=== PATIENT | female | born 1940 | race Caucasian/White ===

== ENCOUNTER 2017-02-02 07:31 | Emergency (ER) | payer OTHER ==
[2017-02-02 07:49] VITALS: BMI 20.9
[2017-02-02 08:11] VITALS: BP 189/77
[2017-02-02 08:18] LABS: BASOPHILS # (AUTO) 0.1 X10^3/uL (0.0-0.1); BASOPHILS % (AUTO) 0.9 % (0.2-1.0); EOSINOPHILS % (AUTO) 0.7 % (0.9-2.9); HEMATOCRIT 37.2 % (36.0-47.0); HEMOGLOBIN 12.8 g/dL (12.0-16.0); LYMPHOCYTES # (AUTO) 1.4 X10^3/uL (1.3-2.9); LYMPHOCYTES % (AUTO) 23.1 % (21.0-51.0); MEAN CORPUSCULAR HEMOGLOBIN 30.1 pg (27.0-34.0); MEAN CORPUSCULAR HGB CONC 34.3 g/dL (33.0-35.0); MEAN CORPUSCULAR VOLUME 87.8 fL (80.0-100.0); MEAN PLATELET VOLUME 8.7 fL (7.4-11.0); MONOCYTES # (AUTO) 0.6 x10^3/uL (0.3-0.8); MONOCYTES % (AUTO) 9.9 % (0.0-13.0); NEUTROPHILS % (AUTO) 65.4 % (42.0-75.0); PLATELET COUNT 342 X10^3/uL (150.0-450.0); RED BLOOD COUNT 4.24 X10^6/uL (3.5-5.4); RED CELL DISTRIBUTION WIDTH 13.6 % (11.6-16.5); WHITE BLOOD COUNT 6.1 X10^3/uL (3.6-10.0)
[2017-02-02 08:22] LABS: BLOOD UREA NITROGEN 12 mg/dL (7-18); CALCIUM 8.6 mg/dL (8.5-10.1); CARBON DIOXIDE 23.3 mmol/L (21-32); CHLORIDE 107 mmol/L (98-107); COR NA(FOR HYPERGLY) 142 mmol/L (136-145); CREATININE 0.75 mg/dL (0.55-1.02); SODIUM 142 mmol/L (136-145); eGFR BLACK RACES > 60 (>60); eGFR NON BLACK RACES > 60 (>60)
--- NOTE | 2017-02-02 08:36 | RAD ---
HISTORY: 76-year-old female with flu-like symptoms for 1 week. Study: Frontal view of the chest. Comparison: None. Findings: The trachea is midline. The cardiac silhouette is enlarged. The lungs are clear without focal conso lidation, effusion or pneumothorax. Soft tissues are unremarkable. Osseous structures are unremarkab le. IMPRESSION: 1. Cardiomegaly without other acute cardiopulmonary process. Reported By:
[2017-02-02] MEDS ORDERED: NS 1000 ML 1,000 ML ONE (09:10)
[2017-02-02] MEDS ORDERED: NS 1000 ML 1,000 ML IV ONE (09:16)
[2017-02-02] MEDS ORDERED: SOLU-Medrol 125 MG VIAL IVP ONE (10:39)
[2017-02-02] MEDS ORDERED: SOLU-Medrol 125 MG VIAL ONE (10:42)
[2017-02-02] MEDS ORDERED: ROCEPHIN VIAL 1 GM ONE (10:42)
[2017-02-02] MEDS ORDERED: DUONEB 0.5 MG/3 MG ONE (10:54)
[2017-02-02] MEDS ORDERED: ROCEPHIN 1 GM IV PREMIX 1 GM/50 ML IV.SOLN. IV SCH (11:00)
[2017-02-02] MEDS ORDERED: DUONEB 0.5 MG/3 MG NEB ONE (11:00)
--- NOTE | 2017-02-02 11:07 | DR.GENAD ---
HPI - PCP Primary Care Physician: amanda - HPI Comment HPI Comment: Pt is a 76 y/o WF from [place], [place] that was seen by her primary care provider, Dana Galicia NP, approximately one week in the office setting. Pt reports being told that she was influenza A positive and was started on Azithromycin and Tamiflu 7 days ago. The patient states that she has now completed both of these medications and still feels "terrible". - Complaint/Symptoms Chief Complaint Doctors Comments: Cough and congestion for one week Chief Complaint:: "I went to the doctor thursday and tested positive for the flu they gave me fluids and an antibotic and im no better and out of my antibotic now." - Source History Provided: Patient - Mode of Arrival Mode of Arrival: Ambulatory - Timing Onset of Chief Complaint: 01/27/17 - Duration Duration: Since Onset How lon Duration: Days - Severity Severity: Moderate PMH - PMH Past Medical History: Yes Past Medical History: Hypertension Past Surgical History: Yes Surgical History: Hysterectomy - Family History History of Family Medical Conditions: No - Social History Does patient currently use any type of tobacco product: No Have you used tobacco products in the last 12 months: No Type of Tobacco Use: None Does any household member use tobacco: No Alcohol Use: None Do you use any recreational Drugs:: No Lives With: Family Lives Where: Home - infectious screening In the last 2 months have you had wt loss of >10#?: NO Have you had fever, night sweats or hemotysis?: No Have you traveled outside the country in the last 6 months?: No Isolation: Standard ROS - Review of Systems Constitutional: See HPI Eyes: No Symptoms Reported ENTM: No Symptoms Reported Respiratoy: See HPI Cardiovascular: No Symptoms Reported Gastrointestinal/Abdominal: No Symptoms Reported Genitourinary: No Symptoms Reported Neurological: No Symptoms Reported Musculoskeletal: No Symptoms Reported Integumentary: No Symptoms Reported Hematologic/Lymphatic: No Symptoms Reported Endocrine: No Symptoms Reported Psychiatric: No Symptoms Reported PE - Vital Signs Vitals: Temperature 97.7 F Pulse Rate 79 Respiratory Rate 18 Blood Pressure [Left Arm] 189/77 Blood Pressure 212/81 O2 Sat by Pulse Oximetry 98 - General Limitations: No Limitations - Head Head Exam: Normal Inspection - Eyes Eye exam: Normal Appearance - ENT ENT Exam: Normal Exam External Ear Exam: Normal External Inspection Nose Exam: Normal Nose Exam Mouth Exam: Normal Inspection Throat Exam: Normal Inspection - Neck Neck Exam: Normal Inspection - Chest Chest Inspection: Normal Inspection - Respiratory Respiratory Exam: Bilateral Wheezing, Bilateral Rhonchi - Cardiovascular Cardiovascular Exam: Regular Rate - Abdominal Exam Abdominal Exam: Normal Inspection, Normal Bowel Sounds, Soft - Extremities Extremities Exam: Normal Inspection - Back Back Exam: Normal Inspection - Neurologic Neurological Exam: Alert, Oriented X3, CN II-XII Intact, Normal Gait - Psychiatric Psychiatric Exam: Normal Affect - Skin Skin Exam: Warm, Dry, Intact Course - Treatment Treatment: NS X 1 liters. Solumedrol 125mg IV X one. Rocephin 1gm IV X one. Albuterol JN X one - Reevaluation 1st: Improved (Initially seen by Dr. Dangelo) - Education/Counseling Education/Counseling: Patient Educated On: Treatment, Diagnosis, Prognosis, Needs for Follow Up (F/U with primary care provider within the next 7 days) ROR - Labs Reviewed Result Diagrams: 02/02/17 08:13 02/02/17 08:13 Laboratory: WBC 6.1 X10^3/uL (3.6-10.0) 02/02/17 08:13 RBC 4.24 X10^6/uL (3.5-5.4) 02/02/17 08:13 Hgb 12.8 g/dL (12.0-16.0) 02/02/17 08:13 Hct 37.2 % (36.0-47.0) 02/02/17 08:13 MCV 87.8 fL (80.0-100.0) 02/02/17 08:13 MCH 30.1 pg (27.0-34.0) 02/02/17 08:13 MCHC 34.3 g/dL (33.0-35.0) 02/02/17 08:13 RDW 13.6 % (11.6-16.5) 02/02/17 08:13 Plt Count 342 X10^3/uL (150.0-450.0) 02/02/17 08:13 MPV 8.7 fL (7.4-11.0) 02/02/17 08:13 Neut % 65.4 % (42.0-75.0) 02/02/17 08:13 Lymph % 23.1 % (21.0-51.0) 02/02/17 08:13 [place] % 9.9 % (0.0-13.0) 02/02/17 08:13 Eos % 0.7 % (0.9-2.9) L 02/02/17 08:13 Baso % 0.9 % (0.2-1.0) 02/02/17 08:13 Neut # 4.0 x10^3/uL (2.2-4.8) 02/02/17 08:13 Lymph # 1.4 X10^3/uL (1.3-2.9) 02/02/17 08:13 [place] # 0.6 x10^3/uL (0.3-0.8) 02/02/17 08:13 Eos # 0.0 x10^3/uL (0.0-0.2) 02/02/17 08:13 Baso # 0.1 X10^3/uL (0.0-0.1) 02/02/17 08:13 Absolute Nucleated RBC 0.0 /100WBC 02/02/17 08:13 Sodium 142 mmol/L (136-145) 02/02/17 08:13 Corrected Sodium 142 mmol/L (136-145) 02/02/17 08:13 Potassium 3.5 mmol/L (3.5-5.1) 02/02/17 08:13 Chloride 107 mmol/L (98-107) 02/02/17 08:13 Carbon Dioxide 23.3 mmol/L (21-32) 02/02/17 08:13 BUN 12 mg/dL (7-18) 02/02/17 08:13 Creatinine 0.75 mg/dL (0.55-1.02) 02/02/17 08:13 Est GFR (MDRD) Af Amer > 60 (>60) 02/02/17 08:13 Est GFR (MDRD) Non-Af > 60 (>60) 02/02/17 08:13 Glucose 111 mg/dL (65-99) H 02/02/17 08:13 Calcium 8.6 mg/dL (8.5-10.1) 02/02/17 08:13 - XRAY XRAY Interpreted by: Radiologist (No acute infiltrates) - Diagnosis Discharge Problem: Influenza A - Discharge Plan Disposition: 01 HOME, SELF-CARE Condition: Stable Prescriptions: Levofloxacin [LEVAQUIN TAB 250 MG *] 250 mg PO Q24H #7 tab Oseltamivir Phosphate [Tamiflu] 75 mg PO BID #14 cap - Follow ups/Referrals Follow ups/Referrals: Elder Coy [Primary Care Provider] - 3 days - Instructions Instructions: Influenza, Adult, [id number]
== END 2017-02-02 11:55 | disposition home or self-care (01) ==
LOC: ER 07:53
DX: J11.1 Influenza due to unidentified influenza virus with other respiratory manifestations (principal); I51.7 Cardiomegaly
CPT/HCPCS: 36415; 71010; 80048; 85025; 94640; 96365; 96374; 96375; 99283; A4222; J0696; J2930; J7620

== ENCOUNTER 2021-07-06 20:52 | Inpatient (IN) ==
--- NOTE | 2021-07-06 21:45 | DR.EXTPAIN ---
HPI Time seen Time Seen by Provider: 07/06/21 21:45 PCP Primary Care Physician: antoinette patel HPI Comment HPI Comment: PATIENT IS 81YR OLD FEMALE IN ER WITH NAUSEA, VOMITING AND DIARRHEA TIMES 3 DAYS. NO FEVER OR DYSURIA. TOOK ZOFRAN AND IMMODIUM THIS AM. DENIES CONTACT EXPOSURE. YEIMI HAVING ABDOMINAL PAIN AND GENERALIZED WEANESS. Complaint/Symptoms Chief Complaint Doctor Comments: NAUSEA, VOMITING DIARRHEA TIMES 3 DAYS. Chief Complaint:: "PT STATES SHES THROWING UP AND HAVING DIARHEEA SINCE THURSDAY NIGHT. SHE STATES FRANCIE GIBBS CALLED IN ZOFRAN AND SHE HAS TAKEN IT P RN. SHE REPORTS BEING UNABLE TO EAT AND KEEP ANYTHING DOWN SINCE THURSDAY." Self Treatment fo Chief Complaint: ZOFRAN 6PM. IMMODIUM THIS MORNING. COVID-19 Coronavirus risk:travel/contact w/high risk person: No Has patient experienced Coronavirus symptoms: No Nurses notes reviewed Nurses Notes Review: Yes Source History Provided: Patient and Family Member Mode of arrival Mode of Arrival: Ambulatory Timing Onset of Chief Complaint: 07/03/21 Associated signs and symptoms Associated Signs and Symptoms: Weakness, Pain, Abdominal Pain, Nausea and Vomiting PMH PMH Past Medical History: Yes Past Medical History: Anxiety, Arthritis, Depression, Dyslipidemia, GERD and Hypertension Past Surgical History: Yes Surgical History: Hysterectomy Family History History of Family Medical Conditions: Yes Family Medical History: Hypertension Social History Alcohol Use: None Do you use any recreational Drugs:: No Lives With: Family Lives Where: Home Infectious screening Have you traveled outside the country in the last 6 months?: No Isolation: Standard ROS Review of Systems Constitutional: See HPI, Weakness and Fatigue; negative Fever Eyes: No Symptoms Reported and See HPI; negative Blurred Vision ENTM: No Symptoms Reported and See HPI; negative Nose Discharge or Nose Congestion Respiratoy: No Symptoms Reported and See HPI; negative Moist Cough, Short of Breath or Wheezing Cardiovascular: No Symptoms Reported and See HPI; negative Chest Pain Gastrointestinal/Abdominal: See HPI, Abdominal Pain, Diarrhea, Nausea and Vomiting Genitourinary: No Symptoms Reported and See HPI; negative Dysuria Neurological: No Symptoms Reported, See HPI and Weakness; negative Headache or Dizziness Musculoskeletal: No Symptoms Reported and See HPI; negative Muscle Pain Integumentary: No Symptoms Reported; negative Rash or Juandice Hematologic/Lymphatic: See HPI and Easy Bruising Endocrine: No Symptoms Reported and See HPI; negative Increased Thirst or Increased Urine Psychiatric: No Symptoms Reported and See HPI All Other Systems: Reviewed and Negative PE Vital Signs Vitals: Temperature 97.9 F Pulse Rate 107 Respiratory Rate 18 Blood Pressure [Left Arm] 189/77 Blood Pressure 125/60 O2 Sat by Pulse Oximetry 92 General Limitations: No Limitations General Appearance: Alert and In No Apparent Distress Head Head Exam: Normal Inspection and Atraumatic Eyes Eye exam: Normal Appearance; negative Scleral Icterus or Conjunctival Injection ENT ENT Exam: Normal Exam Neck Neck Exam: Normal Inspection and Trachea Midline; negative Tenderness Chest Chest Inspection: Normal Inspection and Symmetric Chest Wall Rise; negative Tenderness Respiratory Respiratory Exam: Normal Lung Sounds Bilat; negative Accessory Muscle Use, Chest Wall Tenderness or Respiratory Distress Respiratory Exam: Bilateral: Rhonchi Cardiovascular Cardiovascular Exam: Regular Rate, Normal Rhythm and Normal Heart Sounds; negative Systolic Murmur or Diastolic Murmur Abdominal Exam Abdominal Exam: Normal Inspection, Normal Bowel Sounds, Soft and Tenderness Extremities Extremities Exam: Normal Inspection and Normal Capillary Refill Back Back Exam: Normal Inspection; negative (R) CVA Tenderness or (L) CVA Tenderness Neurological Neurological Exam: Alert, Oriented X3 and CN II-XII Intact Psychiatric Psychiatric Exam: Normal Affect and Normal Mood Skin Skin Exam: Warm, Dry, Intact and Normal Color MDM Differential Diagnosis Differential Diagnosis: Other (GASTROENTERITIS, VIRAL SYNDROM, BOWEL OBST., DEHYDRATION, UTI, WEAKNENN.) COURSE Treatment Treatment: SEE ORDERS DONE WHILE PATIENT WAS IN ER. Consultation Consultation Comments: DISCUSSED PATIENT WITH DR. BENAVIDES. SHE WILL ADMIT PATIENT. Education/Counseling Education/Counseling: Patient Educated On: Diagnosis ROR Labs Reviewed Laboratory Results Reviewed?: Yes Result Diagrams: 07/19/21 04:26 07/19/21 04:26 Laboratory: WBC 18.2 X10^3/uL (3.6-10.0) H 07/06/21 22:34 RBC 3.75 X10^6/uL (3.5-5.4) 07/06/21 22:34 Hgb 10.6 g/dL (12.0-16.0) L 07/06/21 22:34 Hct 31.8 % (36.0-47.0) L 07/06/21 22:34 MCV 85.0 fL (80.0-100.0) 07/06/21 22:34 MCH 28.3 pg (27.0-34.0) 07/06/21: MCHC 33.3 g/dL (33.0-35.0) 07/06/21: RDW 14.6 % (11.6-16.5) 07/06/21: Plt Count 301 X10^3/uL (150.0-450.0) 07/06/21 22: MPV 8.7 fL (7.4-11.0) 07/06/21 22: Neut % (Auto) 85.7 % (42.0-75.0) H 07/06/21 22: Lymph % (Auto) 3.7 % (21.0-51.0) L 07/06/21: [place] % (Auto) 10.1 % (0.0-13.0) 07/06/21: Eos % (Auto) 0.2 % (0.9-2.9) L 07/06/21: Baso % (Auto) 0.3 % (0.2-1.0) 07/06/21: Neut # (Auto) 15.6 x10^3/uL (2.2-4.8) H 07/06/21: Lymph # (Auto) 0.7 X10^3/uL (1.3-2.9) L 07/06/21 22: [place] # (Auto) 1.8 x10^3/uL (0.3-0.8) H 07/06/21: Eos # (Auto) 0.0 x10^3/uL (0.0-0.2) 07/06/21 22: Baso # (Auto) 0.1 X10^3/uL (0.0-0.1) 07/06/21: Absolute Nucleated RBC 0.1 /100WBC 07/06/21: Sodium 126 mmol/L (136-145) L 07/06/21 22: Corrected Sodium 127 mmol/L (136-145) L 07/06/21 22: Potassium 3.6 mmol/L (3.5-5.1) 07/06/21 22: Chloride 91 mmol/L (98-107) L 07/06/21 22:34 Carbon Dioxide 25.3 mmol/L (21-32) 07/06/21 22:34 BUN 44 mg/dL (7-18) H 07/06/21 22:34 Creatinine 3.87 mg/dL (0.55-1.02) H 07/06/21 22:34 Est GFR (MDRD) Af Amer 14 (>60) L 07/06/21 22:34 Est GFR (MDRD) Non-Af 12 (>60) L 07/06/21 22:34 Glucose 126 mg/dL (65-99) H 07/06/21 22:34 Calcium 8.6 mg/dL (8.5-10.1) 07/06/21 22:34 Corrected Calcium 9.4 mg/dL (8.5-10.1) 07/06/21 22:34 Total Bilirubin 0.70 mg/dL (0.2-1.0) 07/06/21 22:34 AST 242 Units/L (15-37) H 07/06/21 22:34 ALT 124 Units/L (12-78) H 07/06/21 22:34 Alkaline Phosphatase 80 Units/L (46-116) 07/06/21 22:34 Total Protein 6.9 g/dL (6.4-8.2) 07/06/21 22:34 Albumin 3.0 g/dL (3.4-5.0) L 07/06/21 22:34 Globulin 3.9 g/dL (2.5-4.5) 07/06/21 22:34 Albumin/Globulin Ratio 0.8 Ratio (1.1-2.1) L 07/06/21 22:34 Amylase 35 Units/L (25-115) 07/06/21 22:34 Lipase 52 Units/L (73-393) L 07/06/21 22:34 SARS-CoV-2 (PCR) Negative (NEGATIVE) 07/07/21 00:32 XRAY XRAY Interpreted by: Radiologist (REPORT NOTED.) EKG Rate: 91 [place]: Normal Rhythm: NSR and PVCs Block: None Hypertrophy: None ST: Old, Ant and Infarct Opioid Opioid Risk Tool Total: 0 Total Score Risk Category: Low Risk Copyright: Mat COLLINS predicting aberrant behaviors Diagnosis Discharge Problem: Abdominal pain, Cholecystitis, Acute renal insufficiency, Acute dehydration, Acute hyponatremia
[2021-07-06] MEDS ORDERED: DEMEROL INJ IVP ONE (22:25)
[2021-07-06] MEDS ORDERED: ZOFRAN INJ 4 MG VIAL IVP ONE (22:25)
[2021-07-06] MEDS ORDERED: TORADOL 15 MG VIAL IM ONE (22:30)
[2021-07-06 22:41] LABS: BASOPHILS # (AUTO) 0.1 X10^3/uL (0.0-0.1); BASOPHILS % (AUTO) 0.3 % (0.2-1.0); EOSINOPHILS % (AUTO) 0.2 % (0.9-2.9); HEMATOCRIT 31.8 % (36.0-47.0); HEMOGLOBIN 10.6 g/dL (12.0-16.0); LYMPHOCYTES # (AUTO) 0.7 X10^3/uL (1.3-2.9); LYMPHOCYTES % (AUTO) 3.7 % (21.0-51.0); MEAN CORPUSCULAR HEMOGLOBIN 28.3 pg (27.0-34.0); MEAN CORPUSCULAR HGB CONC 33.3 g/dL (33.0-35.0); MEAN PLATELET VOLUME 8.7 fL (7.4-11.0); MONOCYTES # (AUTO) 1.8 x10^3/uL (0.3-0.8); MONOCYTES % (AUTO) 10.1 % (0.0-13.0); NEUTROPHILS # (AUTO) 15.6 x10^3/uL (2.2-4.8); NEUTROPHILS % (AUTO) 85.7 % (42.0-75.0); RED BLOOD COUNT 3.75 X10^6/uL (3.5-5.4); RED CELL DISTRIBUTION WIDTH 14.6 % (11.6-16.5); WHITE BLOOD COUNT 18.2 X10^3/uL (3.6-10.0)
[2021-07-06] MEDS ORDERED: TORADOL 15 MG VIAL ONE (22:54)
[2021-07-06] MEDS ORDERED: ZOFRAN INJ 4 MG VIAL ONE (22:54)
[2021-07-06] MEDS ORDERED: NS 1,000 ML IV 1,000 ML ONE (22:54)
[2021-07-06 22:56] LABS: CALCIUM 8.6 mg/dL (8.5-10.1); CARBON DIOXIDE 25.3 mmol/L (21-32); COR CA(FOR HYPOALB) 9.4 mg/dL (8.5-10.1); CREATININE 3.87 mg/dL (0.55-1.02); TOTAL PROTEIN 6.9 g/dL (6.4-8.2)
--- NOTE | 2021-07-06 23:05 | CT ---
PROCEDURE: CT Abdomen and Pelvis without Contrast .HISTORY: Nausea, vomiting, and diarrhea with right upper quadrant pain.TECHNIQUE: Axial images were performed through the abdomen and pelvis without the administration of IV contrast with multiplanar reformations . Oral contrast was not administered . Dose reduction techniques including Automated Exposure Control (AEC) and adjustment of mA and kV were utilized .COMPARISON: None .TECHNICAL QUALITY: Satisfactory .FINDINGS:Linear scar versus discoid atelectasis lung bases. Moderate hiatal hernia.Liver, spleen, adrenals, pancreas show no abnormality.Kidneys show no stones or obstruction.Inhomogeneous gallbladder lumen with thickened wall and pericholecystic stranding consistent with gallbladder disease and acute cholecystitis. Normal biliary tree.Trace ascites tip of the right lobe of the liver. No pneumoperitoneum.Mild atherosclerosis aorta.No lymphadenopathy.No bowel obstruction or inflammation. Appendix is not visualized.Pelvis shows previous hysterectomy and no masses or free fluid. Normal urinary bladder.No acute bony abnormality.IMPRESSION:1. Sludge or stones in the gallbladder with acute cholecystitis.2. No other significant abnormality involving abdomen or pelvis.3. Moderate hiatal hernia.Electronically signed by: Juan Francisco Child (July 06, 2021 23:05:22)
[2021-07-06] MEDS: NS 1,000 ML IV 1,000 ML IV SCH (23:26)
[2021-07-07] MEDS ORDERED: ZOSYN VIAL 3.375 GRAMS 3.375 G in NS 100 ML IV 100 ML IV ONE (00:09)
[2021-07-07] MEDS ORDERED: ZOSYN VIAL 3.375 GRAMS IV ONE (00:24)
[2021-07-07] MEDS ORDERED: NS 100 ML IV 100 ML ONE (00:25)
[2021-07-07] MEDS ORDERED: ZOFRAN INJ 4 MG VIAL IVP PRN (01:34)
--- NOTE | 2021-07-07 03:57 | RAD ---
PROCEDURE: Chest X-ray 1 View .HISTORY: Preoperative study for cholecystectomy.TECHNIQUE: AP view .COMPARISON: None .TECHNICAL QUALITY: Satisfactory .FINDINGS:Normal size heart .Mediastinum and hilar regions show no masses or lymphadenopathy .Normal central vascularity .No pulmonary consolidation, masses, pleural fluid, or pneumothorax .No acute bony abnormality .IMPRESSION:No active cardiopulmonary disease .Electronically signed by: Juan Francisco Child (July 07, 2021 03:56:29)
[2021-07-07 05:31] LABS: BASOPHILS # (AUTO) 0.1 X10^3/uL (0.0-0.1); BASOPHILS % (AUTO) 0.4 % (0.2-1.0); EOSINOPHILS # (AUTO) 0.1 x10^3/uL (0.0-0.2); EOSINOPHILS % (AUTO) 1.1 % (0.9-2.9); HEMATOCRIT 28.9 % (36.0-47.0); HEMOGLOBIN 9.7 g/dL (12.0-16.0); LYMPHOCYTES # (AUTO) 0.6 X10^3/uL (1.3-2.9); LYMPHOCYTES % (AUTO) 4.4 % (21.0-51.0); MEAN CORPUSCULAR HEMOGLOBIN 28.5 pg (27.0-34.0); MEAN CORPUSCULAR HGB CONC 33.5 g/dL (33.0-35.0); MEAN CORPUSCULAR VOLUME 85.1 fL (80.0-100.0); MEAN PLATELET VOLUME 9.2 fL (7.4-11.0); MONOCYTES # (AUTO) 1.4 x10^3/uL (0.3-0.8); MONOCYTES % (AUTO) 10.7 % (0.0-13.0); NEUTROPHILS # (AUTO) 10.9 x10^3/uL (2.2-4.8); NEUTROPHILS % (AUTO) 83.4 % (42.0-75.0); RED BLOOD COUNT 3.39 X10^6/uL (3.5-5.4); RED CELL DISTRIBUTION WIDTH 14.4 % (11.6-16.5); WHITE BLOOD COUNT 13.1 X10^3/uL (3.6-10.0)
[2021-07-07 05:38] LABS: ALBUMIN 2.5 g/dL (3.4-5.0); CARBON DIOXIDE 22.9 mmol/L (21-32); COR CA(FOR HYPOALB) 9.2 mg/dL (8.5-10.1); CREATININE 4.06 mg/dL (0.55-1.02); TOTAL PROTEIN 6.1 g/dL (6.4-8.2)
[2021-07-07] MEDS ORDERED: POTASSIUM CHL 40 MEQ/NS 0.45% 500 ML IV PRN (06:14)
[2021-07-07] MEDS ORDERED: POTASSIUM CHLORIDE LIQ 20 MEQ UDC PO PRN (06:14)
[2021-07-07] MEDS ORDERED: KLOR-CON PO PRN (06:14)
[2021-07-07] MEDS ORDERED: K-RIDER 10 MEQ/NS 100 ML 10 MEQ/100 ML BAG IV PRN (06:14)
[2021-07-07] MEDS ORDERED: POTASSIUM CHL 60 MEQ/NS 0.45% 500 ML IV PRN (06:14)
[2021-07-07] MEDS: NS 1,000 ML IV 1,000 ML IV SCH ×4 (08:23→22:49)
[2021-07-07] MEDS: ZOSYN VIAL 3.375 GRAMS 3.375 G in NS 100 ML IV 100 ML IV SCH ×3 (10:00→21:10)
--- NOTE | 2021-07-07 11:10 | DR.H&P ---
H&P History & Physical for Day of: H&P Date: 07/07/21 Chief Complaint Chief Complaint: abdominal pain, nausea/vomiting Allergies Allergies Allergy/AdvReac Type Severity Reaction Status Date / Time codeine Allergy Verified 02/02/17 07:32 History of Present Illness History of Present Illness: Ms Ayala is a 81y/o female with a PMH of HTN, HLD and arthritis who presented with worsening abdominal pain, N/V and poor oral intake. She states her symptoms started Wed after she ate fried fish. She continue to have worsening right sided abdominal pain and right shoulder pain. She has not been able to keep anything down since then. Denies fever or chills. ER work up included CTAP which showed gall bladder stones/sludge concerning for acute cholecystitis. She was admitted for further care, surgery was consulted. Patient was started on IV fluids, antibiotics and pain control. She continues to have RUQ pain, controlled with medications. Denies hx of CAD or DM. No prev surgical complications. Labs reviewed: BUN/Cr 49/4.06 K: 3.3 AST/ALT: 143/95 WBC 13.1 Plan: follow surgery recommendations, continue hydration, pain control. Continue IV Zosyn. Replace K as per protocol. Monitor AM labs. Past Medical History Past Medical History: Anxiety, Arthritis, Depression, Dyslipidemia, GERD and Hypertension Past Surgical History Surgical History: Appendectomy and Hysterectomy Family History Family Medical History: Diabetes Mellitus, Cancer, [place], Heart Failure and Hypertension Social History Does patient currently use any type of tobacco product: No Have you used tobacco products in the last 12 months: No Type of Tobacco Use: None Does any household member use tobacco: No Alcohol Use: None Drug Use: None Prescription drug monitoring program results: PDMP reviewed and no concerns identified Medications Home Medications: codeine Allergy (Verified 02/02/17 07:32) CONTINUE taking the following medications clonazepam 0.5 mg PO DAILY PRN 07/07/21 [History] fenofibrate nanocrystallized 145 mg PO DAILY 07/07/21 [History] lisinopril 10 mg PO DAILY 07/07/21 [History] ondansetron 4 mg TRANSLINGUAL Q8H PRN 07/07/21 [History] pantoprazole 40 mg PO DAILY 07/07/21 [History] paroxetine HCl 20 mg PO DAILY 07/07/21 [History] temazepam 30 mg PO HS 07/07/21 [History] Labs Result Diagrams: 07/07/21 04:54 07/07/21 04:54 Labs: Laboratory WBC 13.1 X10^3/uL (3.6-10.0) H 07/07/21 04:54 RBC 3.39 X10^6/uL (3.5-5.4) L 07/07/21 04:54 Hgb 9.7 g/dL (12.0-16.0) L 07/07/21 04:54 Hct 28.9 % (36.0-47.0) L 07/07/21 04:54 MCV 85.1 fL (80.0-100.0) 07/07/21 04:54 MCH 28.5 pg (27.0-34.0) 07/07/21 04:54 MCHC 33.5 g/dL (33.0-35.0) 07/07/21 04:54 RDW 14.4 % (11.6-16.5) 07/07/21 04:54 Plt Count 261 X10^3/uL (150.0-450.0) 07/07/21 04:54 MPV 9.2 fL (7.4-11.0) 07/07/21 04:54 Neut % (Auto) 83.4 % (42.0-75.0) H 07/07/21 04:54 Lymph % (Auto) 4.4 % (21.0-51.0) L 07/07/21 04:54 [place] % (Auto) 10.7 % (0.0-13.0) 07/07/21 04:54 Eos % (Auto) 1.1 % (0.9-2.9) 07/07/21 04:54 Baso % (Auto) 0.4 % (0.2-1.0) 07/07/21 04:54 Neut # (Auto) 10.9 x10^3/uL (2.2-4.8) H 07/07/21 04:54 Lymph # (Auto) 0.6 X10^3/uL (1.3-2.9) L 07/07/21 04:54 [place] # (Auto) 1.4 x10^3/uL (0.3-0.8) H 07/07/21 04:54 Eos # (Auto) 0.1 x10^3/uL (0.0-0.2) 07/07/21 04:54 Baso # (Auto) 0.1 X10^3/uL (0.0-0.1) 07/07/21 04:54 Absolute Nucleated RBC 0.0 /100WBC 07/07/21 04:54 Sodium 128 mmol/L (136-145) L 07/07/21 04:54 Corrected Sodium 128 mmol/L (136-145) L 07/07/21 04:54 Potassium 3.3 mmol/L (3.5-5.1) L 07/07/21 04:54 Chloride 94 mmol/L (98-107) L 07/07/21 04:54 Carbon Dioxide 22.9 mmol/L (21-32) 07/07/21 04:54 BUN 49 mg/dL (7-18) H 07/07/21 04:54 Creatinine 4.06 mg/dL (0.55-1.02) H 07/07/21 04:54 Est GFR (MDRD) Af Amer 14 (>60) L 07/07/21 04:54 Est GFR (MDRD) Non-Af 11 (>60) L 07/07/21 04:54 Glucose 112 mg/dL (65-99) H 07/07/21 04:54 Calcium 8.0 mg/dL (8.5-10.1) L 07/07/21 04:54 Corrected Calcium 9.2 mg/dL (8.5-10.1) 07/07/21 04:54 Total Bilirubin 0.60 mg/dL (0.2-1.0) 07/07/21 04:54 AST 143 Units/L (15-37) H 07/07/21 04:54 ALT 95 Units/L (12-78) H 07/07/21 04:54 Alkaline Phosphatase 69 Units/L (46-116) 07/07/21 04:54 Total Protein 6.1 g/dL (6.4-8.2) L 07/07/21 04:54 Albumin 2.5 g/dL (3.4-5.0) L 07/07/21 04:54 Globulin 3.6 g/dL (2.5-4.5) 07/07/21 04:54 Albumin/Globulin Ratio 0.7 Ratio (1.1-2.1) L 07/07/21 04:54 Amylase 35 Units/L (25-115) 07/06/21 22:34 Lipase 52 Units/L (73-393) L 07/06/21 22:34 SARS-CoV-2 (PCR) Negative (NEGATIVE) 07/07/21 00:32 Review of Systems Constitutional: Weakness and Malaise Eyes: No Symptoms Reported ENT: No Symptoms Reported Respiratory: No Symptoms Reported Cardiovascular: No Symptoms Reported Gastrointestinal: Nausea, Vomiting and Abdominal Pain Genitourinary: No Symptoms Reported Musculoskeletal: No Symptoms Reported Skin: No Symptoms Reported Neurological: No Symptoms Reported Physical Exam Vital Signs: Temperature 98.7 F Pulse Rate [Brachial] 95 Pulse Rate 107 Respiratory Rate 20 Blood Pressure [Right Arm] 126/60 Blood Pressure [Left Arm] 189/77 Blood Pressure 125/60 O2 Sat by Pulse Oximetry 95 Oriented: Normal Eyes: Normal Ear: Normal Nose: Normal Throat: Normal Respiratory: Clear Throughout Cardiovascular: Normal Auscultation: Bowel Sounds: Normal Tenderness: RUQ, Epigastric and Moderate Skin: Normal Musculoskeletal: Normal Psychiatric: Anxiety Mood Description: Calm Affect: Normal Speech Pattern: Clear and Appropriate Assessment/Plan (1) Acute cholecystitis: Status: Acute (2) JESUS (acute kidney injury): Status: Acute (3) Hypokalemia: Status: Acute (4) Dehydration: Status: Acute (5) Anemia: Qualifiers: Anemia type: unspecified type Qualified Code(s): D64.9 - Anemia, unspecified Status: Acute Review H&P Reviewed: Yes Patient was examined?: Yes
[2021-07-07] MEDS: K-DUR TAB 20 MEQ PO PRN (11:14)
[2021-07-07] MEDS ORDERED: KLONOPIN TAB 0.5 MG PO PRN (12:40)
[2021-07-07] MEDS ORDERED: NS 1,000 ML IV 1,000 ML IV ONE (13:06)
[2021-07-07] MEDS: TRICOR TAB 145 MG PO SCH (14:54)
[2021-07-07] MEDS: PROTONIX TAB 40 MG PO SCH (14:54)
[2021-07-07] MEDS: PAXIL PO SCH (14:54)
[2021-07-07 15:28] LABS: BILIRUBIN,URINE NEGATIVE (NEGATIVE); BLOOD/HEMOGLOBIN,URINE 1+ (NEGATIVE); GLUCOSE, URINE NEGATIVE (NEGATIVE); KETONES,URINE NEGATIVE (NEGATIVE); LEUKOCYTE ESTERASE ,URINE 1+ (NEGATIVE); NITRITES,URINE NEGATIVE (NEGATIVE); PROTEIN,URINE 2+ (NEGATIVE); UROBILINOGEN,URINE NORMAL (NORMAL)
[2021-07-07 15:42] LABS: APPEARANCE,URINE SLIGHTLY HAZY (CLEAR); COLOR,URINE DARK YELLOW (YELLOW)
[2021-07-07 15:43] LABS: BACTERIA,URINE TRACE /HPF (NEGATIVE); SQUAMOUS EPITHELIAL CELL,UR MANY /HPF (NEGATIVE)
[2021-07-07] MEDS: DEMEROL INJ IVP PRN (17:20)
[2021-07-07 19:20] VITALS: BMI 24.5
[2021-07-07] MEDS ORDERED: RESTORIL CAP 30 MG PO SCH (21:00)
--- NOTE | 2021-07-07 23:43 | DR.CONSULT ---
CONSULT Consultation for Day of: Date: 07/07/21 Chief Complaint Chief Complaint: 81 yo female with 5 day history of RUQ pain which began with meals. Seen in ER and CT consistent with acute cholecystitis possible sludge vs gallstones . Patietn very dehydrated with Creatinine > 4 ( past was 0.75). Also hyponatremic consistent with severe dehydration. Allergies Allergies Allergy/AdvReac Type Severity Reaction Status Date / Time codeine Allergy Verified 02/02/17 07:32 History of Present Illness History of Present Illness: As above Past Medical History Past Medical History: Anxiety, Arthritis, Depression, Dyslipidemia, GERD and Hypertension Past Surgical History Surgical History: Appendectomy and Hysterectomy Family History Family Medical History: Diabetes Mellitus, Cancer, [place], Heart Failure and Hypertension Social History Does patient currently use any type of tobacco product: No Have you used tobacco products in the last 12 months: No Type of Tobacco Use: None Does any household member use tobacco: No Alcohol Use: None Drug Use: None Medications Home Medications: codeine Allergy (Verified 02/02/17 07:32) CONTINUE taking the following medications clonazepam 0.5 mg PO DAILY PRN 07/07/21 [History] fenofibrate nanocrystallized 145 mg PO DAILY 07/07/21 [History] lisinopril 10 mg PO DAILY 07/07/21 [History] ondansetron 4 mg TRANSLINGUAL Q8H PRN 07/07/21 [History] pantoprazole 40 mg PO DAILY 07/07/21 [History] paroxetine HCl 20 mg PO DAILY 07/07/21 [History] temazepam 30 mg PO HS 07/07/21 [History] Review of Systems Constitutional: See HPI Eyes: No Symptoms Reported ENT: No Symptoms Reported Respiratory: No Symptoms Reported Cardiovascular: No Symptoms Reported Gastrointestinal: See HPI, Nausea, Vomiting, Abdominal Pain and Diarrhea Genitourinary: No Symptoms Reported Musculoskeletal: No Symptoms Reported Skin: No Symptoms Reported Neurological: No Symptoms Reported Physical Exam Vital Signs: Temperature 97.4 F Pulse Rate [Brachial] 111 Pulse Rate 107 Respiratory Rate 20 Blood Pressure [Right Arm] 162/72 Blood Pressure [Left Arm] 189/77 Blood Pressure 125/60 O2 Sat by Pulse Oximetry 95 HgB = 9.7,WBC=13.1, Cr=4.06, BUN-49, Na= 129, K+ =3.3 Oriented: Normal, Time, Person and Place Eyes: Normal Ear: Normal Nose: Normal Throat: Normal Respiratory: Clear Throughout Cardiovascular: Normal : Normal Auscultation: Bowel Sounds: Normal Palpation: Other (gallbladder palpable RUQ.) Tenderness: RUQ Skin: Normal Musculoskeletal: Normal Psychiatric: Normal Mood Description: Calm Affect: Normal Speech Pattern: Clear Plan (1) Acute cholecystitis: Status: Acute Plan: IV Zoysn, Plan laparoscopic cholecystectomy tomorrow after significant fluid resuscitation. (2) JESUS (acute kidney injury): Status: Acute Plan: Fluid resiscitation (3) Hypokalemia: Status: Acute Plan: fluid resuscitation (4) Dehydration: Status: Acute (5) Anemia: Status: Acute Qualifiers: Anemia type: unspecified type Qualified Code(s): D64.9 - Anemia, unspecified
[2021-07-08] MEDS: NS 1,000 ML IV 1,000 ML IV SCH ×2 (04:12→06:01)
[2021-07-08 05:06] LABS: BASOPHILS % (AUTO) 0.2 % (0.2-1.0); EOSINOPHILS % (AUTO) 0.3 % (0.9-2.9); HEMATOCRIT 26.7 % (36.0-47.0); HEMOGLOBIN 9.1 g/dL (12.0-16.0); LYMPHOCYTES # (AUTO) 0.5 X10^3/uL (1.3-2.9); LYMPHOCYTES % (AUTO) 5.1 % (21.0-51.0); MEAN CORPUSCULAR HEMOGLOBIN 28.9 pg (27.0-34.0); MEAN CORPUSCULAR HGB CONC 33.9 g/dL (33.0-35.0); MEAN CORPUSCULAR VOLUME 85.4 fL (80.0-100.0); MEAN PLATELET VOLUME 9.3 fL (7.4-11.0); MONOCYTES # (AUTO) 1.7 x10^3/uL (0.3-0.8); MONOCYTES % (AUTO) 16.2 % (0.0-13.0); NEUTROPHILS % (AUTO) 78.2 % (42.0-75.0); RED BLOOD COUNT 3.13 X10^6/uL (3.5-5.4); RED CELL DISTRIBUTION WIDTH 14.6 % (11.6-16.5); WHITE BLOOD COUNT 10.2 X10^3/uL (3.6-10.0)
[2021-07-08] MEDS: ZOSYN VIAL 3.375 GRAMS 3.375 G in NS 100 ML IV 100 ML IV SCH (05:07)
[2021-07-08 05:13] LABS: ALBUMIN 2.1 g/dL (3.4-5.0); CALCIUM 7.5 mg/dL (8.5-10.1); CARBON DIOXIDE 18.5 mmol/L (21-32); CREATININE 1.96 mg/dL (0.55-1.02); TOTAL PROTEIN 5.6 g/dL (6.4-8.2)
[2021-07-08] MEDS ORDERED: MARCAINE 0.5% ONE (08:23)
[2021-07-08] MEDS ORDERED: NS 1,000 ML IV 1,000 ML ONE (08:42)
[2021-07-08] MEDS ORDERED: VERSED ONE (09:02)
[2021-07-08] MEDS ORDERED: QUELICIN (OR ANECTINE) ONE (09:02)
[2021-07-08] MEDS ORDERED: ZOFRAN INJ 4 MG VIAL ONE (09:02)
[2021-07-08] MEDS ORDERED: ZEMURON 100 MG VIAL ONE (09:02)
[2021-07-08] MEDS ORDERED: FENTANYL VIAL INJ 250 mcg ONE (09:02)
[2021-07-08] MEDS ORDERED: DIPRIVAN VIAL 20 ML ONE (09:03)
[2021-07-08] MEDS ORDERED: SUPRANE ONE (09:07)
[2021-07-08] MEDS ORDERED: BRIDION ONE (09:30)
--- NOTE | 2021-07-08 10:25 | OR.IMMED ---
IMMEDIATE POST-OP NOTE Immediate Post-Op Note Pre-Op Diagnosis: acute cholecystitis Post-Op Diagnosis: cholelithiasis and acute cholecystitis Procedure: laparoscopic cholecystectomy Description of Procedure: see operative summary Surgeon/Insulation Cupola Operator: Florence Findings: as above Specimens Removed: gallbladder Estimated Blood Loss: 200 cc Drains: Dash Martinez ( RUQ ij Thibodeaux's pouch) Complications: none Discharge Progress Notes: return to floor , begin diet, labs in AM Final Diagnosis: as above
[2021-07-08] MEDS ORDERED: DILAUDID INJ IVP PRN (10:26)
[2021-07-08] MEDS ORDERED: ZOFRAN INJ 4 MG VIAL IVP PRN (10:26)
[2021-07-08] MEDS ORDERED: BENADRYL INJ 50 MG VIAL IVP PRN (10:26)
[2021-07-08] MEDS ORDERED: PHENERGAN INJ 25 MG IM PRN (10:26)
[2021-07-08] MEDS ORDERED: BARHEMSYS INJ IVP PRN (10:26)
[2021-07-08] MEDS ORDERED: REGLAN INJ 10 MG VIAL IVP PRN (10:26)
[2021-07-08] MEDS: PROTONIX TAB 40 MG PO SCH (11:15)
[2021-07-08] MEDS: PAXIL PO SCH (11:15)
[2021-07-08] MEDS: LR 1,000 ML IV 1,000 ML IV SCH ×2 (12:00→20:41)
[2021-07-08] MEDS: DEMEROL INJ IVP PRN ×2 (12:11→19:40)
--- NOTE | 2021-07-08 12:20 | PCM.PROG ---
Progress Note Progress Note for Day of Date of Exam: 07/08/21 Subjective Subjective: Patient seen at bedside, no events overnight. Patient was taken for lap cholecystectomy this morning. She tolerated procedure well. She has a ERMA drain in place. Patient's O2 sats have been in the low 90s. Her renal function has improved. Labs/imaging reviewed Plan: follow surgery recommendations, diet as per surgery. Monitor ERMA drain output. Continue pain control. Oxygen prn to keep sats > 92%. Add IS. Continue Cipro and fluids. Monitor AM labs. Past Medical Family Social History Past Med/Fam/Surg Hx: No changes since H&P Allergies: Allergies codeine Allergy (Verified 02/02/17 07:32) Review of Systems ROS: No change since H&P Vital Signs and I&O's Vital Signs: Temperature 97 F Pulse Rate [Brachial] 84 Pulse Rate 88 Respiratory Rate 16 Blood Pressure [Right Arm] 162/67 Blood Pressure [Left Arm] 189/77 Blood Pressure 141/61 O2 Sat by Pulse Oximetry 95 Intake and Output: Intake & Output 07/05/21 07/06/21 07/07/21 07/08/21 23:59 23:59 23:59 23:59 Intake Total 4528 / 4528 1459 / 1459 Output Total 300 / 300 240 / 240 Balance 4228 / 4228 1219 / 1219 Physical Exam Oriented: Normal Eyes: Normal Ear: Normal Nose: Normal Throat: Normal Respiratory: Generalized and Diminished Cardiovascular: Normal Auscultation: Bowel Sounds: Normal Tenderness: Other (ERMA drain in place, dressing intact ) Skin: Normal Musculoskeletal: Normal Psychiatric: Normal Mood Description: Calm Affect: Normal Speech Pattern: Clear Laboratory and Diagnostics Result Diagrams: 07/08/21 04:30 07/08/21 04:30 Labs: Laboratory WBC 10.2 X10^3/uL (3.6-10.0) H 07/08/21 04:30 RBC 3.13 X10^6/uL (3.5-5.4) L 07/08/21 04:30 Hgb 9.1 g/dL (12.0-16.0) L 07/08/21 04:30 Hct 26.7 % (36.0-47.0) L 07/08/21 04:30 MCV 85.4 fL (80.0-100.0) 07/08/21 04:30 MCH 28.9 pg (27.0-34.0) 07/08/21 04:30 MCHC 33.9 g/dL (33.0-35.0) 07/08/21 04:30 RDW 14.6 % (11.6-16.5) 07/08/21 04:30 Plt Count 249 X10^3/uL (150.0-450.0) 07/08/21 04:30 MPV 9.3 fL (7.4-11.0) 07/08/21 04:30 Neut % (Auto) 78.2 % (42.0-75.0) H 07/08/21 04:30 Lymph % (Auto) 5.1 % (21.0-51.0) L 07/08/21 04:30 [place] % (Auto) 16.2 % (0.0-13.0) H 07/08/21 04:30 Eos % (Auto) 0.3 % (0.9-2.9) L 07/08/21 04:30 Baso % (Auto) 0.2 % (0.2-1.0) 07/08/21 04:30 Neut # (Auto) 8.0 x10^3/uL (2.2-4.8) H 07/08/21 04:30 Lymph # (Auto) 0.5 X10^3/uL (1.3-2.9) L 07/08/21 04:30 [place] # (Auto) 1.7 x10^3/uL (0.3-0.8) H 07/08/21 04:30 Eos # (Auto) 0.0 x10^3/uL (0.0-0.2) 07/08/21 04:30 Baso # (Auto) 0.0 X10^3/uL (0.0-0.1) 07/08/21 04:30 Absolute Nucleated RBC 0.0 /100WBC 07/08/21 04:30 Sodium 132 mmol/L (136-145) L 07/08/21 04:30 Corrected Sodium 132 mmol/L (136-145) L 07/08/21 04:30 Potassium 4.1 mmol/L (3.5-5.1) 07/08/21 04:30 Chloride 103 mmol/L (98-107) 07/08/21 04:30 Carbon Dioxide 18.5 mmol/L (21-32) L 07/08/21 04:30 BUN 44 mg/dL (7-18) H 07/08/21 04:30 Creatinine 1.96 mg/dL (0.55-1.02) H 07/08/21 04:30 Est GFR (MDRD) Af Amer 32 (>60) L 07/08/21 04:30 Est GFR (MDRD) Non-Af 26 (>60) L 07/08/21 04:30 Glucose 116 mg/dL (65-99) H 07/08/21 04:30 Calcium 7.5 mg/dL (8.5-10.1) L 07/08/21 04:30 Corrected Calcium 9.0 mg/dL (8.5-10.1) 07/08/21 04:30 Total Bilirubin 0.50 mg/dL (0.2-1.0) 07/08/21 04:30 AST 77 Units/L (15-37) H 07/08/21 04:30 ALT 69 Units/L (12-78) 07/08/21 04:30 Alkaline Phosphatase 116 Units/L (46-116) 07/08/21 04:30 Total Protein 5.6 g/dL (6.4-8.2) L 07/08/21 04:30 Albumin 2.1 g/dL (3.4-5.0) L 07/08/21 04:30 Globulin 3.5 g/dL (2.5-4.5) 07/08/21 04:30 Albumin/Globulin Ratio 0.6 Ratio (1.1-2.1) L 07/08/21 04:30 Amylase 35 Units/L (25-115) 07/06/21 22:34 Lipase 52 Units/L (73-393) L 07/06/21 22:34 Specimen Type Clean catch urine 07/07/21 14:55 Urine Color Dark yellow (YELLOW) 07/07/21 14:55 Urine Appearance Slightly hazy (CLEAR) 07/07/21 14:55 Urine pH 5.0 (5.0 - 8.0) 07/07/21 14:55 Ur Specific [place] 1.020 (1.000-1.030) 07/07/21 14:55 Urine Protein 2+ (NEGATIVE) 07/07/21 14:55 Urine Glucose (UA) Negative (NEGATIVE) 07/07/21 14:55 Urine Ketones Negative (NEGATIVE) 07/07/21 14:55 Urine Blood 1+ (NEGATIVE) 07/07/21 14:55 Urine Nitrite Negative (NEGATIVE) 07/07/21 14:55 Urine Bilirubin Negative (NEGATIVE) 07/07/21 14:55 Urine Urobilinogen Normal (NORMAL) 07/07/21 14:55 Ur Leukocyte Esterase 1+ (NEGATIVE) 07/07/21 14:55 Urine RBC 3-5 /HPF (0-3) A 07/07/21 14:55 Urine WBC 0-2 /HPF (0-5) 07/07/21 14:55 Ur Squamous Epith Cells Many /HPF (NEGATIVE) 07/07/21 14:55 Amorphous Sediment Trace /HPF (NEGATIVE) 07/07/21 14:55 Urine Bacteria Trace /HPF (NEGATIVE) 07/07/21 14:55 Ur Culture Indicated? No/not indicated 07/07/21 14:55 SARS-CoV-2 (PCR) Negative (NEGATIVE) 07/07/21 00:32 Plan (1) S/P laparoscopic cholecystectomy: Status: Acute (2) Acute cholecystitis: Status: Acute (3) JESUS (acute kidney injury): Status: Acute (4) Hypokalemia: Status: Acute (5) Dehydration: Status: Acute (6) Anemia: Status: Acute Qualifiers: Anemia type: unspecified type Qualified Code(s): D64.9 - Anemia, unspecified
--- NOTE | 2021-07-08 14:55 | DR.OPNOTE ---
OP NOTE Pre-Op Diagnosis: acute cholecystitis Post-Op Diagnosis: cholelithiasis and acute cholecystitis Procedure Date Date Of Procedure: 07/08/21 Procedure: PROCEDURE : LAPAROSCOPIC CHOLECYSTECTOMY NARRATIVE : The patient was taken to the operative suite and placed in a Supine position. General Endotracheal anesthesia induced and the entire abdomen prepped and draped in sterile fashion. Time out for the procedure obtained. Curvilinear 3cm incision made just below the umbilicus in the midline and dissection carried down to the midline fascia with holding sutures of a 0 vicryl placed on either side of the mid line. Fascia opened with # 15 blade knife and the peritoneum opened with Metzenbaum scissors . Bianca cannula placed and secured with holding sutures and the abdomen insufflated to 15 mm of mercury with carbon dioxide . Gallbladder was obscured by omentum. Two 5 mm trocars placed along the right costal margin and a 5 mm trocar placed in the epigastrium. Blunt dissection was used to remove the omentum from the gallbl adder. The gallbladder was thickened and inflammed. Dissection carried out in Calot's triangle finding both the cystic artery in the cystic duct. Both were clipped proximally and distally and then divided. This was the critical view of safety. Gallbladder than bluntly and sharpely dissected from the liver bed as it was inflamed. It was placed in a specimen bag and brought out through the inf raumbilical incision. Hemostasis obtained with electrocautery and Surgicel . A flat number 10 Dash Martinez drain was placed in the liver bed and brought out through the right lateral most 5 mm trocar site and secured with an interrupted silk suture to the skin . All trocars removed. The fascia of the initial incision closed with interrupted 0 Vicryl sutures All incisions then closed with interrupted 3-0 Vicryl subcutaneous sutures and the skin closed with steri strips . A total of 20 cc's of 0. 5% Marcaine was distributed between the four laparoscopic incisions. The patient was extubated and taken to the recovery room in good condition. Type of Anesthesia: General Anesthetic w/ETT Findings: cholelithiasis and acute cholecystitis Specimen/Pathology: gallbladder and contents Type of Fluids Used:: Lactated Ringers Total Amount of Fluid Infused:: 600 cc EBL: 200 cc Drains/Tubes Placed: Dash Martinez ( # 10) Complications:: none Needle/Sponge Count:: correct Disposition/Condition: Pt. tolerated procedure without difficulty. Extubated in the OR and taken to PACU in stable condition.
[2021-07-08] MEDS: APRESOLINE INJ 20 MG VIAL IVP PRN (15:13)
[2021-07-08] MEDS: ZESTRIL TAB 10 MG PO SCH (20:43)
[2021-07-08] MEDS: CIPRO TAB 500 MG PO SCH (20:43)
[2021-07-08] MEDS: RESTORIL CAP 15 MG PO SCH (20:43)
[2021-07-09] MEDS: LR 1,000 ML IV 1,000 ML IV SCH ×4 (02:08→20:21)
[2021-07-09] MEDS: DEMEROL INJ IVP PRN ×2 (03:44→18:04)
[2021-07-09 04:54] LABS: BASOPHILS % (AUTO) 0.3 % (0.2-1.0); EOSINOPHILS % (AUTO) 0.2 % (0.9-2.9); HEMOGLOBIN 8.2 g/dL (12.0-16.0); LYMPHOCYTES # (AUTO) 0.6 X10^3/uL (1.3-2.9); LYMPHOCYTES % (AUTO) 4.7 % (21.0-51.0); MEAN CORPUSCULAR HEMOGLOBIN 28.7 pg (27.0-34.0); MEAN CORPUSCULAR VOLUME 84.4 fL (80.0-100.0); MEAN PLATELET VOLUME 9.2 fL (7.4-11.0); MONOCYTES # (AUTO) 1.8 x10^3/uL (0.3-0.8); NEUTROPHILS # (AUTO) 10.3 x10^3/uL (2.2-4.8); NEUTROPHILS % (AUTO) 80.8 % (42.0-75.0); RED BLOOD COUNT 2.84 X10^6/uL (3.5-5.4); RED CELL DISTRIBUTION WIDTH 14.9 % (11.6-16.5); WHITE BLOOD COUNT 12.8 X10^3/uL (3.6-10.0)
[2021-07-09 05:03] LABS: ALANINE AMINOTRANSFERASE 77 Units/L (12-78); ALBUMIN 2.1 g/dL (3.4-5.0); ALKALINE PHOSPHATASE 124 Units/L (46-116); ASPARTATE AMINO TRANSFERASE 92 Units/L (15-37); BLOOD UREA NITROGEN 28 mg/dL (7-18); CHLORIDE 105 mmol/L (98-107); COR CA(FOR HYPOALB) 9.5 mg/dL (8.5-10.1); CREATININE 0.99 mg/dL (0.55-1.02); SODIUM 136 mmol/L (136-145); TOTAL PROTEIN 5.7 g/dL (6.4-8.2); eGFR NON BLACK RACES 57 (>60)
[2021-07-09] MEDS: PROTONIX TAB 40 MG PO SCH (08:59)
[2021-07-09] MEDS: PAXIL PO SCH (08:59)
[2021-07-09] MEDS: ZESTRIL TAB 10 MG PO SCH (08:59)
[2021-07-09] MEDS: CIPRO TAB 500 MG PO SCH ×2 (08:59→20:19)
[2021-07-09] MEDS: RESTORIL CAP 15 MG PO SCH (20:19)
--- NOTE | 2021-07-10 00:28 | NOTE.SOAP ---
Soap Note Note for Day of Date of Exam: 07/09/21 Subjective Data Subjective Data: POD # 1 after laparoscopic cholecystectomy. Doing better n. Taking diet . ERMA drain remains in place Objective Data Temperature: 98.3 F Pulse Rate: 105 Respiratory Rate: 20 Blood Pressure: 192/83 O2 Sat by Pulse Oximetry: 96 Objective Data: Abdomen is soft and benign. Hgb = 8.2, Na =136 , Cr=0/99, BUN= 28, WBC=12.8 ERMA with 40 cc out in last 24 hrs with serosanguanous fluid. Assessment Assessment: S/p laparoscopic cholecystectomy, Doing well. Dehydration much improved. ERMA drain in place. Plan Plan: Continue IVFs as per her PCP. Patient for discharge soon from my standpoint .
[2021-07-10] MEDS: DEMEROL INJ IVP PRN (00:43)
[2021-07-10] MEDS: LR 1,000 ML IV 1,000 ML IV SCH ×4 (02:07→19:52)
[2021-07-10 04:48] LABS: BASOPHILS # (AUTO) 0.1 X10^3/uL (0.0-0.1); BASOPHILS % (AUTO) 0.5 % (0.2-1.0); EOSINOPHILS # (AUTO) 0.3 x10^3/uL (0.0-0.2); EOSINOPHILS % (AUTO) 2.5 % (0.9-2.9); HEMATOCRIT 22.9 % (36.0-47.0); HEMOGLOBIN 7.6 g/dL (12.0-16.0); LYMPHOCYTES # (AUTO) 1.1 X10^3/uL (1.3-2.9); LYMPHOCYTES % (AUTO) 9.2 % (21.0-51.0); MEAN CORPUSCULAR HEMOGLOBIN 28.1 pg (27.0-34.0); MEAN CORPUSCULAR VOLUME 85.1 fL (80.0-100.0); MEAN PLATELET VOLUME 9.3 fL (7.4-11.0); MONOCYTES # (AUTO) 1.9 x10^3/uL (0.3-0.8); MONOCYTES % (AUTO) 15.5 % (0.0-13.0); NEUTROPHILS # (AUTO) 8.8 x10^3/uL (2.2-4.8); NEUTROPHILS % (AUTO) 72.3 % (42.0-75.0); RED BLOOD COUNT 2.69 X10^6/uL (3.5-5.4); RED CELL DISTRIBUTION WIDTH 14.8 % (11.6-16.5); WHITE BLOOD COUNT 12.1 X10^3/uL (3.6-10.0)
[2021-07-10 05:20] LABS: ALANINE AMINOTRANSFERASE 56 Units/L (12-78); ALBUMIN 1.9 g/dL (3.4-5.0); ALKALINE PHOSPHATASE 150 Units/L (46-116); ASPARTATE AMINO TRANSFERASE 49 Units/L (15-37); BLOOD UREA NITROGEN 21 mg/dL (7-18); CALCIUM 8.1 mg/dL (8.5-10.1); CARBON DIOXIDE 23.7 mmol/L (21-32); CHLORIDE 105 mmol/L (98-107); COR CA(FOR HYPOALB) 9.8 mg/dL (8.5-10.1); CREATININE 0.83 mg/dL (0.55-1.02); SODIUM 135 mmol/L (136-145); TOTAL PROTEIN 5.3 g/dL (6.4-8.2); eGFR NON BLACK RACES > 60 (>60)
[2021-07-10] MEDS: PAXIL PO SCH (08:00)
[2021-07-10] MEDS: CIPRO TAB 500 MG PO SCH ×2 (08:00→20:23)
[2021-07-10] MEDS: PROTONIX TAB 40 MG PO SCH (08:00)
[2021-07-10] MEDS: ZESTRIL TAB 10 MG PO SCH (08:00)
[2021-07-10] MEDS ORDERED: NORCO 5/325 MG TAB PO PRN (08:42)
[2021-07-10] MEDS ORDERED: ZESTRIL TAB 10 MG PO SCH (09:00)
[2021-07-10] MEDS: ALBUMIN HUMAN 25%- 100 ML 100 ML IV SCH (09:21)
[2021-07-10] MEDS ORDERED: ZESTRIL TAB 10 MG PO ONE (10:00)
[2021-07-10] MEDS: APRESOLINE INJ 20 MG VIAL IVP PRN (12:46)
[2021-07-10] MEDS ORDERED: CARDIZEM INJ 125 MG VIAL 125 MG in NS 100 ML IV 100 ML IV PRN (14:37)
[2021-07-10 15:35] LABS: CKMB % 2.9 % (<4); CREATINE KINASE MB 1.4 ng/mL (0-4.0)
[2021-07-10] MEDS ORDERED: LASIX IVP ONE (15:52)
[2021-07-10] MEDS ORDERED: KLONOPIN TAB 0.5 MG PO PRN (16:38)
[2021-07-10] MEDS ORDERED: NS 100 ML IV 100 ML ONE (16:44)
[2021-07-10] MEDS ORDERED: LANOXIN INJ IVP ONE (17:02)
--- NOTE | 2021-07-10 18:28 | CT ---
EXAM: CTA CHEST WITH INTRAVENOUS CONTRASTHISTORY: New onset atrial fibrillation. Elevated D-dimer. Rule out PE.TECHNIQUE: Spiral axial CT images are obtained through the chest with the administration of intravenous contrast. Coronal, sagittal and 3D MIP images are reformatted.DOSIMETRY: Total DLP 505.2 mGycm; CTDI 34.1 mGyCOMPARISON: None available.FINDINGS:CARDIOVASCULAR: There is no evidence for pulmonary embolic disease. The heart size and mediastinal vascular structures are within normal limits. There is no significant aortic or coronary atherosclerosis seen. No thoracic aortic aneurysm or dissection is noted.MEDIASTINUM AND SCOTT: There is a large, approximately 8.6 cm transverse by 5.4 cm AP by 8.3 cm CC, retrocardiac hiatal hernia containing collapsed proximal stomach. There is nonspecific shotty mediastinal lymphadenopathy. No mass lesion, emphysema, or abnormal fluid collection is seen.LUNGS: There are moderate to large bilateral pleural effusions (right greater than left) with compressive/consolidative bilateral posterior lower lobe and basilar atelectasis (right greater than left), with air bronchograms. There is no acute parenchymal infiltrate, lung nodule, pneumothorax or endobronchial obstructing lesion seen.CHEST WALL: There are no chest wall lesions seen. The visualized bony structures are within normal limits. No axillary lymphadenopathy is noted.UPPER ABDOMEN: Limited views through the upper abdomen demonstrate no gross acute abnormality.IMPRESSION:1. No evidence for pulmonary embolic disease.2. No evidence for aortic aneurysm or aortic dissection.3. Moderate to large bilateral pleural effusions (right greater than left) with compressive/consolidative bilateral posterior lower lobe and basilar atelectasis (right greater than left), with air bronchograms.4. No acute parenchymal infiltrate, endobronchial obstructing lesion, or pneumothorax seen.5. Large, approximately 8.6 cm transverse by 5.4 cm AP by 8.3 cm CC, retrocardiac hiatal hernia containing collapsed proximal stomach.6. Nonspecific shotty mediastinal lymphadenopathy.Electronically signed by: Hiue Blackburn (Jul 10, 2021 18:26:02)
--- NOTE | 2021-07-10 19:01 | PCM.PROG ---
Progress Note - Progress Note for Day of Date of Exam: 07/09/21 - Subjective Subjective: IS A 81 YEAR OLD PATIENT OF OURS. SHE WAS ADMITTED ON 07/07/21 FOR TREATMENT OF ACUTE RENAL FAILURE, DEHYDRATION, HYPONATREMIA, AND ACUTE CHOLECYSTITIS. , GENERAL SURGERY, WAS CONSULTED. PATIENT WAS TAKEN TO THE OR ON 07/08/21 FOR A LAPAROSCOPIC CHOLECYSTECTOMY. A ERMA DRAIN WAS LEFT IN PLACE FOLLOWING SURGERY. TODAY, SHE IS ALERT AND ORIENTED, LYING IN BED ON MORNING ROUNDS. SHE COMPLAINS OF DIFFUSE TENDERNESS TO ABDOMEN. SHE CONTINUES WITH GENERALIZED WEAKNESS, BUT DOES ADMIT TO SLIGHT IMPROVEMENT SINCE ADMISSION. SHE IS TOLERATING A LIQUID DIET WELL. ON EXAMINATION, HEART IS REGULAR IN RATE AND RHYTHM. BILATERAL LUNGS NOTED WITH DIMINISHED LUNG SOUNDS THROUGHOUT. AB DOMEN IS ROUND, SOFT, AND NOTED WITH DIFFUSE TENDERNESS. ERMA DRAIN REMAINS IN PLACE. NO UPPER OR LOWER EXTREMITY EDEMA NOTED. HER VITALS THIS MORNING ARE: 98.1-100-18-94% RA-177/70. LABS WERE OBTAINED. WBC 12.8, RBC 2.84, HGB 8.2, HCT 24.0, SODIUM 136, POTASSIUM 4.4, CHLORIDE 105, BUN 28, CREATININE 0.99, GLUCOSE 109, CALCIUM 8.0, AST 92, ALT 77, ALK PHOS 124, TOTAL PROTEIN 5.7, ALBUMIN 2.1. SHE IS CURRENTLY RECEIVING LR AT 125ML/HR, THE POTASSIUM AND MAGNESIUM PROTOCOLS, LISINOPRIL 10MG PO DAILY, RESTORIL 30MG PO HS, PAXIL 20MG PO DAILY, PROTONIX 40MG PO DAILY, APRESOLINE 10MG IV Q6H PRN, KLONOPIN 0.5MG PO DAILY, CIPRO 500MG PO DAILY. WE WILL INCREASE CIPRO TO 500MG PO BID. OTHERWISE, WE WILL CONTINUE WITH CURRENT PLAN OF CARE TODAY. WILL CONTINUE TO FOLLOW PATIENT. WE PLAN TO FOLLOW-UP WITH AM LABS AND CONTINUE TO MONITOR. TIME SPENT ON CLINICAL ASSESSMENT, REVIEWING LABS AND IMAGING, DECISION MAKING, AND DOCUMENTATION GREATER THAN 75 MINUTES. - Past Medical Family Social History Past Med/Fam/Surg Hx: No changes since H&P Allergies: Allergies codeine Allergy (Verified 02/02/17 07:32) - Review of Systems ROS: No change since H&P - Vital Signs and I&O's Vital Signs: Temperature 98.4 F Pulse Rate [Brachial] 98 Pulse Rate 113 Respiratory Rate 36 Blood Pressure [Right Arm] 182/78 Blood Pressure [Left Arm] 143/70 Blood Pressure 143/80 O2 Sat by Pulse Oximetry 100 Intake and Output: Intake & Output 07/08/21 07/09/21 07/10/21 07/11/21 11:59 11:59 11:59 11:59 Intake Total 5122 / 5122 4316 / 4316 4025 / 4025 35 35 Output Total 540 / 540 50 / 50 45 / 45 Balance 4582 / 4582 4266 / 4266 3980 / 3980 35 - Physical Exam Oriented: Normal Eyes: Normal Ear: Normal Nose: Normal Throat: Normal Respiratory: Generalized, Diminished Cardiovascular: Normal : Normal Auscultation: Bowel Sounds: Normal Palpation: Normal Tenderness: Diffuse, Mild, Other (ERMA drain in place, dressing intact) Skin: Normal Musculoskeletal: Normal Psychiatric: Normal Mood Description: Calm Affect: Normal Speech Pattern: Clear - Laboratory and Diagnostics Result Diagrams: 07/10/21 03:35 07/10/21 03:35 Labs: Laboratory WBC 12.1 X10^3/uL (3.6-10.0) H 07/10/21 03:35 RBC 2.69 X10^6/uL (3.5-5.4) L 07/10/21 03:35 Hgb 7.6 g/dL (12.0-16.0) L 07/10/21 03:35 Hct 22.9 % (36.0-47.0) L 07/10/21 03:35 MCV 85.1 fL (80.0-100.0) 07/10/21 03:35 MCH 28.1 pg (27.0-34.0) 07/10/21 03:35 MCHC 33.0 g/dL (33.0-35.0) 07/10/21 03:35 RDW 14.8 % (11.6-16.5) 07/10/21 03:35 Plt Count 305 X10^3/uL (150.0-450.0) 07/10/21 03:35 MPV 9.3 fL (7.4-11.0) 07/10/21 03:35 Neut % (Auto) 72.3 % (42.0-75.0) 07/10/21 03:35 Lymph % (Auto) 9.2 % (21.0-51.0) L 07/10/21 03:35 [place] % (Auto) 15.5 % (0.0-13.0) H 07/10/21 03:35 Eos % (Auto) 2.5 % (0.9-2.9) 07/10/21 03:35 Baso % (Auto) 0.5 % (0.2-1.0) 07/10/21 03:35 Neut # (Auto) 8.8 x10^3/uL (2.2-4.8) H 07/10/21 03:35 Lymph # (Auto) 1.1 X10^3/uL (1.3-2.9) L 07/10/21 03:35 [place] # (Auto) 1.9 x10^3/uL (0.3-0.8) H 07/10/21 03:35 Eos # (Auto) 0.3 x10^3/uL (0.0-0.2) H 07/10/21 03:35 Baso # (Auto) 0.1 X10^3/uL (0.0-0.1) 07/10/21 03:35 Absolute Nucleated RBC 0.2 /100WBC 07/10/21 03:35 D-Dimer 7.20 ug/ml (0.0-0.57) H* 07/10/21 14:35 Sodium 135 mmol/L (136-145) L 07/10/21 03:35 Corrected Sodium TNP 07/10/21 03:35 Potassium 4.1 mmol/L (3.5-5.1) 07/10/21 03:35 Chloride 105 mmol/L (98-107) 07/10/21 03:35 Carbon Dioxide 23.7 mmol/L (21-32) 07/10/21 03:35 BUN 21 mg/dL (7-18) H 07/10/21 03:35 Creatinine 0.83 mg/dL (0.55-1.02) 07/10/21 03:35 Est GFR (MDRD) Af Amer > 60 (>60) 07/10/21 03:35 Est GFR (MDRD) Non-Af > 60 (>60) 07/10/21 03:35 Glucose 104 mg/dL (65-99) H 07/10/21 03:35 Calcium 8.1 mg/dL (8.5-10.1) L 07/10/21 03:35 Corrected Calcium 9.8 mg/dL (8.5-10.1) 07/10/21 03:35 Total Bilirubin 0.50 mg/dL (0.2-1.0) 07/10/21 03:35 AST 49 Units/L (15-37) H 07/10/21 03:35 ALT 56 Units/L (12-78) 07/10/21 03:35 Alkaline Phosphatase 150 Units/L (46-116) H 07/10/21 03:35 Creatine Kinase 48 Units/L (26-192) 07/10/21 14:35 CK-MB (CK-2) 1.4 ng/mL (0-4.0) 07/10/21 14:35 CK/CKMB % Calc 2.9 % (<4) 07/10/21 14:35 Troponin I High Sens 108.3 ng/L (4.0-60.0) H* 07/10/21 14:35 B-Natriuretic Peptide 1600 pg/mL (0-79) H* 07/10/21 14:35 Total Protein 5.3 g/dL (6.4-8.2) L 07/10/21 03:35 Albumin 1.9 g/dL (3.4-5.0) L 07/10/21 03:35 Globulin 3.4 g/dL (2.5-4.5) 07/10/21 03:35 Albumin/Globulin Ratio 0.6 Ratio (1.1-2.1) L 07/10/21 03:35 Amylase 35 Units/L (25-115) 07/06/21 22:34 Lipase 52 Units/L (73-393) L 07/06/21 22:34 Specimen Type Clean catch urine 07/07/21 14:55 Urine Color Dark yellow (YELLOW) 07/07/21 14:55 Urine Appearance Slightly hazy (CLEAR) 07/07/21 14:55 Urine pH 5.0 (5.0 - 8.0) 07/07/21 14:55 Ur Specific [place] 1.020 (1.000-1.030) 07/07/21 14:55 Urine Protein 2+ (NEGATIVE) 07/07/21 14:55 Urine Glucose (UA) Negative (NEGATIVE) 07/07/21 14:55 Urine Ketones Negative (NEGATIVE) 07/07/21 14:55 Urine Blood 1+ (NEGATIVE) 07/07/21 14:55 Urine Nitrite Negative (NEGATIVE) 07/07/21 14:55 Urine Bilirubin Negative (NEGATIVE) 07/07/21 14:55 Urine Urobilinogen Normal (NORMAL) 07/07/21 14:55 Ur Leukocyte Esterase 1+ (NEGATIVE) 07/07/21 14:55 Urine RBC 3-5 /HPF (0-3) A 07/07/21 14:55 Urine WBC 0-2 /HPF (0-5) 07/07/21 14:55 Ur Squamous Epith Cells Many /HPF (NEGATIVE) 07/07/21 14:55 Amorphous Sediment Trace /HPF (NEGATIVE) 07/07/21 14:55 Urine Bacteria Trace /HPF (NEGATIVE) 07/07/21 14:55 Ur Culture Indicated? No/not indicated 07/07/21 14:55 SARS-CoV-2 (PCR) Negative (NEGATIVE) 07/07/21 00:32 Tissue Pathology To follow 07/08/21 09:55 Blood Type O POSITIVE 07/10/21 10:12 Antibody Screen Negative 07/10/21 10:12 Crossmatch See Detail 07/10/21 10:12 - Plan (1) S/P laparoscopic cholecystectomy Status: Acute Plan: ADMIT, LR AT 125ML/HR, THE POTASSIUM AND MAGNESIUM PROTOCOLS, LISINOPRIL 10MG PO DAILY, RESTORIL 30MG PO HS, PAXIL 20MG PO DAILY, PROTONIX 40MG PO DAILY, APRESOLINE 10MG IV Q6H PRN, KLONOPIN 0.5MG PO DAILY, CIPRO 500MG PO BID (2) JESUS (acute kidney injury) Status: Acute (3) Dehydration Status: Acute (4) Hyponatremia Status: Acute (5) Anemia Status: Acute Qualifiers: Anemia type: unspecified type (6) HTN (hypertension) Status: Chronic Qualifiers: Hypertension type: primary hypertension Qualified Code(s): I10 - Essential (primary) hypertension
--- NOTE | 2021-07-10 19:12 | PCM.PROG ---
Progress Note - Progress Note for Day of Date of Exam: 07/10/21 - Subjective Subjective: IS A 81 YEAR OLD PATIENT OF OURS. SHE WAS ADMITTED ON 07/07/21 FOR TREATMENT OF ACUTE RENAL FAILURE, DEHYDRATION, HYPONATREMIA, AND ACUTE CHOLECYSTITIS. SHE IS DAY 2 S/P LAPAROSCOPIC CHOLECYSTECTOMY. A ERMA DRAIN WAS LEFT IN PLACE FOLLOWING SURGERY. TODAY, SHE IS ALERT AND ORIENTED, LYING IN BED ON MORNING ROUNDS. SHE CONTINUES TO COMPLAINS OF DIFFUSE TENDERNESS TO ABDOMEN, BUT REPORTS IMPROVEMENT SINCE YESTERDAY. SHE IS TOLERATING A REGULAR DIET WELL. ON EXAMINATION, HEART IS REGULAR IN RATE AND RHYTHM. BILATERAL LUNGS NOTED WITH DIMINISHED LUNG SOUNDS THROUGHOUT. ABDOMEN IS ROUND, SOFT, AND NOTED WITH DIFFUSE TENDERNESS. ERMA DRAIN REMAINS IN PLACE. DRAINAGE FROM ERMA DRAIN HAS DECREASED. TRACE LOWER EXTREMITY EDEMA NOTED. HER VITALS THIS MORNING ARE: 98.7-102-22-92%RA-184/79. LABS WERE OBTAINED. WBC 12.1, RBC 2.69, HGB 7.6, HCT 22.9, SODIUM 135, POTASSIUM 4.1, CHLORIDE 105, BUN 21, CREATININE 0.83, GLUCOSE 104, CALCIUM 8.1, AST 49, ALT 56, ALK PHOS 150, TOTAL PROTEIN 5.3, ALBUMIN 1.9. SHE IS CURRENTLY RECEIVING LR AT 125ML/HR, THE POTASSIUM AND MAGNESIUM PROTOCOLS, LISINOPRIL 10MG PO DAILY, RESTORIL 30MG PO HS, PAXIL 20MG PO DAILY, PROTONIX 40MG PO DAILY, APRESOLINE 10MG IV Q6H PRN, KLONOPIN 0.5MG PO DAILY, CIPRO 500MG PO BID. TODAY, WE WILL ADD ALBUMIN 25% IV DAILY AND INCREASE LISINOPRIL OT 20MG PO DAILY. WE WILL TYPE AND SCREEN, CROSSMATCH, AND TRANSFUSE 2 UNITS OF PACKED RED BLOOD CELLS. OTHERWISE, WE WILL CONTINUE WITH CURRENT PLAN OF CARE TODAY. WILL CONTINUE TO FOLLOW PATIENT. WE PLAN TO FOLLOW-UP WITH AM LABS AND CONTINUE TO MONITOR. TIME SPENT ON CLINICAL ASSESSMENT, REVIEWING LABS AND IMAGING, DECISION MAKING, AND DOCUMENTATION GREATER THAN 45 MINUTES. - Past Medical Family Social History Past Med/Fam/Surg Hx: No changes since H&P Allergies: Allergies codeine Allergy (Verified 02/02/17 07:32) - Review of Systems ROS: No change since H&P - Vital Signs and I&O's Vital Signs: Temperature 98.4 F Pulse Rate [Brachial] 98 Pulse Rate 113 Respiratory Rate 36 Blood Pressure [Right Arm] 182/78 Blood Pressure [Left Arm] 143/70 Blood Pressure 143/80 O2 Sat by Pulse Oximetry 100 Intake and Output: Intake & Output 07/08/21 07/09/21 07/10/21 07/11/21 11:59 11:59 11:59 11:59 Intake Total 5122 / 5122 4316 / 4316 4025 / 4025 35 / 35 Output Total 540 / 540 50 / 50 45 / 45 Balance 4582 / 4582 4266 / 4266 3980 / 3980 35 - Physical Exam Oriented: Normal Eyes: Normal Ear: Normal Nose: Normal Throat: Normal Respiratory: Generalized, Diminished Cardiovascular: Normal : Normal Auscultation: Bowel Sounds: Normal Palpation: Normal Tenderness: Diffuse, Mild, Other (ERMA drain in place, dressing intact) Skin: Normal Musculoskeletal: Normal Psychiatric: Normal Mood Description: Calm Affect: Normal Speech Pattern: Clear - Laboratory and Diagnostics Result Diagrams: 07/10/21 03:35 07/10/21 03:35 Labs: Laboratory WBC 12.1 X10^3/uL (3.6-10.0) H 07/10/21 03:35 RBC 2.69 X10^6/uL (3.5-5.4) L 07/10/21 03:35 Hgb 7.6 g/dL (12.0-16.0) L 07/10/21 03:35 Hct 22.9 % (36.0-47.0) L 07/10/21 03:35 MCV 85.1 fL (80.0-100.0) 07/10/21 03:35 MCH 28.1 pg (27.0-34.0) 07/10/21 03:35 MCHC 33.0 g/dL (33.0-35.0) 07/10/21 03:35 RDW 14.8 % (11.6-16.5) 07/10/21 03:35 Plt Count 305 X10^3/uL (150.0-450.0) 07/10/21 03:35 MPV 9.3 fL (7.4-11.0) 07/10/21 03:35 Neut % (Auto) 72.3 % (42.0-75.0) 07/10/21 03:35 Lymph % (Auto) 9.2 % (21.0-51.0) L 07/10/21 03:35 [place] % (Auto) 15.5 % (0.0-13.0) H 07/10/21 03:35 Eos % (Auto) 2.5 % (0.9-2.9) 07/10/21 03:35 Baso % (Auto) 0.5 % (0.2-1.0) 07/10/21 03:35 Neut # (Auto) 8.8 x10^3/uL (2.2-4.8) H 07/10/21 03:35 Lymph # (Auto) 1.1 X10^3/uL (1.3-2.9) L 07/10/21 03:35 [place] # (Auto) 1.9 x10^3/uL (0.3-0.8) H 07/10/21 03:35 Eos # (Auto) 0.3 x10^3/uL (0.0-0.2) H 07/10/21 03:35 Baso # (Auto) 0.1 X10^3/uL (0.0-0.1) 07/10/21 03:35 Absolute Nucleated RBC 0.2 /100WBC 07/10/21 03:35 D-Dimer 7.20 ug/ml (0.0-0.57) H* 07/10/21 14:35 Sodium 135 mmol/L (136-145) L 07/10/21 03:35 Corrected Sodium TNP 07/10/21 03:35 Potassium 4.1 mmol/L (3.5-5.1) 07/10/21 03:35 Chloride 105 mmol/L (98-107) 07/10/21 03:35 Carbon Dioxide 23.7 mmol/L (21-32) 07/10/21 03:35 BUN 21 mg/dL (7-18) H 07/10/21 03:35 Creatinine 0.83 mg/dL (0.55-1.02) 07/10/21 03:35 Est GFR (MDRD) Af Amer > 60 (>60) 07/10/21 03:35 Est GFR (MDRD) Non-Af > 60 (>60) 07/10/21 03:35 Glucose 104 mg/dL (65-99) H 07/10/21 03:35 Calcium 8.1 mg/dL (8.5-10.1) L 07/10/21 03:35 Corrected Calcium 9.8 mg/dL (8.5-10.1) 07/10/21 03:35 Total Bilirubin 0.50 mg/dL (0.2-1.0) 07/10/21 03:35 AST 49 Units/L (15-37) H 07/10/21 03:35 ALT 56 Units/L (12-78) 07/10/21 03:35 Alkaline Phosphatase 150 Units/L (46-116) H 07/10/21 03:35 Creatine Kinase 48 Units/L (26-192) 07/10/21 14:35 CK-MB (CK-2) 1.4 ng/mL (0-4.0) 07/10/21 14:35 CK/CKMB % Calc 2.9 % (<4) 07/10/21 14:35 Troponin I High Sens 108.3 ng/L (4.0-60.0) H* 07/10/21 14:35 B-Natriuretic Peptide 1600 pg/mL (0-79) H* 07/10/21 14:35 Total Protein 5.3 g/dL (6.4-8.2) L 07/10/21 03:35 Albumin 1.9 g/dL (3.4-5.0) L 07/10/21 03:35 Globulin 3.4 g/dL (2.5-4.5) 07/10/21 03:35 Albumin/Globulin Ratio 0.6 Ratio (1.1-2.1) L 07/10/21 03:35 Amylase 35 Units/L (25-115) 07/06/21 22:34 Lipase 52 Units/L (73-393) L 07/06/21 22:34 Specimen Type Clean catch urine 07/07/21 14:55 Urine Color Dark yellow (YELLOW) 07/07/21 14:55 Urine Appearance Slightly hazy (CLEAR) 07/07/21 14:55 Urine pH 5.0 (5.0 - 8.0) 07/07/21 14:55 Ur Specific [place] 1.020 (1.000-1.030) 07/07/21 14:55 Urine Protein 2+ (NEGATIVE) 07/07/21 14:55 Urine Glucose (UA) Negative (NEGATIVE) 07/07/21 14:55 Urine Ketones Negative (NEGATIVE) 07/07/21 14:55 Urine Blood 1+ (NEGATIVE) 07/07/21 14:55 Urine Nitrite Negative (NEGATIVE) 07/07/21 14:55 Urine Bilirubin Negative (NEGATIVE) 07/07/21 14:55 Urine Urobilinogen Normal (NORMAL) 07/07/21 14:55 Ur Leukocyte Esterase 1+ (NEGATIVE) 07/07/21 14:55 Urine RBC 3-5 /HPF (0-3) A 07/07/21 14:55 Urine WBC 0-2 /HPF (0-5) 07/07/21 14:55 Ur Squamous Epith Cells Many /HPF (NEGATIVE) 07/07/21 14:55 Amorphous Sediment Trace /HPF (NEGATIVE) 07/07/21 14:55 Urine Bacteria Trace /HPF (NEGATIVE) 07/07/21 14:55 Ur Culture Indicated? No/not indicated 07/07/21 14:55 SARS-CoV-2 (PCR) Negative (NEGATIVE) 07/07/21 00:32 Tissue Pathology To follow 07/08/21 09:55 Blood Type O POSITIVE 07/10/21 10:12 Antibody Screen Negative 07/10/21 10:12 Crossmatch See Detail 07/10/21 10:12 - Plan (1) S/P laparoscopic cholecystectomy Status: Acute Plan: LR AT 125ML/HR, ALBUMIN 25% IV DAILY, THE POTASSIUM AND MAGNESIUM PROTOCO LS, LISINOPRIL 10MG PO DAILY, RESTORIL 30MG PO HS, PAXIL 20MG PO DAILY, PROTONIX 40MG PO DAILY, APRESOLINE 10MG IV Q6H PRN, KLONOPIN 0.5MG PO DAILY, CIPRO 500MG PO BID (2) JESUS (acute kidney injury) Status: Acute (3) Dehydration Status: Acute (4) Hyponatremia Status: Acute (5) Anemia Status: Acute Qualifiers: Anemia type: unspecified type Plan: TRANSFUSE 2 UNITS PRBC (6) HTN (hypertension) Status: Chronic Qualifiers: Hypertension type: primary hypertension Qualified Code(s): I10 - Essential (primary) hypertension
[2021-07-10] MEDS: RESTORIL CAP 15 MG PO SCH (20:23)
[2021-07-10] MEDS: LOPRESSOR INJ 5 MG AMP IVP PRN (20:24)
[2021-07-10 21:19] LABS: CKMB % 3.7 % (<4); CREATINE KINASE MB 1.9 ng/mL (0-4.0)
--- NOTE | 2021-07-10 23:46 | NOTE.SOAP ---
Soap Note Note for Day of Date of Exam: 07/10/21 Subjective Data Subjective Data: Postoperative day two after laparoscopic cholecystectomy for acute cholecystitis with cholelithiasis. Before surgery the patient was severely dehydrated with a creatinine of greater than 4. Creatinine now has returned to normal after aggressive intravenous hydration. Patient is taking a diet and the Dash Martinez drain has minimal output. Hemoglobin has dropped to 7. 6. Toay the patient began having tachycardia which appeared to be atrial defibrillation with elevated Troponin and elevated BNP. Patient transferred to the ICU. Is stable [place] amicably. No complaints of chest pain for shortness of breath. Objective Data Temperature: 98.1 F Pulse Rate: 112 Respiratory Rate: 31 Blood Pressure: 141/80 O2 Sat by Pulse Oximetry: 100 Objective Data: Incisions clean and dry. Minimal output from the Dash Martinez drain. Dash Martinez drain discontinued and dressing applied. Assessment Assessment: 1) Status post laparoscopic cholecystectomy for acute cholecystitis and cholelithiasis, doing well 2) new onset age of atrial fibrillation and elevated troponin and BNP probably consistent with aggressive rehydration secondary to her dehydration preoperatively. Most likely due to stretching after atrium Plan Plan: Drain has been discontinued. I will sign off. Dr. Coy will address her new onset atrial fibrillation and abnormal cardiac enzymes .
[2021-07-11] MEDS ORDERED: NS 100 ML IV 100 ML ONE (00:13)
[2021-07-11] MEDS: LOPRESSOR INJ 5 MG AMP IVP PRN (02:01)
[2021-07-11 02:49] LABS: BASOPHILS # (AUTO) 0.1 X10^3/uL (0.0-0.1); BASOPHILS % (AUTO) 0.7 % (0.2-1.0); EOSINOPHILS # (AUTO) 0.3 x10^3/uL (0.0-0.2); EOSINOPHILS % (AUTO) 2.4 % (0.9-2.9); HEMATOCRIT 21.6 % (36.0-47.0); HEMOGLOBIN 7.3 g/dL (12.0-16.0); LYMPHOCYTES # (AUTO) 1.3 X10^3/uL (1.3-2.9); MEAN CORPUSCULAR HEMOGLOBIN 28.6 pg (27.0-34.0); MEAN CORPUSCULAR HGB CONC 33.6 g/dL (33.0-35.0); MEAN CORPUSCULAR VOLUME 85.1 fL (80.0-100.0); MEAN PLATELET VOLUME 8.9 fL (7.4-11.0); MONOCYTES # (AUTO) 1.9 x10^3/uL (0.3-0.8); MONOCYTES % (AUTO) 14.4 % (0.0-13.0); NEUTROPHILS # (AUTO) 9.7 x10^3/uL (2.2-4.8); NEUTROPHILS % (AUTO) 72.5 % (42.0-75.0); RED BLOOD COUNT 2.54 X10^6/uL (3.5-5.4); WHITE BLOOD COUNT 13.3 X10^3/uL (3.6-10.0)
[2021-07-11 02:53] LABS: ALANINE AMINOTRANSFERASE 51 Units/L (12-78); ALBUMIN 2.4 g/dL (3.4-5.0); ALKALINE PHOSPHATASE 204 Units/L (46-116); ASPARTATE AMINO TRANSFERASE 43 Units/L (15-37); BLOOD UREA NITROGEN 18 mg/dL (7-18); CALCIUM 8.3 mg/dL (8.5-10.1); CARBON DIOXIDE 23.3 mmol/L (21-32); CHLORIDE 104 mmol/L (98-107); COR CA(FOR HYPOALB) 9.6 mg/dL (8.5-10.1); COR NA(FOR HYPERGLY) 136 mmol/L (136-145); SODIUM 136 mmol/L (136-145); TOTAL PROTEIN 5.6 g/dL (6.4-8.2); eGFR NON BLACK RACES > 60 (>60)
[2021-07-11 03:13] LABS: CKMB % 2.6 % (<4); CREATINE KINASE MB 1.3 ng/mL (0-4.0)
[2021-07-11 03:22] LABS: PLATELET MORPHOLOGY COMMENT NORMAL (NORMAL)
--- NOTE | 2021-07-11 04:04 | RAD ---
HISTORYTACHYCARDIA, INCREASED TROPONIN, SOBSTUDYCHEST, 1 VIEWCOMPARISONMay 2021 chest x-rayTECHNIQUEA single frontal view of the chest was obtained.FINDINGSThere are multiple EKG leads and wires seen overlying the patient. There is moderate cardiomegaly.There is a right perihilar alveolar infiltrate. There is a right lower lobe density which may represent an infiltrate and or atelectasis. Blunting of both costophrenic angles are seen, left worse than right consistent with small bilateral pleural effusions.. There is no pneumothorax. The osseous structures are intact.IMPRESSIONSmall bilateral pleural effusions, left greater than right, with either compressive atelectasis and/or infiltrate of the right lung base and right perihilar infiltrate. These are all new findings in comparison with the previous study.Electronically signed by: Laura Joshi (Jul 11, 2021 04:02:13)
[2021-07-11] MEDS: LR 1,000 ML IV 1,000 ML IV SCH (05:05)
--- NOTE | 2021-07-11 07:04 | RAD ---
HISTORYFollow-up congestive heart failure, shortness of breathSTUDYChest AP [id number]/01/2022 chest x-ray and CTA chestFINDINGSThe heart is mildly enlarged. No congestive heart failure is noted. Haziness in the lung bases likely due to the patient's known bilateral pleural effusions which are likely unchanged. No definite acute alveolar infiltrates are identified. Bony thorax is unremarkable.IMPRESSIONContinued cardiomegaly without definite congestive heart failureHaziness at the lung bases likely due to the patient's known pleural effusions which are likely unchanged and better demonstrated on the CTA chestNo definite acute infiltratesElectronically signed by: HUSAM GRANDE (Jul 11, 2021 07:02:33)
[2021-07-11] MEDS ORDERED: ZESTRIL TAB 20 MG ONE (08:17)
[2021-07-11] MEDS: ALBUMIN HUMAN 25%- 100 ML 100 ML IV SCH (08:19)
[2021-07-11] MEDS: CIPRO TAB 500 MG PO SCH (08:20)
[2021-07-11] MEDS: PAXIL PO SCH ×2 (08:21→09:12)
[2021-07-11] MEDS: PROTONIX TAB 40 MG PO SCH (08:21)
[2021-07-11] MEDS: LANOXIN INJ IVP SCH (08:57)
[2021-07-11] MEDS ORDERED: ZESTRIL TAB 10 MG PO SCH (09:00)
[2021-07-11] MEDS ORDERED: ZESTRIL TAB 20 MG PO SCH (09:00)
[2021-07-11] MEDS ORDERED: TOPROL XL PO SCH (09:00)
[2021-07-11] MEDS: ESTRACE PO SCH (09:12)
[2021-07-11] MEDS: LASIX IVP SCH ×2 (09:13→21:15)
[2021-07-11 09:32] LABS: CREATINE KINASE MB 1.2 ng/mL (0-4.0)
[2021-07-11 10:53] LABS: HEMATOCRIT 20.8 % (36.0-47.0)
[2021-07-11 11:50] LABS: BILIRUBIN,URINE NEGATIVE (NEGATIVE); BLOOD/HEMOGLOBIN,URINE NEGATIVE (NEGATIVE); GLUCOSE, URINE NEGATIVE (NEGATIVE); KETONES,URINE NEGATIVE (NEGATIVE); LEUKOCYTE ESTERASE ,URINE NEGATIVE (NEGATIVE); NITRITES,URINE NEGATIVE (NEGATIVE); PROTEIN,URINE 1+ (NEGATIVE); UROBILINOGEN,URINE NORMAL (NORMAL)
[2021-07-11] MEDS: ZOSYN VIAL 3.375 GRAMS 3.375 G in NS 100 ML IV 100 ML IV SCH ×3 (12:00→22:18)
[2021-07-11 12:05] LABS: APPEARANCE,URINE CLEAR (CLEAR); BACTERIA,URINE NEGATIVE /HPF (NEGATIVE); COLOR,URINE YELLOW (YELLOW); RBC,URINE 0-2 /HPF (0-3); SQUAMOUS EPITHELIAL CELL,UR RARE /HPF (NEGATIVE)
[2021-07-11] MEDS: APRESOLINE INJ 20 MG VIAL IVP PRN ×2 (13:15→22:42)
[2021-07-11] MEDS ORDERED: TYLENOL 325 MG TAB PO ONE ×2 (14:22→14:31)
[2021-07-11] MEDS ORDERED: BENADRYL INJ 50 MG VIAL IVP ONE (14:22)
[2021-07-11] MEDS ORDERED: BENADRYL INJ 50 MG VIAL ONE (14:31)
[2021-07-11] MEDS ORDERED: TOPROL XL PO ONE ×2 (14:40→14:48)
[2021-07-11] MEDS ORDERED: CARDIZEM INJ 125 MG VIAL 125 MG in NS 100 ML IV 100 ML IV PRN (15:21)
[2021-07-11] MEDS ORDERED: CARDIZEM CD 120 MG 24-HR PO ONE (16:21)
[2021-07-11] MEDS: CARDIZEM CD 120 MG 24-HR PO SCH (16:22)
[2021-07-11] MEDS ORDERED: NS 250 ML IV 250 ML IV ONE (16:40)
[2021-07-11 21:39] LABS: HEMATOCRIT 25.7 % (36.0-47.0); HEMOGLOBIN 8.7 g/dL (12.0-16.0)
[2021-07-11] MEDS ORDERED: NS 500 ML IV 500 ML IV ONE (21:50)
[2021-07-11] MEDS: RESTORIL CAP 15 MG PO SCH (22:00)
[2021-07-12 05:06] LABS: BASOPHILS # (AUTO) 0.1 X10^3/uL (0.0-0.1); BASOPHILS % (AUTO) 0.7 % (0.2-1.0); EOSINOPHILS # (AUTO) 0.6 x10^3/uL (0.0-0.2); EOSINOPHILS % (AUTO) 3.6 % (0.9-2.9); HEMATOCRIT 25.7 % (36.0-47.0); HEMOGLOBIN 8.6 g/dL (12.0-16.0); LYMPHOCYTES # (AUTO) 1.4 X10^3/uL (1.3-2.9); LYMPHOCYTES % (AUTO) 8.3 % (21.0-51.0); MEAN CORPUSCULAR HEMOGLOBIN 28.4 pg (27.0-34.0); MEAN CORPUSCULAR HGB CONC 33.4 g/dL (33.0-35.0); MEAN CORPUSCULAR VOLUME 84.9 fL (80.0-100.0); MEAN PLATELET VOLUME 8.8 fL (7.4-11.0); MONOCYTES # (AUTO) 1.9 x10^3/uL (0.3-0.8); MONOCYTES % (AUTO) 11.5 % (0.0-13.0); NEUTROPHILS # (AUTO) 12.4 x10^3/uL (2.2-4.8); NEUTROPHILS % (AUTO) 75.9 % (42.0-75.0); RED BLOOD COUNT 3.03 X10^6/uL (3.5-5.4); RED CELL DISTRIBUTION WIDTH 14.6 % (11.6-16.5); WHITE BLOOD COUNT 16.3 X10^3/uL (3.6-10.0)
[2021-07-12 05:29] LABS: ALANINE AMINOTRANSFERASE 49 Units/L (12-78); ALBUMIN 2.6 g/dL (3.4-5.0); ALKALINE PHOSPHATASE 195 Units/L (46-116); ASPARTATE AMINO TRANSFERASE 39 Units/L (15-37); BLOOD UREA NITROGEN 18 mg/dL (7-18); CALCIUM 8.4 mg/dL (8.5-10.1); CARBON DIOXIDE 24.5 mmol/L (21-32); CHLORIDE 103 mmol/L (98-107); CKMB % 1.5 % (<4); COR CA(FOR HYPOALB) 9.5 mg/dL (8.5-10.1); CREATINE KINASE 91 Units/L (26-192); CREATINE KINASE MB 1.4 ng/mL (0-4.0); SODIUM 136 mmol/L (136-145); TOTAL PROTEIN 5.8 g/dL (6.4-8.2); eGFR NON BLACK RACES > 60 (>60)
[2021-07-12 05:46] LABS: PLATELET MORPHOLOGY COMMENT NORMAL (NORMAL)
[2021-07-12 05:47] LABS: HYPOCHROMASIA SLIGHT; TARGET CELLS PRESENT
--- NOTE | 2021-07-12 06:02 | RAD ---
HISTORYShortness of breathSTUDYChest AP [id number]/02/2022 chest x-ray, 07/10/2021 CTA chestFINDINGSThe heart remains enlarged. The corey are normal. Upper lung patrick appear clear. Haziness in the right lung base is likely due to the patient's known right pleural effusion and is unchanged. Increased density retrocardiac area left lower lobe obscuring left hemidiaphragm is likely due to the patient's known left pleural effusion. No pneumothorax is identified. Bony thorax is unremarkable.IMPRESSIONNo significant change from the prior examinationElectronically signed by: HUSAM GRANDE (Jul 12, 2021 06:01:12)
[2021-07-12] MEDS: ZOSYN VIAL 3.375 GRAMS 3.375 G in NS 100 ML IV 100 ML IV SCH ×3 (06:07→21:24)
[2021-07-12] MEDS ORDERED: ZESTRIL TAB 20 MG ONE ×2 (08:46→20:07)
[2021-07-12] MEDS ORDERED: TOPROL XL PO SCH (09:00)
[2021-07-12] MEDS: ALBUMIN HUMAN 25%- 100 ML 100 ML IV SCH (09:47)
[2021-07-12] MEDS: ZESTRIL TAB 20 MG PO SCH ×2 (09:47→20:29)
[2021-07-12] MEDS: PROTONIX TAB 40 MG PO SCH (09:48)
[2021-07-12] MEDS: TRICOR TAB 145 MG PO SCH (09:48)
[2021-07-12] MEDS: PAXIL PO SCH (09:48)
[2021-07-12] MEDS: ESTRACE PO SCH (09:49)
[2021-07-12] MEDS: CIPRO TAB 500 MG PO SCH ×2 (09:49→20:28)
[2021-07-12] MEDS: LANOXIN INJ IVP SCH (09:50)
[2021-07-12] MEDS: LASIX IVP PRN (09:57)
[2021-07-12] MEDS: CARDIZEM CD 120 MG 24-HR PO SCH (09:58)
[2021-07-12] MEDS: TOPROL XL PO SCH (09:58)
[2021-07-12] MEDS: K-DUR TAB 20 MEQ PO PRN (09:59)
[2021-07-12] MEDS: APRESOLINE INJ 20 MG VIAL IVP PRN ×2 (12:05→21:36)
--- NOTE | 2021-07-12 13:43 | PCM.PROG ---
Progress Note - Progress Note for Day of Date of Exam: 07/11/21 - Subjective Subjective: IS A 81 YEAR OLD PATIENT OF OURS. SHE IS CURRENTLY INPATIENT STATUS FOR TREATMENT OF ACUTE RENAL FAILURE, DEHYDRATION, HYPONATREMIA, AND ACUTE CHOLECYSTITIS. SHE IS DAY 3 S/P LAPAROSCOPIC CHOLECYSTECTOMY. A ERMA DRAIN WAS LEFT IN PLACE FOLLOWING SURGERY. SHE WAS TRANSFERRED TO THE INTENSIVE CARE UNIT YESTERDAY DUE TO NEW ONSET ATRIAL FIBRILLATION. SHE WAS PLACED ON A CARDIZEM DRIP. SHE HAS BEEN HYPERTENSIVE THROUGHOUT THE NIGHT. TODAY, SHE IS ALERT AND ORIENTED, LYING IN BED ON MORNING ROUNDS. SHE CONTINUES TO COMPLAIN OF DIFFUSE TENDERNESS TO ABDOMEN, BUT REPORTS IMPROVEMENT SINCE YESTERDAY. SHE REPORTS SHORTNESS OF BREATH AND WEAKNESS. ON EXAMINATION, SHE IS TACHYCARDIC WITH HR 110-130. BILATERAL LUNGS NOTED WITH DIMINISHED LUNG SOUNDS THROUGHOUT. ABDOMEN IS ROUND, SOFT, AND NOTED WITH DIFFUSE TENDERNESS. ERMA DRAIN HAS BEEN REMOVED. TRACE LOWER EXTREMITY EDEMA NOTED. HER VITALS THIS MORNING ARE: 98.7-118-28-97%-203/71. LABS WERE OBTAINED. WBC 13.3, RBC 2.54, HGB 7.3, HCT 21.6, SODIUM 136, POTASSIUM 4.3, CHLORIDE 104, BUN 18, CREATININE 0.90, GLUCOSE 117, CALCIUM 8.3, AST 43, ALT 51, ALK PHOS 204, CRP 161.50, BNP 1560, TOTAL PROTEIN 5.6, ALBUMIN 2.4. HER TROPONINS HAVE BEEN ELEVATED, PEAKING AT 108.3, THEY HAVE DECREASED SINCE YESTERDAY. A CHEST CTA WAS OBTAINED YESTERDAY AND REVEALED: 1. No evidence for pulmonary embolic disease. 2. No evidence for aortic aneurysm or aortic dissection. 3. Moderate to large bilateral pleural effusions (right greater than left) with compressive/consolidative bilateral posterior lower lobe and basilar atelectasis (right greater than left), with air bronchograms. 4. No acute parenchymal infiltrate, endobronchial obstructing lesion, or pneumothorax seen. 5. Large, approximately 8.6 cm transverse by 5.4 cm AP by 8.3 cm CC, retrocardiac hiatal hernia containing collapsed proximal stomach. 6. Nonspecific shotty mediastinal lymphadenopathy. A CHEST XRAY WAS OBTAINED AND REVEALED: Continued cardiomegaly without definite congestive heart failure. Haziness at the lung bases likely due to the patient's known pleural effusions which are likely unchanged and better demonstrated on the CTA chest. No definite acute infiltrates. SHE IS CURRENTLY RECEIVING LR AT 125ML/HR, ALBUMIN 25% IV DAILY, THE POTASSIUM AND MAGNESIUM PROTOCOLS, LISINOPRIL 20MG PO DAILY, RESTORIL 30MG PO HS, PAXIL 20MG PO DAILY, PROTONIX 40MG PO DAILY, APRESOLINE 10MG IV Q6H PRN, KLONOPIN 0.5MG PO DAILY, CIPRO 500MG PO BID. WE WILL TRANSFUSE PRBC TODAY. WE WILL ADD ZOSYN 3.375G IV TID, CARDIZEM 120MG PO DAILY, METOPROLOL 25MG PO DAILY, LASIX 40MG IV Q12H X 2 DOSES. WE WILL DISCONTINUE HER IV FLUIDS. WE WILL INSERT A POOL CATHETER TODAY. WE PLAN TO FOLLOW-UP WITH AM LABS AND CONTINUE TO MONITOR. TIME SPENT ON CLINICAL ASSESSMENT, REVIEWING LABS AND IMAGING, DECISION MAKING, AND DOCUMENTATION GREATER THAN 45 MINUTES. - Past Medical Family Social History Past Med/Fam/Surg Hx: No changes since H&P Allergies: Allergies codeine Allergy (Verified 02/02/17 07:32) - Review of Systems ROS: No change since H&P - Vital Signs and I&O's Vital Signs: Temperature 98.2 F Pulse Rate [Brachial] 98 Pulse Rate 64 Respiratory Rate 21 Blood Pressure [Right Arm] 182/78 Blood Pressure [Left Arm] 143/70 Blood Pressure 182/76 O2 Sat by Pulse Oximetry 100 Intake and Output: Intake & Output 07/10/21 07/11/21 07/12/21 07/13/21 11:59 11:59 11:59 11:59 Intake Total 4025 / 4025 1377 / 1377 1890 / 1890 Output Total 45 / 45 2425 / 2425 Balance 3980 / 3980 1377 / 1377 -535 / -535 - Physical Exam Oriented: Normal Eyes: Normal Ear: Normal Nose: Normal Throat: Normal Respiratory: Generalized, Diminished Cardiovascular: Tachycardia, Irregular (A-FIB) : Normal Auscultation: Bowel Sounds: Normal Palpation: Normal Tenderness: Diffuse, Mild Skin: Normal Musculoskeletal: Normal Psychiatric: Normal Mood Description: Calm Affect: Normal Speech Pattern: Clear - Laboratory and Diagnostics Result Diagrams: 07/12/21 04:37 07/12/21 04:37 Labs: Laboratory WBC 16.3 X10^3/uL (3.6-10.0) H 07/12/21 04:37 RBC 3.03 X10^6/uL (3.5-5.4) L 07/12/21 04:37 Hgb 8.6 g/dL (12.0-16.0) L 07/12/21 04:37 Hct 25.7 % (36.0-47.0) L 07/12/21 04:37 MCV 84.9 fL (80.0-100.0) 07/12/21 04:37 MCH 28.4 pg (27.0-34.0) 07/12/21 04:37 MCHC 33.4 g/dL (33.0-35.0) 07/12/21 04:37 RDW 14.6 % (11.6-16.5) 07/12/21 04:37 Plt Count 431 X10^3/uL (150.0-450.0) 07/12/21 04:37 Plt Count Comment Adequate (ADEQUATE) 07/12/21 04:37 MPV 8.8 fL (7.4-11.0) 07/12/21 04:37 Neut % (Auto) 75.9 % (42.0-75.0) H 07/12/21 04:37 Lymph % (Auto) 8.3 % (21.0-51.0) L 07/12/21 04:37 [place] % (Auto) 11.5 % (0.0-13.0) 07/12/21 04:37 Eos % (Auto) 3.6 % (0.9-2.9) H 07/12/21 04:37 Baso % (Auto) 0.7 % (0.2-1.0) 07/12/21 04:37 Neut # (Auto) 12.4 x10^3/uL (2.2-4.8) H 07/12/21 04:37 Lymph # (Auto) 1.4 X10^3/uL (1.3-2.9) 07/12/21 04:37 [place] # (Auto) 1.9 x10^3/uL (0.3-0.8) H 07/12/21 04:37 Eos # (Auto) 0.6 x10^3/uL (0.0-0.2) H 07/12/21 04:37 Baso # (Auto) 0.1 X10^3/uL (0.0-0.1) 07/12/21 04:37 Absolute Nucleated RBC 0.5 /100WBC 07/12/21 04:37 Total Counted 100 07/12/21 04:37 Neutrophils % (Manual) 75 % (39-76) 07/12/21 04:37 Lymphocytes % (Manual) 9 % (13-43) L 07/12/21 04:37 Monocytes % (Manual) 12 % (4-9) H 07/12/21 04:37 Eosinophils % (Manual) 4 % (0-6) 07/12/21 04:37 Plt Morphology Comment Normal (NORMAL) 07/12/21 04:37 RBC Morphology Abnormal (NORMAL) A 07/12/21 04:37 Hypochromasia Slight A 07/12/21 04:37 Target Cells Present 07/12/21 04:37 D-Dimer 7.20 ug/ml (0.0-0.57) H* 07/10/21 14:35 Sodium 136 mmol/L (136-145) 07/12/21 04:37 Corrected Sodium TNP 07/12/21 04:37 Potassium 3.6 mmol/L (3.5-5.1) 07/12/21 04:37 Chloride 103 mmol/L (98-107) 07/12/21 04:37 Carbon Dioxide 24.5 mmol/L (21-32) 07/12/21 04:37 BUN 18 mg/dL (7-18) 07/12/21 04:37 Creatinine 0.90 mg/dL (0.55-1.02) 07/12/21 04:37 Est GFR (MDRD) Af Amer > 60 (>60) 07/12/21 04:37 Est GFR (MDRD) Non-Af > 60 (>60) 07/12/21 04:37 Glucose 107 mg/dL (65-99) H 07/12/21 04:37 Calcium 8.4 mg/dL (8.5-10.1) L 07/12/21 04:37 Corrected Calcium 9.5 mg/dL (8.5-10.1) 07/12/21 04:37 Total Bilirubin 0.60 mg/dL (0.2-1.0) 07/12/21 04:37 AST 39 Units/L (15-37) H 07/12/21 04:37 ALT 49 Units/L (12-78) 07/12/21 04:37 Alkaline Phosphatase 195 Units/L (46-116) H 07/12/21 04:37 Creatine Kinase 91 Units/L (26-192) 07/12/21 04:37 CK-MB (CK-2) 1.4 ng/mL (0-4.0) 07/12/21 04:37 CK/CKMB % Calc 1.5 % (<4) 07/12/21 04:37 Troponin I High Sens 65.0 ng/L (4.0-60.0) H* 07/12/21 04:37 C-Reactive Protein 131.60 mg/L (0-3.0) H 07/12/21 04:37 B-Natriuretic Peptide 2020 pg/mL (0-79) H* 07/12/21 04:37 Total Protein 5.8 g/dL (6.4-8.2) L 07/12/21 04:37 Albumin 2.6 g/dL (3.4-5.0) L 07/12/21 04:37 Globulin 3.2 g/dL (2.5-4.5) 07/12/21 04:37 Albumin/Globulin Ratio 0.8 Ratio (1.1-2.1) L 07/12/21 04:37 Amylase 35 Units/L (25-115) 07/06/21 22:34 Lipase 52 Units/L (73-393) L 07/06/21 22:34 Specimen Type Catherized urine 07/11/21 11:25 Urine Color Yellow (YELLOW) 07/11/21 11:25 Urine Appearance Clear (CLEAR) 07/11/21 11:25 Urine pH 6.0 (5.0 - 8.0) 07/11/21 11:25 Ur Specific [place] 1.015 (1.000-1.030) 07/11/21 11:25 Urine Protein 1+ (NEGATIVE) 07/11/21 11:25 Urine Glucose (UA) Negative (NEGATIVE) 07/11/21 11:25 Urine Ketones Negative (NEGATIVE) 07/11/21 11:25 Urine Blood Negative (NEGATIVE) 07/11/21 11:25 Urine Nitrite Negative (NEGATIVE) 07/11/21 11:25 Urine Bilirubin Negative (NEGATIVE) 07/11/21 11:25 Urine Urobilinogen Normal (NORMAL) 07/11/21 11:25 Ur Leukocyte Esterase Negative (NEGATIVE) 07/11/21 11:25 Urine RBC 0-2 /HPF (0-3) 07/11/21 11:25 Urine WBC 0-2 /HPF (0-5) 07/11/21 11:25 Ur Squamous Epith Cells Rare /HPF (NEGATIVE) 07/11/21 11:25 Amorphous Sediment Trace /HPF (NEGATIVE) 07/07/21 14:55 Urine Bacteria Negative /HPF (NEGATIVE) 07/11/21 11:25 Ur Culture Indicated? No/not indicated 07/11/21 11:25 SARS-CoV-2 (PCR) Negative (NEGATIVE) 07/07/21 00:32 Tissue Pathology To follow 07/08/21 09:55 Blood Type O POSITIVE 07/10/21 10:12 Antibody Screen Negative 07/10/21 10:12 Crossmatch See Detail 07/10/21 10:12 - Plan (1) S/P laparoscopic cholecystectomy Status: Acute Plan: ALBUMIN 25% IV DAILY, THE POTASSIUM AND MAGNESIUM PROTOCOLS, METOPROLOL 25MG PO DAILY, CARDIZEM 120MG PO DAILY, LISINOPRIL 20MG PO DAILY, RESTORIL 30MG PO HS, PAXIL 20MG PO DAILY, PROTONIX 40MG PO DAILY, APRESOLINE 10MG IV Q6H PRN, KLONOPIN 0.5MG PO DAILY, CIPRO 500MG PO BID (2) New onset atrial fibrillation Status: Acute (3) Shortness of breath Status: Acute (4) JESUS (acute kidney injury) Status: Acute (5) Dehydration Status: Acute (6) Hyponatremia Status: Acute (7) Anemia Status: Acute Qualifiers: Anemia type: unspecified type Plan: TRANSFUSE 2 UNITS PRBC (8) HTN (hypertension) Status: Chronic Qualifiers: Hypertension type: primary hypertension Qualified Code(s): I10 - Essential (primary) hypertension
[2021-07-12] MEDS: RESTORIL CAP 15 MG PO SCH (20:29)
[2021-07-13] MEDS: LOPRESSOR INJ 5 MG AMP IVP PRN (03:59)
[2021-07-13 05:54] LABS: BASOPHILS # (AUTO) 0.1 X10^3/uL (0.0-0.1); BASOPHILS % (AUTO) 0.6 % (0.2-1.0); EOSINOPHILS # (AUTO) 0.5 x10^3/uL (0.0-0.2); EOSINOPHILS % (AUTO) 2.8 % (0.9-2.9); HEMATOCRIT 26.5 % (36.0-47.0); HEMOGLOBIN 8.9 g/dL (12.0-16.0); LYMPHOCYTES # (AUTO) 1.2 X10^3/uL (1.3-2.9); LYMPHOCYTES % (AUTO) 6.7 % (21.0-51.0); MEAN CORPUSCULAR HEMOGLOBIN 28.7 pg (27.0-34.0); MEAN CORPUSCULAR HGB CONC 33.7 g/dL (33.0-35.0); MEAN CORPUSCULAR VOLUME 85.2 fL (80.0-100.0); MEAN PLATELET VOLUME 9.1 fL (7.4-11.0); MONOCYTES # (AUTO) 1.9 x10^3/uL (0.3-0.8); MONOCYTES % (AUTO) 11.1 % (0.0-13.0); NEUTROPHILS # (AUTO) 13.7 x10^3/uL (2.2-4.8); NEUTROPHILS % (AUTO) 78.8 % (42.0-75.0); RED BLOOD COUNT 3.11 X10^6/uL (3.5-5.4); WHITE BLOOD COUNT 17.4 X10^3/uL (3.6-10.0)
[2021-07-13 06:03] LABS: ALANINE AMINOTRANSFERASE 37 Units/L (12-78); ALBUMIN 2.9 g/dL (3.4-5.0); ALKALINE PHOSPHATASE 223 Units/L (46-116); ASPARTATE AMINO TRANSFERASE 33 Units/L (15-37); BLOOD UREA NITROGEN 19 mg/dL (7-18); CALCIUM 8.4 mg/dL (8.5-10.1); CARBON DIOXIDE 29.2 mmol/L (21-32); CHLORIDE 104 mmol/L (98-107); COR CA(FOR HYPOALB) 9.3 mg/dL (8.5-10.1); CREATININE 0.92 mg/dL (0.55-1.02); SODIUM 141 mmol/L (136-145); eGFR NON BLACK RACES > 60 (>60)
[2021-07-13] MEDS: ZOSYN VIAL 3.375 GRAMS 3.375 G in NS 100 ML IV 100 ML IV SCH (06:13)
[2021-07-13 06:49] LABS: BAND NEUTROPHILS % 5 % (0-10); PLATELET MORPHOLOGY COMMENT NORMAL (NORMAL)
--- NOTE | 2021-07-13 07:14 | RAD ---
CHEST, 1 VIEWHISTORY: shortness of breathStudy: Single view of the chest.Comparison:07/12/2021Findings:The cardiomediastinal silhouette is normal. No change in the appearance of bilateral insterstitial and airspace opacities. No change in small bilateral effusions. No change in positioning of cardiopulmonary support devices. Osseous structures demonstrate no acute abnormality.IMPRESSION:1. No change from prior.Electronically signed by: ALIDA BANG (Jul 13, 2021 07:13:22)
[2021-07-13] MEDS ORDERED: NS 100 ML IV 100 ML with VENOFER 400 MG IV NR ×2 (08:18)
[2021-07-13] MEDS ORDERED: PROCRIT or EPOGEN VIAL 10,000 UNITS SC ONE (08:18)
[2021-07-13] MEDS ORDERED: TYGACIL 50 MG VIAL 100 MG in NS 100 ML IV 100 ML IV ONE (08:20)
[2021-07-13] MEDS ORDERED: ZESTRIL TAB 20 MG ONE ×2 (09:09→20:03)
[2021-07-13] MEDS: ALBUMIN HUMAN 25%- 100 ML 100 ML IV SCH (09:15)
[2021-07-13] MEDS: CARDIZEM CD 120 MG 24-HR PO SCH (09:17)
[2021-07-13] MEDS: ESTRACE PO SCH (09:17)
[2021-07-13] MEDS: TOPROL XL PO SCH (09:18)
[2021-07-13] MEDS: ELIQUIS PO SCH ×2 (09:18→20:07)
[2021-07-13] MEDS: PAXIL PO SCH (09:18)
[2021-07-13] MEDS: APRESOLINE TAB 25 MG PO SCH ×3 (09:19→21:07)
[2021-07-13] MEDS: TRICOR TAB 145 MG PO SCH (09:19)
[2021-07-13] MEDS: PROTONIX TAB 40 MG PO SCH (09:19)
[2021-07-13] MEDS: ZESTRIL TAB 20 MG PO SCH ×2 (09:19→20:10)
[2021-07-13] MEDS: LANOXIN INJ IVP SCH (11:00)
[2021-07-13] MEDS ORDERED: APRESOLINE TAB 25 MG PO ONE (14:10)
[2021-07-13] MEDS: MAGNESIUM SULFATE 1 GRAM/100 mL PREMIX 1 G/100 ML BAG IV PRN ×2 (14:18→15:29)
[2021-07-13] MEDS ORDERED: NS 500 ML IV 500 ML IV PRN (15:29)
[2021-07-13] MEDS: ZOFRAN TAB 4 MG SL PRN (19:32)
[2021-07-13] MEDS: RESTORIL CAP 15 MG PO SCH (20:07)
[2021-07-13] MEDS: TYGACIL 50 MG VIAL 50 MG in NS 100 ML IV 100 ML IV SCH (20:10)
[2021-07-13] MEDS: LASIX IVP PRN (20:12)
[2021-07-13 21:43] LABS: HEMATOCRIT 33.7 % (36.0-47.0); HEMOGLOBIN 11.1 g/dL (12.0-16.0)
[2021-07-13] MEDS ORDERED: CATAPRES TAB 0.2 MG PO ONE (22:07)
[2021-07-14 05:17] LABS: BASOPHILS # (AUTO) 0.1 X10^3/uL (0.0-0.1); BASOPHILS % (AUTO) 0.3 % (0.2-1.0); EOSINOPHILS # (AUTO) 0.1 x10^3/uL (0.0-0.2); EOSINOPHILS % (AUTO) 0.5 % (0.9-2.9); HEMATOCRIT 31.4 % (36.0-47.0); HEMOGLOBIN 10.5 g/dL (12.0-16.0); LYMPHOCYTES # (AUTO) 0.8 X10^3/uL (1.3-2.9); LYMPHOCYTES % (AUTO) 4.7 % (21.0-51.0); MEAN CORPUSCULAR HEMOGLOBIN 28.2 pg (27.0-34.0); MEAN CORPUSCULAR HGB CONC 33.6 g/dL (33.0-35.0); MEAN PLATELET VOLUME 8.8 fL (7.4-11.0); MONOCYTES # (AUTO) 1.6 x10^3/uL (0.3-0.8); MONOCYTES % (AUTO) 10.2 % (0.0-13.0); NEUTROPHILS # (AUTO) 13.7 x10^3/uL (2.2-4.8); NEUTROPHILS % (AUTO) 84.3 % (42.0-75.0); RED BLOOD COUNT 3.74 X10^6/uL (3.5-5.4); RED CELL DISTRIBUTION WIDTH 15.2 % (11.6-16.5); WHITE BLOOD COUNT 16.2 X10^3/uL (3.6-10.0)
[2021-07-14 05:26] LABS: ALANINE AMINOTRANSFERASE 31 Units/L (12-78); ALBUMIN 2.9 g/dL (3.4-5.0); ALKALINE PHOSPHATASE 211 Units/L (46-116); ASPARTATE AMINO TRANSFERASE 31 Units/L (15-37); BLOOD UREA NITROGEN 29 mg/dL (7-18); CALCIUM 8.4 mg/dL (8.5-10.1); CARBON DIOXIDE 28.1 mmol/L (21-32); CHLORIDE 105 mmol/L (98-107); COR CA(FOR HYPOALB) 9.3 mg/dL (8.5-10.1); COR NA(FOR HYPERGLY) 141 mmol/L (136-145); CREATININE 0.85 mg/dL (0.55-1.02); MAGNESIUM 1.9 mg/dL (1.7-2.9); SODIUM 141 mmol/L (136-145); TOTAL PROTEIN 5.8 g/dL (6.4-8.2); eGFR NON BLACK RACES > 60 (>60)
[2021-07-14] MEDS: MAGNESIUM SULFATE 1 GRAM/100 mL PREMIX 1 G/100 ML BAG IV PRN ×2 (05:38→07:17)
[2021-07-14] MEDS: APRESOLINE TAB 25 MG PO SCH ×4 (05:38→20:27)
[2021-07-14] MEDS: MICRO K EXTEN CAP 10 MEQ PO PRN ×2 (05:38→05:40)
--- NOTE | 2021-07-14 06:29 | RAD ---
CHEST, 1 VIEWHISTORY: shortness of breathStudy: Single view of the chest.Comparison:07/13/2021Findings:The cardiomediastinal silhouette is normal. No change in the appearance of bilateral insterstitial and airspace opacities. Stable trace bilateral effusions. Osseous structures demonstrate no acute abnormality.IMPRESSION:1. No change from prior.Electronically signed by: ALIDA BANG (Jul 14, 2021 06:27:06)
[2021-07-14] MEDS ORDERED: ZESTRIL TAB 20 MG ONE ×2 (08:54→20:23)
[2021-07-14] MEDS: ALBUMIN HUMAN 25%- 100 ML 100 ML IV SCH (08:57)
[2021-07-14] MEDS: ELIQUIS PO SCH ×2 (08:58→20:30)
[2021-07-14] MEDS: LANOXIN INJ IVP SCH (08:59)
[2021-07-14] MEDS: PAXIL PO SCH (09:00)
[2021-07-14] MEDS ORDERED: CARDIZEM CD 240 MG 24-HR PO SCH (09:00)
[2021-07-14] MEDS: TYGACIL 50 MG VIAL 50 MG in NS 100 ML IV 100 ML IV SCH ×2 (09:00→20:31)
[2021-07-14] MEDS: PROTONIX TAB 40 MG PO SCH (09:00)
[2021-07-14] MEDS: ZESTRIL TAB 20 MG PO SCH ×2 (09:01→20:31)
[2021-07-14] MEDS: ESTRACE PO SCH (09:02)
[2021-07-14] MEDS: TRICOR TAB 145 MG PO SCH (09:02)
[2021-07-14] MEDS ORDERED: VALIUM PO ONE (11:00)
[2021-07-14] MEDS ORDERED: CATAPRES TAB 0.2 MG PO ONE (11:00)
[2021-07-14] MEDS ORDERED: CARDIZEM CD 120 MG 24-HR PO ONE (11:00)
[2021-07-14] MEDS: FLAGYL IV PREMIX 500 MG BAG 500 MG/100 ML BAG IV SCH ×3 (11:01→20:30)
[2021-07-14] MEDS: RESTORIL CAP 15 MG PO SCH (20:30)
[2021-07-14] MEDS: LASIX IVP PRN (20:32)
[2021-07-15] MEDS: FLAGYL IV PREMIX 500 MG BAG 500 MG/100 ML BAG IV SCH (03:14)
[2021-07-15 05:25] LABS: BASOPHILS # (AUTO) 0.1 X10^3/uL (0.0-0.1); BASOPHILS % (AUTO) 0.3 % (0.2-1.0); EOSINOPHILS # (AUTO) 0.3 x10^3/uL (0.0-0.2); EOSINOPHILS % (AUTO) 1.4 % (0.9-2.9); HEMATOCRIT 31.9 % (36.0-47.0); HEMOGLOBIN 10.7 g/dL (12.0-16.0); LYMPHOCYTES # (AUTO) 1.2 X10^3/uL (1.3-2.9); LYMPHOCYTES % (AUTO) 6.1 % (21.0-51.0); MEAN CORPUSCULAR HEMOGLOBIN 28.3 pg (27.0-34.0); MEAN CORPUSCULAR HGB CONC 33.6 g/dL (33.0-35.0); MEAN CORPUSCULAR VOLUME 84.4 fL (80.0-100.0); MEAN PLATELET VOLUME 8.9 fL (7.4-11.0); MONOCYTES # (AUTO) 1.7 x10^3/uL (0.3-0.8); NEUTROPHILS # (AUTO) 15.9 x10^3/uL (2.2-4.8); NEUTROPHILS % (AUTO) 83.2 % (42.0-75.0); RED BLOOD COUNT 3.77 X10^6/uL (3.5-5.4); RED CELL DISTRIBUTION WIDTH 15.4 % (11.6-16.5); WHITE BLOOD COUNT 19.1 X10^3/uL (3.6-10.0)
[2021-07-15 05:39] LABS: ALANINE AMINOTRANSFERASE 28 Units/L (12-78); ALKALINE PHOSPHATASE 171 Units/L (46-116); ASPARTATE AMINO TRANSFERASE 19 Units/L (15-37); BLOOD UREA NITROGEN 41 mg/dL (7-18); CALCIUM 8.5 mg/dL (8.5-10.1); CARBON DIOXIDE 28.6 mmol/L (21-32); CHLORIDE 104 mmol/L (98-107); COR CA(FOR HYPOALB) 9.3 mg/dL (8.5-10.1); CREATININE 0.99 mg/dL (0.55-1.02); MAGNESIUM 2.1 mg/dL (1.7-2.9); SODIUM 139 mmol/L (136-145); TOTAL PROTEIN 5.6 g/dL (6.4-8.2); eGFR NON BLACK RACES 57 (>60)
--- NOTE | 2021-07-15 06:46 | RAD ---
HISTORYShortness of breathSTUDYChest AP [id number]/2022FINDINGSHear t size is normal. Amanda are normal. Lungs are well inflated. Upper lung patrick remain clear. Decreasing haziness is present in the right lung base likely due to decreasing pleural effusion. A small right basal infiltrate is likely present. Left lung appears clear. Bony thorax is unremarkable.IMPRESSIONSmall right basilar lung infiltrate remainElectronically signed by: HUSAM GRANDE (Jul 15, 2021 06:44:14)
[2021-07-15] MEDS ORDERED: ZESTRIL TAB 20 MG ONE ×2 (07:57→19:14)
[2021-07-15] MEDS: ALBUMIN HUMAN 25%- 100 ML 100 ML IV SCH (08:01)
[2021-07-15] MEDS: APRESOLINE TAB 25 MG PO SCH ×4 (08:02→20:38)
[2021-07-15] MEDS: CARDIZEM CD 360 MG 24-HR PO SCH (08:03)
[2021-07-15] MEDS: ELIQUIS PO SCH ×2 (08:04→20:39)
[2021-07-15] MEDS: ESTRACE PO SCH (08:05)
[2021-07-15] MEDS: PAXIL PO SCH (08:05)
[2021-07-15] MEDS: ZESTRIL TAB 20 MG PO SCH ×2 (08:06→20:39)
[2021-07-15] MEDS: TRICOR TAB 145 MG PO SCH (08:06)
[2021-07-15] MEDS: PROTONIX TAB 40 MG PO SCH (08:06)
[2021-07-15] MEDS ORDERED: LEVAQUIN PREMIX IV 500 MG 500 MG/100 ML BAG IV SCH (09:00)
[2021-07-15] MEDS: VSL#3 PO SCH (10:37)
[2021-07-15] MEDS: FORTAZ or TAZICEF VIAL INJ 1 G in NS 100 ML IV 100 ML IV SCH ×3 (10:37→21:03)
[2021-07-15] MEDS: ZOFRAN TAB 4 MG SL PRN (11:58)
--- NOTE | 2021-07-15 14:26 | PCM.PROG ---
Progress Note - Progress Note for Day of Date of Exam: 07/12/21 - Subjective Subjective: IS A 81 YEAR OLD PATIENT OF OURS. SHE IS CURRENTLY INPATIENT STATUS FOR TREATMENT OF ACUTE RENAL FAILURE, DEHYDRATION, ACUTE CHOLECYSTITIS, ANEMIA, NEW ONSET A-FIB, PLEURAL EFFUSION. SHE HAS RECEIVED ONE UNIT OF PRBC SINCE ADMISSION. SHE IS DAY 4 S/P LAPAROSCOPIC CHOLECYSTECTOMY. SHE REMAINS IN THE INTENSIVE CARE UNIT. SHE HAS REMAINED HYPERTENSIVE THROUGHOUT THE NIGHT. HER HEARTRATE IS STABLE THIS MORNING. TODAY, SHE REPORTS SHORTNESS OF BREATH AND WEAKNESS. ON EXAMINATION, HEARTRATE IS RUNNING 50s-60s. RHYTHM IS REGULAR. BILATERAL LUNGS NOTED WITH DIMINISHED LUNG SOUNDS THROUGHOUT. ABDOMEN IS ROUND, SOFT, AND NOTED WITH DIFFUSE TENDERNESS. POOL CATHETER NOTED TO BEDSIDE DRAINAGE. TRACE LOWER EXTREMITY EDEMA NOTED. HER VITALS THIS MORNING ARE: 98.2-67-28-98%-192/82. LABS WERE OBTAINED. WBC 16.3, RBC 3.03, HGB 8.6, HCT 25.7, SODIUM 136, POTASSIUM 3.6, CHLORIDE 103, BUN 18, CREATININE 0.90, GLUCOSE 107, CALCIUM 8.4, AST 39, ALT 49, ALK PHS 195, TROPONIN 65.0, CRP 131.60, BNP 2020, TOTAL PROTEIN 5.8, ALBUMIN 2.6, GLOBULIN 3.2. A CHEST XRAY WAS OBTAINED AND REVEALED: The heart remains enlarged. The corey are normal. Upper lung patrick appear clear. Haziness in the right lung base is likely due to the patient's known right pleural effusion and is unchanged. Increased density retrocardiac area left lower lobe obscuring left hemidiaphragm is likely due to the patient's known left pleural effusion. No pneumothorax is identified. Bony thorax is unremarkable. SHE IS CURRENTLY RECEIVING ALBUMIN 25% IV DAILY, ZOSYN 3.375G IV TID, CARDIZEM 120MG PO DAILY, METOPROLOL 50MG DAILY, LASIX 40MG IV Q12H, THE POTASSIUM AND MAGNESIUM PROTOCOLS, LISINOPRIL 20MG PO DAILY, RESTORIL 30MG PO HS, PAXIL 60MG PO DAILY, PROTONIX 40MG PO DAILY, APRESOLINE 10MG IV Q6H PRN, KLONOPIN 0.5MG PO DAILY. TODAY, WE WILL INCREASE LISINOPRIL TO 20MG BID, DECREASE METOPROLOL TO 25MG PO DAILY DUE TO HR IN THE 50s, AND CHANGE LASIX TO BID PRN. OTHERWISE, WE PLAN TO FOLLOW-UP WITH AM LABS AND CHEST XRAY AND CONTINUE TO MONITOR. TIME SPENT ON CLINICAL ASSESSMENT, REVIEWING LABS AND IMAGING, DECISION MAKING, AND DOCUMENTATION GREATER THAN 45 MINUTES. - Past Medical Family Social History Past Med/Fam/Surg Hx: No changes since H&P Allergies: Allergies codeine Allergy (Verified 02/02/17 07:32) - Review of Systems ROS: No change since H&P - Vital Signs and I&O's Vital Signs: Temperature 97.4 F Pulse Rate [Brachial] 98 Pulse Rate 65 Respiratory Rate 23 Blood Pressure [Right Arm] 182/78 Blood Pressure [Left Arm] 143/70 Blood Pressure 148/66 O2 Sat by Pulse Oximetry 96 Intake and Output: Intake & Output 07/13/21 07/14/21 07/15/21 07/16/21 11:59 11:59 11:59 11:59 Intake Total 1552 / 1552 1486 / 1486 1778 / 1778 Output Total 2049 / 2049 1725 / 1725 1450 / 1450 Balance -498 / -498 -239 / -239 328 / 328 - Physical Exam Oriented: Normal Eyes: Normal Ear: Normal Nose: Normal Throat: Normal Respiratory: Generalized, Diminished Cardiovascular: Normal : Normal Auscultation: Bowel Sounds: Normal Tenderness: Diffuse, Mild Skin: Normal Musculoskeletal: Normal Psychiatric: Normal Mood Description: Calm Affect: Normal Speech Pattern: Clear - Laboratory and Diagnostics Result Diagrams: 07/15/21 04:05 07/15/21 04:05 Labs: Laboratory WBC 19.1 X10^3/uL (3.6-10.0) H 07/15/21 04:05 RBC 3.77 X10^6/uL (3.5-5.4) 07/15/21 04:05 Hgb 10.7 g/dL (12.0-16.0) L 07/15/21 04:05 Hct 31.9 % (36.0-47.0) L 07/15/21 04:05 MCV 84.4 fL (80.0-100.0) 07/15/21 04:05 MCH 28.3 pg (27.0-34.0) 07/15/21 04:05 MCHC 33.6 g/dL (33.0-35.0) 07/15/21 04:05 RDW 15.4 % (11.6-16.5) 07/15/21 04:05 Plt Count 564 X10^3/uL (150.0-450.0) H 07/15/21 04:05 Plt Count Comment Increased (ADEQUATE) A 07/13/21 03:45 MPV 8.9 fL (7.4-11.0) 07/15/21 04:05 Neut % (Auto) 83.2 % (42.0-75.0) H 07/15/21 04:05 Lymph % (Auto) 6.1 % (21.0-51.0) L 07/15/21 04:05 [place] % (Auto) 9.0 % (0.0-13.0) 07/15/21 04:05 Eos % (Auto) 1.4 % (0.9-2.9) 07/15/21 04:05 Baso % (Auto) 0.3 % (0.2-1.0) 07/15/21 04:05 Neut # (Auto) 15.9 x10^3/uL (2.2-4.8) H 07/15/21 04:05 Lymph # (Auto) 1.2 X10^3/uL (1.3-2.9) L 07/15/21 04:05 [place] # (Auto) 1.7 x10^3/uL (0.3-0.8) H 07/15/21 04:05 Eos # (Auto) 0.3 x10^3/uL (0.0-0.2) H 07/15/21 04:05 Baso # (Auto) 0.1 X10^3/uL (0.0-0.1) 07/15/21 04:05 Absolute Nucleated RBC 0.1 /100WBC 07/15/21 04:05 Total Counted 100 07/13/21 03:45 Neutrophils % (Manual) 79 % (39-76) H 07/13/21 03:45 Band Neutrophils % 5 % (0-10) 07/13/21 03:45 Lymphocytes % (Manual) 8 % (13-43) L 07/13/21 03:45 Monocytes % (Manual) 5 % (4-9) 07/13/21 03:45 Eosinophils % (Manual) 3 % (0-6) 07/13/21 03:45 Plt Morphology Comment Normal (NORMAL) 07/13/21 03:45 RBC Morphology Normal (NORMAL) 07/13/21 03:45 Hypochromasia Slight A 07/12/21 04:37 Target Cells Present 07/12/21 04:37 D-Dimer 7.20 ug/ml (0.0-0.57) H* 07/10/21 14:35 Sodium 139 mmol/L (136-145) 07/15/21 04:05 Corrected Sodium TNP 07/15/21 04:05 Potassium 3.8 mmol/L (3.5-5.1) 07/15/21 04:05 Chloride 104 mmol/L (98-107) 07/15/21 04:05 Carbon Dioxide 28.6 mmol/L (21-32) 07/15/21 04:05 BUN 41 mg/dL (7-18) H 07/15/21 04:05 Creatinine 0.99 mg/dL (0.55-1.02) 07/15/21 04:05 Est GFR (MDRD) Af Amer > 60 (>60) 07/15/21 04:05 Est GFR (MDRD) Non-Af 57 (>60) L 07/15/21 04:05 Glucose 108 mg/dL (65-99) H 07/15/21 04:05 Calcium 8.5 mg/dL (8.5-10.1) 07/15/21 04:05 Corrected Calcium 9.3 mg/dL (8.5-10.1) 07/15/21 04:05 Magnesium 2.1 mg/dL (1.7-2.9) 07/15/21 04:05 Total Bilirubin 0.60 mg/dL (0.2-1.0) 07/15/21 04:05 AST 19 Units/L (15-37) 07/15/21 04:05 ALT 28 Units/L (12-78) 07/15/21 04:05 Alkaline Phosphatase 171 Units/L (46-116) H 07/15/21 04:05 Creatine Kinase 91 Units/L (26-192) 07/12/21 04:37 CK-MB (CK-2) 1.4 ng/mL (0-4.0) 07/12/21 04:37 CK/CKMB % Calc 1.5 % (<4) 07/12/21 04:37 Troponin I High Sens 65.0 ng/L (4.0-60.0) H* 07/12/21 04:37 C-Reactive Protein 85.40 mg/L (0-3.0) H 07/15/21 04:05 B-Natriuretic Peptide 1110 pg/mL (0-79) H* 07/15/21 04:05 Total Protein 5.6 g/dL (6.4-8.2) L 07/15/21 04:05 Albumin 3.0 g/dL (3.4-5.0) L 07/15/21 04:05 Globulin 2.6 g/dL (2.5-4.5) 07/15/21 04:05 Albumin/Globulin Ratio 1.2 Ratio (1.1-2.1) 07/15/21 04:05 Amylase 35 Units/L (25-115) 07/06/21 22:34 Lipase 52 Units/L (73-393) L 07/06/21 22:34 Specimen Type Catherized urine 07/11/21 11:25 Urine Color Yellow (YELLOW) 07/11/21 11:25 Urine Appearance Clear (CLEAR) 07/11/21 11:25 Urine pH 6.0 (5.0 - 8.0) 07/11/21 11:25 Ur Specific [place] 1.015 (1.000-1.030) 07/11/21 11:25 Urine Protein 1+ (NEGATIVE) 07/11/21 11:25 Urine Glucose (UA) Negative (NEGATIVE) 07/11/21 11:25 Urine Ketones Negative (NEGATIVE) 07/11/21 11:25 Urine Blood Negative (NEGATIVE) 07/11/21 11:25 Urine Nitrite Negative (NEGATIVE) 07/11/21 11:25 Urine Bilirubin Negative (NEGATIVE) 07/11/21 11:25 Urine Urobilinogen Normal (NORMAL) 07/11/21 11:25 Ur Leukocyte Esterase Negative (NEGATIVE) 07/11/21 11:25 Urine RBC 0-2 /HPF (0-3) 07/11/21 11:25 Urine WBC 0-2 /HPF (0-5) 07/11/21 11:25 Ur Squamous Epith Cells Rare /HPF (NEGATIVE) 07/11/21 11:25 Amorphous Sediment Trace /HPF (NEGATIVE) 07/07/21 14:55 Urine Bacteria Negative /HPF (NEGATIVE) 07/11/21 11:25 Ur Culture Indicated? No/not indicated 07/11/21 11:25 Digoxin 0.51 ng/mL (0.9-2) L 07/13/21 03:45 SARS-CoV-2 (PCR) Negative (NEGATIVE) 07/07/21 00:32 Tissue Pathology To follow 07/08/21 09:55 Blood Type O POSITIVE 07/13/21 15:07 Antibody Screen Negative 07/13/21 15:07 Crossmatch See Detail 07/13/21 15:07 - Plan (1) S/P laparoscopic cholecystectomy Status: Acute Plan: ALBUMIN 25% IV DAILY, ZOSYN 3.375G IV TID, CARDIZEM CD 120MG PO DAILY, THE POTASSIUM AND MAGNESIUM PROTOCOLS, METOPROLOL 25MG PO DAILY, CARDIZEM 120MG PO DAILY, LISINOPRIL 20MG PO BID, RESTORIL 30MG PO HS, PAXIL 60MG PO DAILY, PROTONIX 40MG PO DAILY, APRESOLINE 10MG IV Q6H PRN, KLONOPIN 0.5MG PO DAILY, LASIX 40MG IV BID PRN (2) Pleural effusion Status: Acute (3) New onset atrial fibrillation Status: Acute (4) Shortness of breath Status: Acute (5) Anemia Status: Acute Qualifiers: Anemia type: unspecified type (6) Hyponatremia Status: Resolved (7) JESUS (acute kidney injury) Status: Resolved (8) HTN (hypertension) Status: Chronic Qualifiers: Hypertension type: primary hypertension Qualified Code(s): I10 - Essential (primary) hypertension
--- NOTE | 2021-07-15 15:01 | PCM.PROG ---
Progress Note - Progress Note for Day of Date of Exam: 07/15/21 - Subjective Subjective: IS A 81 YEAR OLD PATIENT OF OURS. SHE IS CURRENTLY INPATIENT STATUS FOR TREATMENT OF ACUTE RENAL FAILURE, DEHYDRATION, ACUTE CHOLECYSTITIS, ANEMIA, NEW ONSET A-FIB, PLEURAL EFFUSION, AND PULMONARY HYPERTENSION. SHE HAS RECEIVED TWO UNITS OF PRBC SINCE ADMISSION. SHE IS DAY 7 S/P LAPAROSCOPIC CHOLECYSTECTOMY. SHE REMAINS IN THE INTENSIVE CARE UNIT. SHE HAS REMAINED HYPERTENSIVE THROUGHOUT THE NIGHT. HER HEARTRATE IS STABLE THIS MORNING. TODAY, SHE CONTINUES TO REPORT WEAKNESS, DECREASED APPETITE, AND SHORTNESS OF BREATH AT TIMES. ON EXAMINATION, HEARTRATE IS RUNNING 50s-60s. RHYTHM IS REGULAR. BILATERAL LUNGS NOTED WITH DIMINISHED LUNG SOUNDS THROUGHOUT. ABDOMEN IS ROUND, SOFT, AND NOTED WITH DIFFUSE TENDERNESS. POOL CATHETER NOTED TO BEDSIDE DRAINAGE. TRACE LOWER EXTREMITY EDEMA NOTED. HER VITALS THIS MORNING ARE: 97.4-71-29-95%-171/81. LABS WERE OBTAINED. WBC 19.1, HGB 10.7, HCT 31.9, PLT COUNT 564, SODIUM 139, POTASSIUM 3.8, CHLORIDE 104, BUN 41, CREATININE 0.99, GLUCOSE 108, ALK PHOS 171, CRP 85.40, BNP 1110, TOTAL PROTEIN 5.6, ALBUMIN 3.0. A CHEST XRAY WAS OBTAINED AND REVEALED: Small right basilar lung infiltrate remain. SHE IS CURRENTLY RECEIVING ALBUMIN 25% IV DAILY, TYGACIL, FLAGYL, CARDIZEM 360MG PO DAILY, METOPROLOL 25MG DAILY, LASIX 40MG IV Q12H PRN, THE POTASSIUM AND MAGNESIUM PROTOCOLS, LISINOPRIL 20MG PO BID, ELIQUIS 2.5MG PO BID, RESTORIL 30MG PO HS, PAXIL 20MG PO DAILY, ZOFRAN 4MG SL Q6H PRN, PROTONIX 40MG PO DAILY, APRESOLINE 10MG IV Q6H PRN, KLONOPIN 0.5MG PO DAILY. TODAY, WE WILL DISCONTINUE THE TYGACIL AND FLAGYL. WE WILL ADD FORTAZ AND LEVAQUIN. OTHERWISE, WE PLAN TO FOLLOW-UP WITH AM LABS AND CHEST XRAY AND CONTINUE TO MONITOR. TIME SPENT ON CLINICAL ASSESSMENT, REVIEWING LABS AND IMAGING, DECISION MAKING, AND DOCUMENTATION GREATER THAN 45 MINUTES. - Past Medical Family Social History Past Med/Fam/Surg Hx: No changes since H&P Allergies: Allergies codeine Allergy (Verified 02/02/17 07:32) - Review of Systems ROS: No change since H&P - Vital Signs and I&O's Vital Signs: Temperature 97.4 F Pulse Rate [Brachial] 98 Pulse Rate 65 Respiratory Rate 23 Blood Pressure [Right Arm] 182/78 Blood Pressure [Left Arm] 143/70 Blood Pressure 148/66 O2 Sat by Pulse Oximetry 96 Intake and Output: Intake & Output 07/13/21 07/14/21 07/15/21 07/16/21 11:59 11:59 11:59 11:59 Intake Total 1552 / 1552 1486 / 1486 1778 / 1778 Output Total 2049 / 2049 1725 / 1725 1450 / 1450 Balance -498 / -498 -239 / -239 328 / 328 - Physical Exam Oriented: Normal Eyes: Normal Ear: Normal Nose: Normal Throat: Normal Respiratory: Generalized, Diminished Cardiovascular: Normal : Normal Auscultation: Bowel Sounds: Normal Palpation: Normal Tenderness: Diffuse, Mild Skin: Normal Musculoskeletal: Normal Psychiatric: Normal Mood Description: Calm Affect: Normal Speech Pattern: Clear - Laboratory and Diagnostics Result Diagrams: 07/15/21 04:05 07/15/21 04:05 Labs: Laboratory WBC 19.1 X10^3/uL (3.6-10.0) H 07/15/21 04:05 RBC 3.77 X10^6/uL (3.5-5.4) 07/15/21 04:05 Hgb 10.7 g/dL (12.0-16.0) L 07/15/21 04:05 Hct 31.9 % (36.0-47.0) L 07/15/21 04:05 MCV 84.4 fL (80.0-100.0) 07/15/21 04:05 MCH 28.3 pg (27.0-34.0) 07/15/21 04:05 MCHC 33.6 g/dL (33.0-35.0) 07/15/21 04:05 RDW 15.4 % (11.6-16.5) 07/15/21 04:05 Plt Count 564 X10^3/uL (150.0-450.0) H 07/15/21 04:05 Plt Count Comment Increased (ADEQUATE) A 07/13/21 03:45 MPV 8.9 fL (7.4-11.0) 07/15/21 04:05 Neut % (Auto) 83.2 % (42.0-75.0) H 07/15/21 04:05 Lymph % (Auto) 6.1 % (21.0-51.0) L 07/15/21 04:05 [place] % (Auto) 9.0 % (0.0-13.0) 07/15/21 04:05 Eos % (Auto) 1.4 % (0.9-2.9) 07/15/21 04:05 Baso % (Auto) 0.3 % (0.2-1.0) 07/15/21 04:05 Neut # (Auto) 15.9 x10^3/uL (2.2-4.8) H 07/15/21 04:05 Lymph # (Auto) 1.2 X10^3/uL (1.3-2.9) L 07/15/21 04:05 [place] # (Auto) 1.7 x10^3/uL (0.3-0.8) H 07/15/21 04:05 Eos # (Auto) 0.3 x10^3/uL (0.0-0.2) H 07/15/21 04:05 Baso # (Auto) 0.1 X10^3/uL (0.0-0.1) 07/15/21 04:05 Absolute Nucleated RBC 0.1 /100WBC 07/15/21 04:05 Total Counted 100 07/13/21 03:45 Neutrophils % (Manual) 79 % (39-76) H 07/13/21 03:45 Band Neutrophils % 5 % (0-10) 07/13/21 03:45 Lymphocytes % (Manual) 8 % (13-43) L 07/13/21 03:45 Monocytes % (Manual) 5 % (4-9) 07/13/21 03:45 Eosinophils % (Manual) 3 % (0-6) 07/13/21 03:45 Plt Morphology Comment Normal (NORMAL) 07/13/21 03:45 RBC Morphology Normal (NORMAL) 07/13/21 03:45 Hypochromasia Slight A 07/12/21 04:37 Target Cells Present 07/12/21 04:37 D-Dimer 7.20 ug/ml (0.0-0.57) H* 07/10/21 14:35 Sodium 139 mmol/L (136-145) 07/15/21 04:05 Corrected Sodium TNP 07/15/21 04:05 Potassium 3.8 mmol/L (3.5-5.1) 07/15/21 04:05 Chloride 104 mmol/L (98-107) 07/15/21 04:05 Carbon Dioxide 28.6 mmol/L (21-32) 07/15/21 04:05 BUN 41 mg/dL (7-18) H 07/15/21 04:05 Creatinine 0.99 mg/dL (0.55-1.02) 07/15/21 04:05 Est GFR (MDRD) Af Amer > 60 (>60) 07/15/21 04:05 Est GFR (MDRD) Non-Af 57 (>60) L 07/15/21 04:05 Glucose 108 mg/dL (65-99) H 07/15/21 04:05 Calcium 8.5 mg/dL (8.5-10.1) 07/15/21 04:05 Corrected Calcium 9.3 mg/dL (8.5-10.1) 07/15/21 04:05 Magnesium 2.1 mg/dL (1.7-2.9) 07/15/21 04:05 Total Bilirubin 0.60 mg/dL (0.2-1.0) 07/15/21 04:05 AST 19 Units/L (15-37) 07/15/21 04:05 ALT 28 Units/L (12-78) 07/15/21 04:05 Alkaline Phosphatase 171 Units/L (46-116) H 07/15/21 04:05 Creatine Kinase 91 Units/L (26-192) 07/12/21 04:37 CK-MB (CK-2) 1.4 ng/mL (0-4.0) 07/12/21 04:37 CK/CKMB % Calc 1.5 % (<4) 07/12/21 04:37 Troponin I High Sens 65.0 ng/L (4.0-60.0) H* 07/12/21 04:37 C-Reactive Protein 85.40 mg/L (0-3.0) H 07/15/21 04:05 B-Natriuretic Peptide 1110 pg/mL (0-79) H* 07/15/21 04:05 Total Protein 5.6 g/dL (6.4-8.2) L 07/15/21 04:05 Albumin 3.0 g/dL (3.4-5.0) L 07/15/21 04:05 Globulin 2.6 g/dL (2.5-4.5) 07/15/21 04:05 Albumin/Globulin Ratio 1.2 Ratio (1.1-2.1) 07/15/21 04:05 Amylase 35 Units/L (25-115) 07/06/21 22:34 Lipase 52 Units/L (73-393) L 07/06/21 22:34 Specimen Type Catherized urine 07/11/21 11:25 Urine Color Yellow (YELLOW) 07/11/21 11:25 Urine Appearance Clear (CLEAR) 07/11/21 11:25 Urine pH 6.0 (5.0 - 8.0) 07/11/21 11:25 Ur Specific [place] 1.015 (1.000-1.030) 07/11/21 11:25 Urine Protein 1+ (NEGATIVE) 07/11/21 11:25 Urine Glucose (UA) Negative (NEGATIVE) 07/11/21 11:25 Urine Ketones Negative (NEGATIVE) 07/11/21 11:25 Urine Blood Negative (NEGATIVE) 07/11/21 11:25 Urine Nitrite Negative (NEGATIVE) 07/11/21 11:25 Urine Bilirubin Negative (NEGATIVE) 07/11/21 11:25 Urine Urobilinogen Normal (NORMAL) 07/11/21 11:25 Ur Leukocyte Esterase Negative (NEGATIVE) 07/11/21 11:25 Urine RBC 0-2 /HPF (0-3) 07/11/21 11:25 Urine WBC 0-2 /HPF (0-5) 07/11/21 11:25 Ur Squamous Epith Cells Rare /HPF (NEGATIVE) 07/11/21 11:25 Amorphous Sediment Trace /HPF (NEGATIVE) 07/07/21 14:55 Urine Bacteria Negative /HPF (NEGATIVE) 07/11/21 11:25 Ur Culture Indicated? No/not indicated 07/11/21 11:25 Digoxin 0.51 ng/mL (0.9-2) L 07/13/21 03:45 SARS-CoV-2 (PCR) Negative (NEGATIVE) 07/07/21 00:32 Tissue Pathology To follow 07/08/21 09:55 Blood Type O POSITIVE 07/13/21 15:07 Antibody Screen Negative 07/13/21 15:07 Crossmatch See Detail 07/13/21 15:07 - Plan (1) Pneumonia Status: Acute Qualifiers: Pneumonia type: due to unspecified organism Laterality: right Lung location: lower lobe of lung Qualified Code(s): J18.9 - Pneumonia, unspecified organism Plan: ALBUMIN 25% IV DAILY, FORTAZ 1G IV Q8H, LEVAQUIN 500MG IV DAILY, CARDIZEM CD 120MG PO DAILY, THE POTASSIUM AND MAGNESIUM PROTOCOLS, METOPROLOL 25MG PO DAILY, CARDIZEM 360MG PO DAILY, ELIQUIS 2.5MG PO BID, ZOFRAN PRN, LISINOPRIL 20MG PO BID, RESTORIL 30MG PO HS, PAXIL 60MG PO DAILY, PROTONIX 40MG PO DAILY, APRESOLINE 10MG IV Q6H PRN, KLONOPIN 0.5MG PO DAILY, LASIX 40MG IV BID PRN (2) S/P laparoscopic cholecystectomy Status: Acute (3) Pleural effusion Status: Acute (4) New onset atrial fibrillation Status: Acute (5) Shortness of breath Status: Acute (6) Anemia Status: Acute Qualifiers: Anemia type: unspecified type (7) Hyponatremia Status: Resolved (8) JESUS (acute kidney injury) Status: Resolved (9) HTN (hypertension) Status: Chronic Qualifiers: Hypertension type: primary hypertension Qualified Code(s): I10 - Essential (primary) hypertension
[2021-07-15] MEDS: RESTORIL CAP 15 MG PO SCH (20:38)
[2021-07-16 05:01] LABS: BASOPHILS # (AUTO) 0.1 X10^3/uL (0.0-0.1); BASOPHILS % (AUTO) 0.3 % (0.2-1.0); EOSINOPHILS # (AUTO) 0.1 x10^3/uL (0.0-0.2); EOSINOPHILS % (AUTO) 0.4 % (0.9-2.9); HEMATOCRIT 32.4 % (36.0-47.0); HEMOGLOBIN 10.8 g/dL (12.0-16.0); LYMPHOCYTES % (AUTO) 5.3 % (21.0-51.0); MEAN CORPUSCULAR HEMOGLOBIN 28.2 pg (27.0-34.0); MEAN CORPUSCULAR HGB CONC 33.3 g/dL (33.0-35.0); MEAN CORPUSCULAR VOLUME 84.7 fL (80.0-100.0); MEAN PLATELET VOLUME 8.7 fL (7.4-11.0); MONOCYTES # (AUTO) 1.5 x10^3/uL (0.3-0.8); MONOCYTES % (AUTO) 7.7 % (0.0-13.0); NEUTROPHILS # (AUTO) 17.2 x10^3/uL (2.2-4.8); NEUTROPHILS % (AUTO) 86.3 % (42.0-75.0); RED BLOOD COUNT 3.82 X10^6/uL (3.5-5.4); RED CELL DISTRIBUTION WIDTH 15.2 % (11.6-16.5); WHITE BLOOD COUNT 19.9 X10^3/uL (3.6-10.0)
[2021-07-16 05:07] LABS: ALANINE AMINOTRANSFERASE 25 Units/L (12-78); ALBUMIN 3.2 g/dL (3.4-5.0); ALKALINE PHOSPHATASE 140 Units/L (46-116); ASPARTATE AMINO TRANSFERASE 17 Units/L (15-37); BLOOD UREA NITROGEN 47 mg/dL (7-18); CALCIUM 8.5 mg/dL (8.5-10.1); CARBON DIOXIDE 27.5 mmol/L (21-32); CHLORIDE 104 mmol/L (98-107); COR CA(FOR HYPOALB) 9.1 mg/dL (8.5-10.1); COR NA(FOR HYPERGLY) 139 mmol/L (136-145); CREATININE 1.06 mg/dL (0.55-1.02); SODIUM 139 mmol/L (136-145); TOTAL PROTEIN 5.5 g/dL (6.4-8.2); eGFR NON BLACK RACES 53 (>60)
[2021-07-16] MEDS: FORTAZ or TAZICEF VIAL INJ 1 G in NS 100 ML IV 100 ML IV SCH (05:12)
[2021-07-16 05:38] LABS: IRON 48 ug/dL (50-175)
--- NOTE | 2021-07-16 06:09 | RAD ---
HISTORYShortness of breathSTUDYChest AP [id number]/06/2022FINDINGSHear t size is normal. Amanda are normal. Lungs remain well inflated. Upper lung patrick remain clear. Haziness remains at the right lung base likely due to residual pleural effusion and lower lobe infiltrate. Increasing density is present in the retrocardiac area of the left lower lobe obscuring the left hemidiaphragm. This could be on the basis of atelectasis, infiltrate, or pleural fluid. Bony thorax is unremarkable.IMPRESSIONHaziness remains at the right base likely due to residual pleural effusion and right basilar infiltrateIncreasing density retrocardiac area of the left lower lobe which could be due to developing atelectasis, infiltrate, effusion or combinationElectronically signed by: HUSAM GRANDE (Jul 16, 2021 06:08:31)
[2021-07-16] MEDS ORDERED: ZESTRIL TAB 20 MG ONE ×2 (07:32→21:29)
[2021-07-16] MEDS: ALBUMIN HUMAN 25%- 100 ML 100 ML IV SCH (08:05)
[2021-07-16] MEDS: CARDIZEM CD 360 MG 24-HR PO SCH (08:24)
[2021-07-16] MEDS: APRESOLINE TAB 25 MG PO SCH ×4 (08:24→21:38)
[2021-07-16] MEDS: ESTRACE PO SCH (08:25)
[2021-07-16] MEDS: ELIQUIS PO SCH ×2 (08:25→21:38)
[2021-07-16] MEDS: LEVAQUIN PREMIX IV 250 MG 250 MG/50 ML BAG IV SCH (08:32)
[2021-07-16] MEDS: PAXIL PO SCH (08:32)
[2021-07-16] MEDS: VSL#3 PO SCH (08:33)
[2021-07-16] MEDS: TRICOR TAB 145 MG PO SCH (08:33)
[2021-07-16] MEDS: PROTONIX TAB 40 MG PO SCH (08:33)
[2021-07-16] MEDS: ZESTRIL TAB 20 MG PO SCH ×2 (08:34→21:39)
[2021-07-16 09:19] LABS: LACTIC ACID 0.9 mmol/L (0.4-2.0)
[2021-07-16] MEDS: XOPENEX 1.25 MG/3 ML NEBULE NEB SCH ×3 (09:28→21:25)
[2021-07-16] MEDS: MERREM VIAL 1 G in NS 100 ML IV 100 ML IV SCH ×3 (10:12→21:37)
[2021-07-16] MEDS: NYSTATIN POWDER TOP SCH ×2 (11:11→21:56)
[2021-07-16] MEDS: ZOFRAN TAB 4 MG SL PRN (13:48)
--- NOTE | 2021-07-16 14:07 | CT ---
CT abdomen and pelvis without contrastIndication: Post cholecystectomy with fever. History of appendectomy and hysterectomy in the pastTECHNIQUEHelical images through the abdomen and pelvis without contrast. Coronal and sagittal reformats provided.COMPARISONMay 2021 CTFINDINGSReview of bone windows demonstrate no destructive osseous lesion.Limited images through the lower chest demonstrates development of moderate bilateral effusions with dependent atelectasis noted. Small to moderate hiatal hernia noted. Heart size is prominent with few coronary calcifications.Abdomen: There is cholecystectomy change from the prior CT, with probable mixed density collection in the gallbladder fossa with a tiny focus of gas suspected on axial image 38. This is difficult to delineate due to lack of IV contrast but measures roughly 5.8 x 3.7 cm on axial image 38. There is adjacent stranding in this is concerning for abscess.The pancreas, adrenal glands and spleen show no acute abnormality. Kidneys show no stone or hydronephrosis. Circumaortic left renal vein noted. Aortoiliac plaque noted. The stomach and small bowel show no acute abnormality. Colonic diverticulosis is noted. Mild stranding around the right colon at the hepatic flexure is likely reactive to the collection in the gallbladder fossa. Small fluid pocket suspected in the right pericolic gutter on axial image 55. Again, lack of contrast limits further characterization but this measures roughly 1.5 x 3.3 cm and could reflect a small abscess.Pelvis: Urinary bladder is distended with gas. Recommend decompression or voiding. Rectum is normal. Uterus is absent without adnexal region lesion identified.IMPRESSION1. Mixed attenuation area near the gallbladder fossa with small focus of gas is concerning for abscess, with adjacent stranding. Postoperative hematoma or seroma is not entirely excluded. Bile leak cannot be completely excluded. Small pocket of fluid in the right pericolic gutter suspected, with abscess possible.2. Lack of contrast limits sensitivity3. Distended urinary bladder with gas. Correlate clinically for signs of infection and consider voiding or decompression4. Prominent heart size with moderate bilateral effusions.Electronically signed by: RONDA SMITH (Jul 16, 2021 14:06:49)
--- NOTE | 2021-07-16 15:58 | PCM.PROG ---
Progress Note - Progress Note for Day of Date of Exam: 07/16/21 - Subjective Subjective: IS A 81 YEAR OLD PATIENT OF OURS. SHE IS CURRENTLY INPATIENT STATUS FOR TREATMENT OF ACUTE RENAL FAILURE, DEHYDRATION, ACUTE CHOLECYSTITIS, ANEMIA, NEW ONSET A-FIB, PLEURAL EFFUSION, AND PULMONARY HYPERTENSION. SHE HAS RECEIVED TWO UNITS OF PRBC SINCE ADMISSION. SHE IS DAY 8 S/P LAPAROSCOPIC CHOLECYSTECTOMY. SHE REMAINS IN THE INTENSIVE CARE UNIT. SHE HAS REMAINED HYPERTENSIVE THROUGHOUT THE NIGHT. HER HEARTRATE IS STABLE THIS MORNING. TODAY, SHE CONTINUES TO REPORT WEAKNESS, DECREASED APPETITE, NAUSEA, AND SHORTNESS OF BREATH AT TIMES. SHE DENIES ANY ABDOMEN OR CHEST PAIN. ON EXAMINATION, HEARTRATE IS RUNNING 50s-60s. RHYTHM IS REGULAR. BILATERAL LUNGS NOTED WITH DIMINISHED LUNG SOUNDS THROUGHOUT. ABDOMEN IS ROUND, SOFT, AND NON- TENDER WITH HYPOACTIVE BOWEL SOUNDS NOTED IN ALL QUADRANTS. SHE ADMITS TO HAVING A NORMAL BOWEL MOVEMENT YESTERDAY. HER VITALS THIS MORNING ARE: 97.4-71-29-95%-171/81. LABS WERE OBTAINED. WBC 19.1, HGB 10.7, HCT 31.9, PLT COUNT 564, SODIUM 139, POTASSIUM 3.8, CHLORIDE 104, BUN 41, CREATININE 0.99, GLUCOSE 108, ALK PHOS 171, CRP 85.40, BNP 1110, TOTAL PROTEIN 5.6, ALBUMIN 3.0. A CHEST XRAY WAS OBTAINED AND REVEALED: Small right basilar lung infiltrate remain. AN ECHO WAS OBTAINED ON 07/12/21. IT REVEALED AN EJECTION FRACTION OF 65%, DILATED LEFT ATRIAL CAVITY, STRUCTURALLY NORMAL TRICUSPID VALVE WITH MODERATE TO SEVERE REGURGITATION, SEVERE PULMONARY HYPERTENSION. SHE IS CURRENTLY RECEIVING ALBUMIN 25% IV DAILY, FORTAZ IV, LEVAQUIN IV, CARDIZEM 360MG PO DAILY, METOPROLOL 25MG DAILY, LASIX 40MG IV Q12H PRN, THE POTASSIUM AND MAGNESIUM PROTOCOLS, LISINOPRIL 20MG PO BID, ELIQUIS 2.5MG PO BID, RESTORIL 30MG PO HS, PAXIL 20MG PO DAILY, ZOFRAN 4MG SL Q6H PRN, PROTONIX 40MG PO DAILY, APRESOLINE 10MG IV Q6H PRN, KLONOPIN 0.5MG PO DAILY. TODAY, WE WILL DISCONTINUE THE FORTAZ AND ADD MEROPEN. WILL BE HERE ON WEDNESDAY. WE WILL HAVE HIM CONSULT WITH THE PATIENT DUE TO THE NEW ONSET A-FIB AND SEVERE PULMONARY HYPERTENSION. OTHERWISE, WE PLAN TO FOLLOW-UP WITH AM LABS AND CHEST XRAY AND CONTINUE TO MONITOR. TIME SPENT ON CLINICAL ASSESSMENT, REVIEWING LABS AND IMAGING, DECISION MAKING, AND DOCUMENTATION GREATER THAN 45 MINUTES. - Past Medical Family Social History Past Med/Fam/Surg Hx: No changes since H&P Allergies: Allergies codeine Allergy (Verified 02/02/17 07:32) - Review of Systems ROS: No change since H&P - Vital Signs and I&O's Vital Signs: Temperature 97.6 F Pulse Rate [Brachial] 98 Pulse Rate 69 Respiratory Rate 30 Blood Pressure [Right Arm] 182/78 Blood Pressure [Left Arm] 143/70 Blood Pressure 153/65 O2 Sat by Pulse Oximetry 96 Intake and Output: Intake & Output 07/14/21 07/15/21 07/16/21 07/17/21 11:59 11:59 11:59 11:59 Intake Total 1486 / 1486 1778 / 1778 2121 Output Total 1725 / 1725 1450 / 1450 Balance -239 / -239 328 / 328 2121 - Physical Exam Oriented: Normal Eyes: Normal Ear: Normal Nose: Normal Throat: Normal Respiratory: Generalized, Diminished Cardiovascular: Normal : Normal Auscultation: Bowel Sounds: Decreased Tenderness: Normal, Diffuse Skin: Normal Musculoskeletal: Normal Psychiatric: Normal Mood Description: Calm Affect: Normal Speech Pattern: Clear - Laboratory and Diagnostics Result Diagrams: 07/17/21 04:10 07/17/21 04:10 Labs: 07/16/21 11:20 Sputum - Expectorated Sputum - Final Laboratory WBC 19.9 X10^3/uL (3.6-10.0) H 07/16/21 04:00 RBC 3.82 X10^6/uL (3.5-5.4) 07/16/21 04:00 Hgb 10.8 g/dL (12.0-16.0) L 07/16/21 04:00 Hct 32.4 % (36.0-47.0) L 07/16/21 04:00 MCV 84.7 fL (80.0-100.0) 07/16/21 04:00 MCH 28.2 pg (27.0-34.0) 07/16/21 04:00 MCHC 33.3 g/dL (33.0-35.0) 07/16/21 04:00 RDW 15.2 % (11.6-16.5) 07/16/21 04:00 Plt Count 602 X10^3/uL (150.0-450.0) H 07/16/21 04:00 Plt Count Comment Increased (ADEQUATE) A 07/13/21 03:45 MPV 8.7 fL (7.4-11.0) 07/16/21 04:00 Neut % (Auto) 86.3 % (42.0-75.0) H 07/16/21 04:00 Lymph % (Auto) 5.3 % (21.0-51.0) L 07/16/21 04:00 Banner % (Auto) 7.7 % (0.0-13.0) 07/16/21 04:00 Eos % (Auto) 0.4 % (0.9-2.9) L 07/16/21 04:00 Baso % (Auto) 0.3 % (0.2-1.0) 07/16/21 04:00 Neut # (Auto) 17.2 x10^3/uL (2.2-4.8) H 07/16/21 04:00 Lymph # (Auto) 1.0 X10^3/uL (1.3-2.9) L 07/16/21 04:00 Banner # (Auto) 1.5 x10^3/uL (0.3-0.8) H 07/16/21 04:00 Eos # (Auto) 0.1 x10^3/uL (0.0-0.2) 07/16/21 04:00 Baso # (Auto) 0.1 X10^3/uL (0.0-0.1) 07/16/21 04:00 Absolute Nucleated RBC 0.1 /100WBC 07/16/21 04:00 Total Counted 100 07/13/21 03:45 Neutrophils % (Manual) 79 % (39-76) H 07/13/21 03:45 Band Neutrophils % 5 % (0-10) 07/13/21 03:45 Lymphocytes % (Manual) 8 % (13-43) L 07/13/21 03:45 Monocytes % (Manual) 5 % (4-9) 07/13/21 03:45 Eosinophils % (Manual) 3 % (0-6) 07/13/21 03:45 Plt Morphology Comment Normal (NORMAL) 07/13/21 03:45 RBC Morphology Normal (NORMAL) 07/13/21 03:45 Hypochromasia Slight A 07/12/21 04:37 Target Cells Present 07/12/21 04:37 D-Dimer 7.20 ug/ml (0.0-0.57) H* 07/10/21 14:35 Sodium 139 mmol/L (136-145) 07/16/21 04:00 Corrected Sodium 139 mmol/L (136-145) 07/16/21 04:00 Potassium 3.8 mmol/L (3.5-5.1) 07/16/21 04:00 Chloride 104 mmol/L (98-107) 07/16/21 04:00 Carbon Dioxide 27.5 mmol/L (21-32) 07/16/21 04:00 BUN 47 mg/dL (7-18) H 07/16/21 04:00 Creatinine 1.06 mg/dL (0.55-1.02) H 07/16/21 04:00 Est GFR (MDRD) Af Amer > 60 (>60) 07/16/21 04:00 Est GFR (MDRD) Non-Af 53 (>60) L 07/16/21 04:00 Glucose 117 mg/dL (65-99) H 07/16/21 04:00 Lactic Acid 0.9 mmol/L (0.4-2.0) 07/16/21 07:42 Calcium 8.5 mg/dL (8.5-10.1) 07/16/21 04:00 Corrected Calcium 9.1 mg/dL (8.5-10.1) 07/16/21 04:00 Magnesium 2.1 mg/dL (1.7-2.9) 07/15/21 04:05 Iron 48 ug/dL (50-175) L 07/16/21 04:00 Transferrin 149 mg/dL (202-364) L 07/16/21 04:00 Ferritin 632 ng/mL (8-252) H 07/16/21 04:00 Total Bilirubin 0.70 mg/dL (0.2-1.0) 07/16/21 04:00 AST 17 Units/L (15-37) 07/16/21 04:00 ALT 25 Units/L (12-78) 07/16/21 04:00 Alkaline Phosphatase 140 Units/L (46-116) H 07/16/21 04:00 Creatine Kinase 91 Units/L (26-192) 07/12/21 04:37 CK-MB (CK-2) 1.4 ng/mL (0-4.0) 07/12/21 04:37 CK/CKMB % Calc 1.5 % (<4) 07/12/21 04:37 Troponin I High Sens 26.8 ng/L (4.0-60.0) 07/16/21 07:42 C-Reactive Protein 64.50 mg/L (0-3.0) H 07/16/21 04:00 B-Natriuretic Peptide 625 pg/mL (0-79) H* 07/16/21 04:00 Total Protein 5.5 g/dL (6.4-8.2) L 07/16/21 04:00 Albumin 3.2 g/dL (3.4-5.0) L 07/16/21 04:00 Globulin 2.3 g/dL (2.5-4.5) L 07/16/21 04:00 Albumin/Globulin Ratio 1.4 Ratio (1.1-2.1) 07/16/21 04:00 Amylase 35 Units/L (25-115) 07/06/21 22:34 Lipase 52 Units/L (73-393) L 07/06/21 22:34 Vitamin B12 > 2000 pg/mL (193-986) H 07/16/21 04:00 Folate 7.5 ng/mL (>8.6) L 07/16/21 04:00 Specimen Type Catherized urine 07/11/21 11:25 Urine Color Yellow (YELLOW) 07/11/21 11:25 Urine Appearance Clear (CLEAR) 07/11/21 11:25 Urine pH 6.0 (5.0 - 8.0) 07/11/21 11:25 Ur Specific Bassett 1.015 (1.000-1.030) 07/11/21 11:25 Urine Protein 1+ (NEGATIVE) 07/11/21 11:25 Urine Glucose (UA) Negative (NEGATIVE) 07/11/21 11:25 Urine Ketones Negative (NEGATIVE) 07/11/21 11:25 Urine Blood Negative (NEGATIVE) 07/11/21 11:25 Urine Nitrite Negative (NEGATIVE) 07/11/21 11:25 Urine Bilirubin Negative (NEGATIVE) 07/11/21 11:25 Urine Urobilinogen Normal (NORMAL) 07/11/21 11:25 Ur Leukocyte Esterase Negative (NEGATIVE) 07/11/21 11:25 Urine RBC 0-2 /HPF (0-3) 07/11/21 11:25 Urine WBC 0-2 /HPF (0-5) 07/11/21 11:25 Ur Squamous Epith Cells Rare /HPF (NEGATIVE) 07/11/21 11:25 Amorphous Sediment Trace /HPF (NEGATIVE) 07/07/21 14:55 Urine Bacteria Negative /HPF (NEGATIVE) 07/11/21 11:25 Ur Culture Indicated? No/not indicated 07/11/21 11:25 Digoxin 0.51 ng/mL (0.9-2) L 07/13/21 03:45 SARS-CoV-2 (PCR) Negative (NEGATIVE) 07/07/21 00:32 Tissue Pathology To follow 07/08/21 09:55 Blood Type O POSITIVE 07/13/21 15:07 Antibody Screen Negative 07/13/21 15:07 Crossmatch See Detail 07/13/21 15:07 - Plan (1) Pneumonia Status: Acute Qualifiers: Pneumonia type: due to unspecified organism Laterality: right Lung location: lower lobe of lung Qualified Code(s): J18.9 - Pneumonia, unspecified organism Plan: ALBUMIN 25% IV DAILY, MEROPENEM IV, LEVAQUIN 500MG IV DAILY, CARDIZEM 360MG PO DAILY, METOPROLOL 25MG DAILY, LASIX 40MG IV Q12H PRN, THE POTASSIUM AND MAGNESIUM PROTOCOLS, LISINOPRIL 20MG PO BID, ELIQUIS 2.5MG PO BID, RESTORIL 30MG PO HS, PAXIL 20MG PO DAILY, ZOFRAN 4MG SL Q6H PRN, PROTONIX 40MG PO DAILY, APRESOLINE 10MG IV Q6H PRN, KLONOPIN 0.5MG PO DAILY (2) S/P laparoscopic cholecystectomy Status: Acute (3) Pleural effusion Status: Acute (4) New onset atrial fibrillation Status: Acute (5) Pulmonary hypertension Status: Acute (6) Shortness of breath Status: Acute (7) Anemia Status: Acute Qualifiers: Anemia type: unspecified type Qualified Code(s): D64.9 - Anemia, unspecified (8) Hyponatremia Status: Resolved (9) JESUS (acute kidney injury) Status: Resolved (10) HTN (hypertension) Status: Chronic Qualifiers: Hypertension type: primary hypertension Qualified Code(s): I10 - Essential (primary) hypertension
[2021-07-16] MEDS ORDERED: FORTAZ or TAZICEF VIAL INJ 1 G in NS 100 ML IV 100 ML IV SCH (21:00)
[2021-07-16] MEDS: RESTORIL CAP 15 MG PO SCH (21:38)
--- NOTE | 2021-07-17 | NOTE.SOAP ---
Soap Note Note for Day of Date of Exam: 07/16/21 Subjective Data Subjective Data: 81 year old female well-known to [place] status post laparoscopic cholecystectomy for acute cholecystitis and cholelithiasis . She had a Dash Martinez drain in place which was discontinued after several days. Her post- operative course has been Complicated by atrial fibrillation with rapid ventricular right now controlled with cardiazem and beta meggan. She continues to have a poor appetite. CT scan of the abdomen shows evidence of bilateral lower lobe infiltrate /consolidation as well as area of inflammation in the gallbladder fossa which is to be expected with one small area of air. Radiologist interpreted this as possible abscess however I doubt that based on the fact a drain was in place and the drain itself could account fot this small amount of air . That being said ,I think for completeness this area should be drain percutaneously by Radiology. I will discuss this with Dr. Coy in the morning. Objective Data Temperature: 97.4 F Pulse Rate: 80 Respiratory Rate: 30 Blood Pressure: 173/72 O2 Sat by Pulse Oximetry: 96 Objective Data: No peritoneal signs of the abdomen. WBC=19.9 Assessment Assessment: Continues to do poorly after laparoscopic cholecystectomy. Plan Plan: Will continue antibiotics. Recommend ct-guided/us drainage of the area in question in the gallbladder fossa. Will discuss with Doctor Coy in the morning
[2021-07-17 04:55] LABS: BASOPHILS # (AUTO) 0.1 X10^3/uL (0.0-0.1); BASOPHILS % (AUTO) 0.3 % (0.2-1.0); EOSINOPHILS # (AUTO) 0.1 x10^3/uL (0.0-0.2); EOSINOPHILS % (AUTO) 0.3 % (0.9-2.9); HEMOGLOBIN 10.2 g/dL (12.0-16.0); LYMPHOCYTES # (AUTO) 0.8 X10^3/uL (1.3-2.9); LYMPHOCYTES % (AUTO) 4.7 % (21.0-51.0); MEAN CORPUSCULAR HEMOGLOBIN 28.8 pg (27.0-34.0); MEAN CORPUSCULAR VOLUME 84.7 fL (80.0-100.0); MEAN PLATELET VOLUME 8.6 fL (7.4-11.0); MONOCYTES # (AUTO) 1.6 x10^3/uL (0.3-0.8); MONOCYTES % (AUTO) 9.4 % (0.0-13.0); NEUTROPHILS # (AUTO) 14.8 x10^3/uL (2.2-4.8); NEUTROPHILS % (AUTO) 85.3 % (42.0-75.0); RED BLOOD COUNT 3.54 X10^6/uL (3.5-5.4); WHITE BLOOD COUNT 17.3 X10^3/uL (3.6-10.0)
[2021-07-17 05:14] LABS: ALANINE AMINOTRANSFERASE 20 Units/L (12-78); ALBUMIN 3.2 g/dL (3.4-5.0); ALKALINE PHOSPHATASE 124 Units/L (46-116); ASPARTATE AMINO TRANSFERASE 16 Units/L (15-37); BLOOD UREA NITROGEN 40 mg/dL (7-18); CALCIUM 8.6 mg/dL (8.5-10.1); CARBON DIOXIDE 26.6 mmol/L (21-32); CHLORIDE 104 mmol/L (98-107); COR CA(FOR HYPOALB) 9.2 mg/dL (8.5-10.1); CREATININE 1.03 mg/dL (0.55-1.02); SODIUM 138 mmol/L (136-145); TOTAL PROTEIN 5.5 g/dL (6.4-8.2); eGFR NON BLACK RACES 55 (>60)
[2021-07-17 05:18] LABS: PLATELET MORPHOLOGY COMMENT NORMAL (NORMAL)
[2021-07-17] MEDS: MERREM VIAL 1 G in NS 100 ML IV 100 ML IV SCH ×3 (05:52→22:00)
[2021-07-17] MEDS: XOPENEX 1.25 MG/3 ML NEBULE NEB SCH ×3 (06:00→21:26)
--- NOTE | 2021-07-17 06:04 | RAD ---
HISTORYShortness of breathSTUDYChest AP [id number] t size is normal. Amanda are normal. Lungs are well inflated. Upper lung patrick remain clear. Once again noted is haziness in the right lung base likely due to residual pleural effusion and infiltrate and unchanged. Increased density retrocardiac area left lower lobe obscuring the left hemidiaphragm also unchanged and possibly on the basis of atelectasis, infiltrate or pleural fluid or combination. Bony thorax is unremarkable.IMPRESSIONNo significant change from the prior examinationElectronically signed by: HUSAM GRANDE (Jul 17, 2021 06:03:12)
[2021-07-17] MEDS ORDERED: ZESTRIL TAB 20 MG ONE (09:38)
[2021-07-17] MEDS: LEVAQUIN PREMIX IV 250 MG 250 MG/50 ML BAG IV SCH (09:46)
[2021-07-17] MEDS: VSL#3 PO SCH (09:46)
[2021-07-17] MEDS: ALBUMIN HUMAN 25%- 100 ML 100 ML IV SCH (09:47)
[2021-07-17] MEDS: ESTRACE PO SCH (09:47)
[2021-07-17] MEDS: PAXIL PO SCH (09:48)
[2021-07-17] MEDS: NYSTATIN POWDER TOP SCH ×2 (09:49→20:19)
[2021-07-17] MEDS: ELIQUIS PO SCH ×2 (09:49→20:20)
[2021-07-17] MEDS: CARDIZEM CD 360 MG 24-HR PO SCH (09:49)
[2021-07-17] MEDS: TRICOR TAB 145 MG PO SCH (09:50)
[2021-07-17] MEDS: APRESOLINE TAB 25 MG PO SCH ×4 (09:50→20:19)
[2021-07-17] MEDS: ZESTRIL TAB 20 MG PO SCH (09:50)
[2021-07-17] MEDS: PROTONIX TAB 40 MG PO SCH (09:51)
--- NOTE | 2021-07-17 10:07 | DR.CARD ---
Cardiology Consult Consultation for Day of: Date: 07/17/21 Chief Complaint Chief Complaint: Atrial Fibrillation Allergies Allergies Allergy/AdvReac Type Severity Reaction Status Date / Time codeine Allergy Verified 02/02/17 07:32 History of Present Illness History of Present Illness: Patient is an 81y F who was requested to have cardiac consult for postoperative atrial fibrillation rapid ventricular rates after cholecystectomy. She was placed on diltiazem, metoprolol, and began eliquis 5mg BID. She converted to NSR and has maintained since that time. Pt had inpatient echocardiogram showing normal EF 65%, dilated LA, mod-severe TR, RVSP 58.8. Blood pressures have been very elevated inpatient. She states she has not noticed elevated BP @ home. Prior to hospital stay she reported intermittent heart racing only present with exerting herself. No dizziness or syncope. No exertional chest pain. She reports having swelling in her feet an ankles. No PN D, orthopnea, or coughing. Past Medical History Past Medical History: Anxiety, Arthritis, Depression, Dyslipidemia, GERD and Hypertension Past Surgical History Surgical History: Appendectomy and Hysterectomy Family History Family Medical History: Diabetes Mellitus, Cancer, [place], Heart Failure and Hypertension Social History Does patient currently use any type of tobacco product: No Have you used tobacco products in the last 12 months: No Type of Tobacco Use: None Does any household member use tobacco: No Alcohol Use: None Drug Use: None Medications Home Medications: codeine Allergy (Verified 02/02/17 07:32) CONTINUE taking the following medications clonazepam 0.5 mg PO DAILY PRN 07/07/21 [History] fenofibrate nanocrystallized 145 mg PO DAILY 07/07/21 [History] lisinopril 10 mg PO DAILY 07/07/21 [History] ondansetron 4 mg TRANSLINGUAL Q8H PRN 07/07/21 [History] pantoprazole 40 mg PO DAILY 07/07/21 [History] paroxetine HCl 60 mg PO DAILY 07/07/21 [History] temazepam 30 mg PO HS 07/07/21 [History] estradiol 0.5 mg PO DAILY 07/10/21 [History] Review of Systems Constitutional: No Symptoms Reported Eyes: No Symptoms Reported ENT: No Symptoms Reported Respiratory: No Symptoms Reported Cardiovascular: Edema; denies Chest Pain, Palpitations, Orthopnea, Paroxysmal Noc. Dyspnea and Light Headedness Gastrointestinal: No Symptoms Reported Genitourinary: No Symptoms Reported Musculoskeletal: No Symptoms Reported Neurological: No Symptoms Reported Physical Exam Vital Signs: Temperature 97.9 F Pulse Rate 107 Respiratory Rate 18 Blood Pressure [Left Arm] 189/77 Blood Pressure 125/60 O2 Sat by Pulse Oximetry 92 Oriented: Normal Eyes: Normal Ear: Normal Respiratory: Clear Throughout Cardiovascular: Normal, Edema and Other (+ JVD) Auscultation: Bowel Sounds: Normal Palpation: Normal Skin: Normal Musculoskeletal: Normal Psychiatric: Normal Mood Description: Calm Speech Pattern: Clear Medical Decision Making Reason for Consult: Cardiac Dysrhythmia EKG Results: Sinus Rhythm Labs reviewed: Yes Radiology Reviewed: Yes Plan Plan: 1. Afib RVR a. s/p cholecystectomy with rapid rates up to 160s b. converted on diltiazem and metoprolol c. NSR on rhythm strips today d. Chadsvasc score = 4: age, sex, HTN e. continue current medications, follow up outpatient 2. HFpEF/pulmonary hypertension a. Echocardiogram 07/16/21: Normal EF, Moderate MR, Mod-Severe TR, Mild MS, RVSP 58 b. mulitfactorial - HFpEF, HTN, volume overload c. CXR small bilateral pleural effusions vs infiltrates d. begin lasix 40mg BID e. consider outpatient sleep study f. control blood pressures g. on BB/CLAIR - will optimize medication by changing Cardizem to carvedilol 25m BID, stop lisinopril today and begin entresto 49/51mg BID starting 36 hours after stopping lisinopril, continue hydralazine 100mg QID, begin isosorbide 30 mg daily e. follow up outpatient within the next two weeks 3. HTN a. very elevated inpatient b. needs diuresis, slow IVF c. begin lasix 40mg BID d. med change as above
[2021-07-17] MEDS: LASIX IVP PRN (11:21)
[2021-07-17] MEDS: COREG TAB 25 MG PO SCH ×2 (13:47→20:21)
[2021-07-17] MEDS: IMDUR PO SCH (13:48)
--- NOTE | 2021-07-17 14:12 | PCM.PROG ---
Progress Note - Progress Note for Day of Date of Exam: 07/17/21 - Subjective Subjective: IS A 81 YEAR OLD PATIENT OF OURS. SHE IS CURRENTLY INPATIENT STATUS FOR TREATMENT OF ACUTE RENAL FAILURE, DEHYDRATION, ACUTE CHOLECYSTITIS, ANEMIA, NEW ONSET A-FIB, PLEURAL EFFUSION, PNEUMONIA, AND PULMONARY HYPERTENSION. SHE HAS RECEIVED TWO UNITS OF PRBC SINCE ADMISSION. SHE IS DAY 9 S/P LAPAROSCOPIC CHOLECYSTECTOMY. SHE REMAINS IN THE INTENSIVE CARE UNIT. SHE HAS BEEN HYPERTENSIVE FOR SEVERAL DAYS DESPITE MED CHANGES. HER HEARTRATE HAS BEEN STABLE THROUGHOUT HE NIGHT. TODAY, SHE CONTINUES TO REPORT WEAKNESS, DECREASED APPETITE, NAUSEA, AND SHORTNESS OF BREATH AT TIMES. SHE DENIES ANY ABDOMEN OR CHEST PAIN. ON EXAMINATION, REGISTERED NURSING PROFESSOR SHOWS ATRIAL FIBRILLATION WITH HR 125BPM FOR THE FIRST FEW MINUTES THAT WE ARE IN THE ROOM, PATIENT EVENTUALLY CONVERTS TO NORMAL SINUS RHYTHM WITH HR IN THE 80s WHILE WE ARE EXAMINING HER. BILATERAL LUNGS NOTED WITH DIMINISHED LUNG SOUNDS THROUGHOUT. ABDOMEN IS ROUND, SOFT, AND NON-TENDER WITH HYPOACTIVE BOWEL SOUNDS NOTED IN ALL QUADRANTS. SHE ADMITS TO HAVING A NORMAL BOWEL MOVEMENT YESTERDAY. HER VITALS THIS MORNING ARE: 97.4-71-29-95%-173/96. LABS WERE OBTAINED. WBC 17.3, RBC 3.54, HGB 10.2, HCT 30.0, PLT COUNT 602, SODIUM 138, POTASSIUM 3.7, CHLORIDE 104, BUN 40, CREATININE 1.03, GLUCOSE 103, CALCIUM 8.3, CRP 41.90, BNP 424, TOTAL PROTEIN 5.5, ALBUMIN 3.2. A CHEST XRAY WAS OBTAINED AND REVEALED NO SIGNIFICANT CHANGE. A REPEAT ABDOMEN/PELVIS CT WAS DONE YESTERDAY AND REVEALED: 1. Mixed attenuation area near the gallbladder fossa with small focus of gas is concerning for abscess, with adjacent stranding. Postoperative hematoma or seroma is not entirely excluded. Bile leak cannot be completely excluded. Small pocket of fluid in the right pericolic gutter suspected, with abscess possible.2. Lack of contrast limits sensitivity3. Distended urinary bladder with gas. Correlate clinically for signs of infection and consider voiding or decompression 4. Prominent heart size with moderate bilateral effusions. AN ECHO WAS OBTAINED ON 07/12/21. IT REVEALED AN EJECTION FRACTION OF 65%, DILATED LEFT ATRIAL CAVITY, STRUCTURALLY NORMAL TRICUSPID VALVE WITH MODERATE TO SEVERE REGURGITATION, SEVERE PULMONARY HYPERTENSION. SHE IS CURRENTLY RECEIVING ALBUMIN 25% IV DAILY, MEROPENEM IV, LEVAQUIN IV, CARDIZEM 360MG PO DAILY, METOPROLOL 25MG DAILY, LASIX 40MG IV Q12H PRN, THE POTASSIUM AND MAGNESIUM PROTOCOLS, LISINOPRIL 20MG PO BID, ELIQUIS 2.5MG PO BID, RESTORIL 30MG PO HS, PAXIL 20MG PO DAILY, ZOFRAN 4MG SL Q6H PRN, PROTONIX 40MG PO DAILY, APRESOLINE 10MG IV Q6H PRN, KLONOPIN 0.5MG PO DAILY. WILL BE HERE TODAY. WE WILL HAVE HIM CONSULT WITH THE PATIENT DUE TO THE NEW ONSET A-FIB AND SEVERE PULMONARY HYPERTENSION. HAS BEEN MADE AWARE OF ABDOMEN/PELVIS CT RESULTS. OTHERWISE, WE PLAN TO FOLLOW-UP WITH AM LABS AND CHEST XRAY AND CONTINUE TO MONITOR. TIME SPENT ON CLINICAL ASSESSMENT, REVIEWING LABS AND IMAGING, DECISION MAKING, AND DOCUMENTATION GREATER THAN 45 MINUTES. - Past Medical Family Social History Past Med/Fam/Surg Hx: No changes since H&P Allergies: Allergies codeine Allergy (Verified 02/02/17 07:32) - Review of Systems ROS: No change since H&P - Vital Signs and I&O's Vital Signs: Temperature 97.4 F Pulse Rate [Brachial] 98 Pulse Rate 81 Respiratory Rate 38 Blood Pressure [Right Arm] 182/78 Blood Pressure [Left Arm] 143/70 Blood Pressure 169/69 O2 Sat by Pulse Oximetry 98 Intake and Output: Intake & Output 07/15/21 07/16/21 07/17/21 07/18/21 11:59 11:59 11:59 11:59 Intake Total 1778 / 1778 2121 1892 / 1892 Output Total 1450 / 1450 200 / 200 Balance 328 / 328 2121 1692 / 1692 - Physical Exam Oriented: Normal Eyes: Normal Ear: Normal Nose: Normal Throat: Normal Respiratory: Generalized, Diminished Cardiovascular: Normal, Edema, Other (+ JVD) : Normal Auscultation: Bowel Sounds: Normal Palpation: Normal Tenderness: Normal, Diffuse Skin: Normal Musculoskeletal: Normal Psychiatric: Normal Mood Description: Calm Affect: Normal Speech Pattern: Clear - Laboratory and Diagnostics Result Diagrams: 07/17/21 04:10 07/17/21 04:10 Labs: 07/16/21 11:20 Sputum - Expectorated Sputum Sputum Culture - Preliminary 07/16/21 11:20 Sputum - Expectorated Sputum - Final Laboratory WBC 17.3 X10^3/uL (3.6-10.0) H 07/17/21 04:10 RBC 3.54 X10^6/uL (3.5-5.4) 07/17/21 04:10 Hgb 10.2 g/dL (12.0-16.0) L 07/17/21 04:10 Hct 30.0 % (36.0-47.0) L 07/17/21 04:10 MCV 84.7 fL (80.0-100.0) 07/17/21 04:10 MCH 28.8 pg (27.0-34.0) 07/17/21 04:10 MCHC 34.0 g/dL (33.0-35.0) 07/17/21 04:10 RDW 15.0 % (11.6-16.5) 07/17/21 04:10 Plt Count 602 X10^3/uL (150.0-450.0) H 07/17/21 04:10 Plt Count Comment Increased (ADEQUATE) A 07/17/21 04:10 MPV 8.6 fL (7.4-11.0) 07/17/21 04:10 Neut % (Auto) 85.3 % (42.0-75.0) H 07/17/21 04:10 Lymph % (Auto) 4.7 % (21.0-51.0) L 07/17/21 04:10 Shannon % (Auto) 9.4 % (0.0-13.0) 07/17/21 04:10 Eos % (Auto) 0.3 % (0.9-2.9) L 07/17/21 04:10 Baso % (Auto) 0.3 % (0.2-1.0) 07/17/21 04:10 Neut # (Auto) 14.8 x10^3/uL (2.2-4.8) H 07/17/21 04:10 Lymph # (Auto) 0.8 X10^3/uL (1.3-2.9) L 07/17/21 04:10 Shannon # (Auto) 1.6 x10^3/uL (0.3-0.8) H 07/17/21 04:10 Eos # (Auto) 0.1 x10^3/uL (0.0-0.2) 07/17/21 04:10 Baso # (Auto) 0.1 X10^3/uL (0.0-0.1) 07/17/21 04:10 Absolute Nucleated RBC 0.1 /100WBC 07/17/21 04:10 Total Counted 100 07/17/21 04:10 Neutrophils % (Manual) 92 % (39-76) H 07/17/21 04:10 Band Neutrophils % 5 % (0-10) 07/13/21 03:45 Lymphocytes % (Manual) 5 % (13-43) L 07/17/21 04:10 Monocytes % (Manual) 3 % (4-9) L 07/17/21 04:10 Eosinophils % (Manual) 3 % (0-6) 07/13/21 03:45 Plt Morphology Comment Normal (NORMAL) 07/17/21 04:10 RBC Morphology Normal (NORMAL) 07/17/21 04:10 Hypochromasia Slight A 07/12/21 04:37 Target Cells Present 07/12/21 04:37 D-Dimer 7.20 ug/ml (0.0-0.57) H* 07/10/21 14:35 Sodium 138 mmol/L (136-145) 07/17/21 04:10 Corrected Sodium TNP 07/17/21 04:10 Potassium 3.7 mmol/L (3.5-5.1) 07/17/21 04:10 Chloride 104 mmol/L (98-107) 07/17/21 04:10 Carbon Dioxide 26.6 mmol/L (21-32) 07/17/21 04:10 BUN 40 mg/dL (7-18) H 07/17/21 04:10 Creatinine 1.03 mg/dL (0.55-1.02) H 07/17/21 04:10 Est GFR (MDRD) Af Amer > 60 (>60) 07/17/21 04:10 Est GFR (MDRD) Non-Af 55 (>60) L 07/17/21 04:10 Glucose 103 mg/dL (65-99) H 07/17/21 04:10 Lactic Acid 0.9 mmol/L (0.4-2.0) 07/16/21 07:42 Calcium 8.6 mg/dL (8.5-10.1) 07/17/21 04:10 Corrected Calcium 9.2 mg/dL (8.5-10.1) 07/17/21 04:10 Magnesium 2.1 mg/dL (1.7-2.9) 07/15/21 04:05 Iron 48 ug/dL (50-175) L 07/16/21 04:00 Transferrin 149 mg/dL (202-364) L 07/16/21 04:00 Ferritin 632 ng/mL (8-252) H 07/16/21 04:00 Total Bilirubin 0.70 mg/dL (0.2-1.0) 07/17/21 04:10 AST 16 Units/L (15-37) 07/17/21 04:10 ALT 20 Units/L (12-78) 07/17/21 04:10 Alkaline Phosphatase 124 Units/L (46-116) H 07/17/21 04:10 Creatine Kinase 91 Units/L (26-192) 07/12/21 04:37 CK-MB (CK-2) 1.4 ng/mL (0-4.0) 07/12/21 04:37 CK/CKMB % Calc 1.5 % (<4) 07/12/21 04:37 Troponin I High Sens 26.8 ng/L (4.0-60.0) 07/16/21 07:42 C-Reactive Protein 41.90 mg/L (0-3.0) H 07/17/21 04:10 B-Natriuretic Peptide 424 pg/mL (0-79) H 07/17/21 04:10 Total Protein 5.5 g/dL (6.4-8.2) L 07/17/21 04:10 Albumin 3.2 g/dL (3.4-5.0) L 07/17/21 04:10 Globulin 2.3 g/dL (2.5-4.5) L 07/17/21 04:10 Albumin/Globulin Ratio 1.4 Ratio (1.1-2.1) 07/17/21 04:10 Amylase 35 Units/L (25-115) 07/06/21 22:34 Lipase 52 Units/L (73-393) L 07/06/21 22:34 Vitamin B12 > 2000 pg/mL (193-986) H 07/16/21 04:00 Folate 7.5 ng/mL (>8.6) L 07/16/21 04:00 Specimen Type Catherized urine 07/11/21 11:25 Urine Color Yellow (YELLOW) 07/11/21 11:25 Urine Appearance Clear (CLEAR) 07/11/21 11:25 Urine pH 6.0 (5.0 - 8.0) 07/11/21 11:25 Ur Specific [place] 1.015 (1.000-1.030) 07/11/21 11:25 Urine Protein 1+ (NEGATIVE) 07/11/21 11:25 Urine Glucose (UA) Negative (NEGATIVE) 07/11/21 11:25 Urine Ketones Negative (NEGATIVE) 07/11/21 11:25 Urine Blood Negative (NEGATIVE) 07/11/21 11:25 Urine Nitrite Negative (NEGATIVE) 07/11/21 11:25 Urine Bilirubin Negative (NEGATIVE) 07/11/21 11:25 Urine Urobilinogen Normal (NORMAL) 07/11/21 11:25 Ur Leukocyte Esterase Negative (NEGATIVE) 07/11/21 11:25 Urine RBC 0-2 /HPF (0-3) 07/11/21 11:25 Urine WBC 0-2 /HPF (0-5) 07/11/21 11:25 Ur Squamous Epith Cells Rare /HPF (NEGATIVE) 07/11/21 11:25 Amorphous Sediment Trace /HPF (NEGATIVE) 07/07/21 14:55 Urine Bacteria Negative /HPF (NEGATIVE) 07/11/21 11:25 Ur Culture Indicated? No/not indicated 07/11/21 11:25 Digoxin 0.51 ng/mL (0.9-2) L 07/13/21 03:45 SARS-CoV-2 (PCR) Negative (NEGATIVE) 07/07/21 00:32 Tissue Pathology To follow 07/08/21 09:55 Blood Type O POSITIVE 07/13/21 15:07 Antibody Screen Negative 07/13/21 15:07 Crossmatch See Detail 07/13/21 15:07 - Plan (1) Pneumonia Status: Acute Qualifiers: Pneumonia type: due to unspecified organism Laterality: right Lung location: lower lobe of lung Qualified Code(s): J18.9 - Pneumonia, unspecified organism Plan: ALBUMIN 25% IV DAILY, MEROPENEM IV, LEVAQUIN 500MG IV DAILY, CARDIZEM 360MG PO DAILY, METOPROLOL 25MG DAILY, LASIX 40MG IV Q12H PRN, THE POTASSIUM AND MAGNESIUM PROTOCOLS, LISINOPRIL 20MG PO BID, ELIQUIS 2.5MG PO BID, RESTORIL 30MG PO HS, PAXIL 20MG PO DAILY, ZOFRAN 4MG SL Q6H PRN, PROTONIX 40MG PO DAILY, APRESOLINE 10MG IV Q6H PRN, KLONOPIN 0.5MG PO DAILY (2) S/P laparoscopic cholecystectomy Status: Acute (3) Pleural effusion Status: Acute (4) New onset atrial fibrillation Status: Acute (5) Pulmonary hypertension Status: Acute (6) Shortness of breath Status: Acute (7) Anemia Status: Acute Qualifiers: Anemia type: unspecified type Qualified Code(s): D64.9 - Anemia, unspecified (8) Hyponatremia Status: Resolved (9) JESUS (acute kidney injury) Status: Resolved (10) HTN (hypertension) Status: Chronic Qualifiers: Hypertension type: primary hypertension Qualified Code(s): I10 - Essential (primary) hypertension
[2021-07-17] MEDS ORDERED: ATROPINE SULFATE IVP NR (16:00)
[2021-07-17] MEDS ORDERED: ATROPINE SULFATE ABBOJECT IVP NR (16:00)
[2021-07-17] MEDS: LASIX IVP SCH (18:00)
[2021-07-17] MEDS: ZOFRAN TAB 4 MG SL PRN (18:18)
[2021-07-17] MEDS: RESTORIL CAP 15 MG PO SCH (20:19)
[2021-07-17] MEDS: K-DUR TAB 20 MEQ PO PRN (20:29)
--- NOTE | 2021-07-17 23:39 | NOTE.SOAP ---
Soap Note Note for Day of Date of Exam: 07/17/21 Subjective Data Subjective Data: Patient feels better. Seen by Cardiology in lisinopril change to Entresto. Patient in sinus bradycardia chrism. Eating better. A febrile. Hypertension to be controlled better. Again I feel the CT scan findings of the gallbladder fossa is not consistent with abscess and she would benefit as much from IV antibiotics as drainage. In addition she would have to be transferred to another hospital for drainage. I discussed all these findings with the family and they agree to keep her here at this time and continue our present treatment. Dr Coy is aware Should she deteriorate we consider drainage at another time. Objective Data Temperature: 97.3 F Pulse Rate: 53 Respiratory Rate: 24 Blood Pressure: 130/63 O2 Sat by Pulse Oximetry: 100 Objective Data: Abdomen is benign and laparoscopic incisions are healing well. Assessment Assessment: Acute cholecystitis with cholelithiasis s/p laparoscopic cholecystectomy complicated by atrial fibrillation, pneumonia , failure to thrive and diastolic heart failure . Overall improving. Plan Plan: I have nothing to add at this time .
[2021-07-18 05:23] LABS: BASOPHILS # (AUTO) 0.1 X10^3/uL (0.0-0.1); BASOPHILS % (AUTO) 0.7 % (0.2-1.0); EOSINOPHILS # (AUTO) 0.1 x10^3/uL (0.0-0.2); EOSINOPHILS % (AUTO) 1.1 % (0.9-2.9); HEMATOCRIT 28.6 % (36.0-47.0); HEMOGLOBIN 9.6 g/dL (12.0-16.0); LYMPHOCYTES # (AUTO) 0.7 X10^3/uL (1.3-2.9); LYMPHOCYTES % (AUTO) 5.6 % (21.0-51.0); MEAN CORPUSCULAR HEMOGLOBIN 28.7 pg (27.0-34.0); MEAN CORPUSCULAR HGB CONC 33.5 g/dL (33.0-35.0); MEAN CORPUSCULAR VOLUME 85.8 fL (80.0-100.0); MONOCYTES # (AUTO) 1.4 x10^3/uL (0.3-0.8); NEUTROPHILS # (AUTO) 10.4 x10^3/uL (2.2-4.8); NEUTROPHILS % (AUTO) 81.6 % (42.0-75.0); RED BLOOD COUNT 3.34 X10^6/uL (3.5-5.4); WHITE BLOOD COUNT 12.7 X10^3/uL (3.6-10.0)
[2021-07-18] MEDS: XOPENEX 1.25 MG/3 ML NEBULE NEB SCH ×3 (05:33→20:44)
[2021-07-18 05:43] LABS: ALANINE AMINOTRANSFERASE 18 Units/L (12-78); ALBUMIN 3.2 g/dL (3.4-5.0); ALKALINE PHOSPHATASE 110 Units/L (46-116); ASPARTATE AMINO TRANSFERASE 29 Units/L (15-37); BLOOD UREA NITROGEN 39 mg/dL (7-18); CALCIUM 8.9 mg/dL (8.5-10.1); CARBON DIOXIDE 26.3 mmol/L (21-32); CHLORIDE 103 mmol/L (98-107); COR CA(FOR HYPOALB) 9.5 mg/dL (8.5-10.1); CREATININE 1.08 mg/dL (0.55-1.02); SODIUM 137 mmol/L (136-145); TOTAL PROTEIN 5.5 g/dL (6.4-8.2); eGFR NON BLACK RACES 52 (>60)
[2021-07-18] MEDS: MERREM VIAL 1 G in NS 100 ML IV 100 ML IV SCH ×3 (05:45→21:28)
--- NOTE | 2021-07-18 06:06 | RAD ---
HISTORYSOB Relevant Clinical InformationSTUDYCHEST, 1 [id number] trachea is midline. The cardiac silhouette is unremarkable. There is persistent haziness in the right lung base likely due to small pleural effusion. There is also blunting of the left costophrenic angle due to small effusion.. The bony thorax is unremarkable.IMPRESSIONSmall bilateral pleural effusions. No significant change from previous 07/17/2021.Electronically signed by: Marvin Zapata (Jul 18, 2021 06:05:21)
[2021-07-18] MEDS: LEVAQUIN PREMIX IV 250 MG 250 MG/50 ML BAG IV SCH (09:30)
[2021-07-18] MEDS: LASIX IVP SCH ×2 (09:30→17:39)
[2021-07-18] MEDS: ELIQUIS PO SCH ×2 (09:31→21:29)
[2021-07-18] MEDS: PAXIL PO SCH (09:31)
[2021-07-18] MEDS: APRESOLINE TAB 25 MG PO SCH ×4 (09:31→21:28)
[2021-07-18] MEDS: VSL#3 PO SCH (09:32)
[2021-07-18] MEDS: PROTONIX TAB 40 MG PO SCH (09:32)
[2021-07-18] MEDS: IMDUR PO SCH (09:32)
[2021-07-18] MEDS: TRICOR TAB 145 MG PO SCH (09:32)
[2021-07-18] MEDS: NYSTATIN POWDER TOP SCH ×2 (09:33→21:29)
[2021-07-18] MEDS: ESTRACE PO SCH (09:44)
[2021-07-18] MEDS: COREG TAB 25 MG PO SCH ×2 (09:45→20:29)
[2021-07-18] MEDS: DIFLUCAN 200 MG IV PREMIX* 200 MG/100 ML BAG IV SCH (11:40)
[2021-07-18] MEDS ORDERED: ENTRESTO 24/26 MG TAB PO SCH (21:00)
[2021-07-18] MEDS: RESTORIL CAP 15 MG PO SCH (21:29)
--- NOTE | 2021-07-18 22:04 | NOTE.SOAP ---
Soap Note Note for Day of Date of Exam: 07/18/21 Subjective Data Subjective Data: S/P laparoscopic cholecystectomy . Doing much better. Objective Data Temperature: 97.7 F Pulse Rate: 68 Respiratory Rate: 37 Blood Pressure: 173/73 O2 Sat by Pulse Oximetry: 97 Objective Data: Benign abdomen Assessment Assessment: As above. Plan Plan: Patient may be discharged from my standpoint at any time. F/U with me in one week.
[2021-07-19 04:52] LABS: BASOPHILS # (AUTO) 0.1 X10^3/uL (0.0-0.1); BASOPHILS % (AUTO) 0.6 % (0.2-1.0); EOSINOPHILS # (AUTO) 0.3 x10^3/uL (0.0-0.2); EOSINOPHILS % (AUTO) 2.2 % (0.9-2.9); HEMATOCRIT 35.5 % (36.0-47.0); HEMOGLOBIN 11.7 g/dL (12.0-16.0); LYMPHOCYTES % (AUTO) 7.6 % (21.0-51.0); MEAN CORPUSCULAR HEMOGLOBIN 28.3 pg (27.0-34.0); MEAN CORPUSCULAR HGB CONC 32.9 g/dL (33.0-35.0); MEAN CORPUSCULAR VOLUME 86.1 fL (80.0-100.0); MEAN PLATELET VOLUME 8.5 fL (7.4-11.0); MONOCYTES # (AUTO) 1.8 x10^3/uL (0.3-0.8); MONOCYTES % (AUTO) 14.3 % (0.0-13.0); NEUTROPHILS # (AUTO) 9.5 x10^3/uL (2.2-4.8); NEUTROPHILS % (AUTO) 75.3 % (42.0-75.0); RED BLOOD COUNT 4.12 X10^6/uL (3.5-5.4); RED CELL DISTRIBUTION WIDTH 15.7 % (11.6-16.5); WHITE BLOOD COUNT 12.6 X10^3/uL (3.6-10.0)
[2021-07-19 05:07] LABS: ALANINE AMINOTRANSFERASE 22 Units/L (12-78); ALBUMIN 3.2 g/dL (3.4-5.0); ALKALINE PHOSPHATASE 126 Units/L (46-116); ASPARTATE AMINO TRANSFERASE 22 Units/L (15-37); BLOOD UREA NITROGEN 26 mg/dL (7-18); CALCIUM 8.7 mg/dL (8.5-10.1); CHLORIDE 101 mmol/L (98-107); COR CA(FOR HYPOALB) 9.3 mg/dL (8.5-10.1); CREATININE 1.03 mg/dL (0.55-1.02); SODIUM 140 mmol/L (136-145); TOTAL PROTEIN 5.6 g/dL (6.4-8.2); eGFR NON BLACK RACES 55 (>60)
[2021-07-19] MEDS: MERREM VIAL 1 G in NS 100 ML IV 100 ML IV SCH (05:43)
[2021-07-19] MEDS: MAGNESIUM SULFATE 1 GRAM/100 mL PREMIX 1 G/100 ML BAG IV PRN (05:46)
[2021-07-19] MEDS: K-DUR TAB 20 MEQ PO PRN (05:59)
[2021-07-19] MEDS: XOPENEX 1.25 MG/3 ML NEBULE NEB SCH (06:13)
--- NOTE | 2021-07-19 06:38 | RAD ---
HISTORYShortness of breathSTUDYChest AP [id number] t size is normal. Amanda are normal. Lungs are well inflated. Upper lung patrick remain clear. Haziness in the right lung base is likely due to residual pleural effusion and possibly some infiltrate and is unchanged. Increased density retrocardiac area left lower lobe obscuring the left hemidiaphragm also unchanged and possibly on the basis of atelectasis, infiltrate, or pleural effusion. Bony thorax is unremarkable.IMPRESSIONNo significant change from the prior examinationElectronically signed by: HUSAM GRANDE (Jul 19, 2021 06:36:52)
[2021-07-19] MEDS ORDERED: COREG TAB 12.5 MG PO SCH (07:00)
[2021-07-19] MEDS ORDERED: ENTRESTO 24/26 MG TAB PO SCH (07:00)
[2021-07-19] MEDS: DIFLUCAN 200 MG IV PREMIX* 200 MG/100 ML BAG IV SCH (09:56)
[2021-07-19] MEDS: LASIX IVP SCH (09:57)
[2021-07-19] MEDS: ESTRACE PO SCH (09:57)
[2021-07-19] MEDS: VSL#3 PO SCH (09:58)
[2021-07-19] MEDS: PAXIL PO SCH (09:58)
[2021-07-19] MEDS: APRESOLINE TAB 25 MG PO SCH ×2 (09:58→12:37)
[2021-07-19] MEDS: ELIQUIS PO SCH (10:01)
[2021-07-19] MEDS: TRICOR TAB 145 MG PO SCH (10:01)
[2021-07-19] MEDS: PROTONIX TAB 40 MG PO SCH (10:03)
[2021-07-19] MEDS: IMDUR PO SCH (10:04)
[2021-07-19] MEDS: LEVAQUIN PREMIX IV 250 MG 250 MG/50 ML BAG IV SCH (10:05)
[2021-07-19] MEDS: NYSTATIN POWDER TOP SCH (10:11)
[2021-07-19 13:49] VITALS: BP 142/75
== END 2021-07-19 14:58 | disposition home or self-care (01) | DRG 444 ==
LOC: ER 21:01 → MED/SURG 21:01 → OBSVTOIN 07-07 00:49 → MED/SURG 07-07 01:23 → ICU 07-10 14:43
PROVIDERS: ADMIT Internal Medicine; ATTEND Internal Medicine
DX: K80.00 Calculus of gallbladder with acute cholecystitis without obstruction; I48.91 Unspecified atrial fibrillation; I27.20 Pulmonary hypertension, unspecified; Z20.822 Contact with and (suspected) exposure to COVID-19; R94.31 Abnormal electrocardiogram [ECG] [EKG]; I10 Essential (primary) hypertension; N17.8 Other acute kidney failure; J18.8 Other pneumonia, unspecified organism; E86.0 Dehydration; E78.2 Mixed hyperlipidemia; R06.02 Shortness of breath; K21.9 Gastro-esophageal reflux disease without esophagitis; J90 Pleural effusion, not elsewhere classified; D64.89 Other specified anemias; R26.89 Other abnormalities of gait and mobility; E87.6 Hypokalemia